=== PATIENT | female | born 1965 | race Caucasian/White ===

== ENCOUNTER 2023-02-09 13:08 | Outpatient (AMB) | payer OTHER, SELFPAY ==
--- NOTE | 2023-02-09 13:12 | A.OFFVIS_ITS ---
Intake Vital Signs 02/09/23 13:14 Height 5 ft Weight 196 lb BMI 38.3 BP 122/78 Blood Pressure Location Rt brachial Position Sitting Respiration 16 Pulse 86 Pulse Source Pulse Oximeter Temp 97.9 F Temp Source Temporal Artery Scan Pulse Oximetry (%) 97 Oxygen Delivery Method Room Air Intake Visit Reasons: Arthropic Psoriasis Allergies Corticosteroids (Glucocorticoids) Adverse Reaction (Unknown, Verified 02/09/23 13:19) Hallucinations fluoxetine Adverse Reaction (Unknown, Verified 02/09/23 13:19) Rash metformin Adverse Reaction (Verified 02/09/23 13:19) Abdominal Pain Medication List - Last Reconciled 02/09/23 by Ellis Arnold MD apremilast (Otezla) 30 mg PO BID diclofenac sodium 1% 1 - 2 grams topical QID PRN fluoride (sodium) 1.1% PO DAILY hydrochlorothiazide 25 mg PO DAILY lisinopril 5 mg PO DAILY sertraline 12.5 mg PO DAILY HPI HPI Comments History of Present Illness Details This is a 57-year-old female who presents for evaluation of psoriatic arthritis. 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 She states that she had psoriasis since her 20s. She was diagnosed with psoriatic arthritis in 2006. She was on multiple DMARDs. Most recently she was started on Otezla last year and it is working quite well for her joints. Her skin psoriasis has not been a problem in recent years. Today patient is feeling very well overall. She gets some lower back stiffness in the morning that can last up to 30 minutes, she occasionally takes Aleve for her low back pain if she knows that she will have to be active that day. [facility] Medical History Degenerative joint disease of hand Essential hypertension Factor II deficiency GERD (gastroesophageal reflux disease) Lactose intolerance Low back pain Major depressive disorder Microscopic colitis Osteitis Pain in joint, multiple sites Psoriatic arthritis Rheumatic fever Rosacea Surgical History S/P ectopic Family History Mother Pancreatic cancer, Onset Age: 86 Brother Type 2 diabetes mellitus, Onset Age: 60 History of substance abuse Sister Hypertension Hyperlipidemia Arthritis Brother Stroke, Onset Age: 56 Essential hypertension Mixed hyperlipidemia Father Stroke Brother Myocardial infarction Social History Alcohol intake: current Alcohol intake frequency: a few times a month Patient Tobacco Use Status: Former Tobacco user Quit Date: 2000 Cigarettes Per Day: 10 Years Smoked: 6 Female Reproductive History Menstrual Total pregnancies: 1 Ab spontaneous: 1 Review of Systems Musc Reports back pain, Reports arthralgias and Reports stiffness Physical Exam Vital Signs: Last Vital Signs Temp 97.9 F 02/09/23 13:14 Pulse 86 02/09/23 13:14 Resp 16 02/09/23 13:14 BP 122/78 02/09/23 13:14 Pulse Ox 97 02/09/23 13:14 Oxygen Delivery Method Room Air 02/09/23 13:14 BMI result Body Mass Index 38.3 Const General: cooperative and healthy appearing Nutritional Appearance: obese Orientation/consciousness: patient oriented x3 Limitations: no limitations HEENT Head: Yes normocephalic and Yes atraumatic Mouth: moist mucous membranes Resp Effort & Inspection: normal respiratory effort and able to speak in complete sentences Auscultation: clear to auscultation bilaterally Cardio Rate: regular rate Rhythm: regular rhythm Heart sounds: S1 normal heart sound present GI Inspection: No distended Palpation (GI): Soft to palpation and nontender Skin General skin exam: no rashes or lesions noted Neuro General: patient oriented x3 Extrem Other: No active synovitis Equivocal CE test bilaterally Results Reviewed Results Reviewed: Labs 05/2022? CRP 31 (<9) ESR 49 CBC unremarkable Assessment & Plan Assessment & Plan (1) Psoriatic arthritis: Comment: dx 2006 SSZ 2011 effective- until 2019. Medication was no longer available during the pandemic 2019 ineffective Otezla 2021 very effective Code(s): L40.50 - Arthropathic psoriasis, unspecified Plan: This is a 57-year-old female with past medical history of psoriasis and p soriatic arthritis who presents as a new patient. 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 Patient is doing very well overall on Otezla with no reported side effects. No mood changes. Continue Otezla 30 mg Twice daily. Check labs before next visit in 3 months Patient gets intermittent morning stiffness of her back improved with ibuprofen. Advised patient that if her back pain becomes progressively worse will consider SI joint x-rays and/or MRI Orders: Orders Comprehensive Met. Panel 3 Months L40.50 - Arthropathic psoriasis, unspecified C Reactive Protein 3 Months L40.50 - Arthropathic psoriasis, unspecified Complete Blood Count Auto Diff 3 Months L40.50 - Arthropathic psoriasis, unspecified Erythrocyte Sedimentation Rate 3 Months L40.50 - Arthropathic psoriasis, unspecified Hepatitis A,B,C Profile 3 Months Z11.59 - Encounter for screening for other viral diseases T Spot TB 3 Months Z11.7 - Encounter for testing for latent tuberculosis infection Medications: New apremilast (Otezla) 30 mg PO BID 180 tabs 1RF Coding Level of Care Code New Pt Level 3 (71367) Diagnoses Psoriatic arthritis L40.50
[2023-02-09 13:14] VITALS: BP 122/78; PULSE 86; RESP 16; TEMP 36.6; O2SAT 97; BMI 38.3
== END 2023-02-09 13:46 | disposition home or self-care (01) ==
PROVIDERS: Referring Provider Nurse Practitioner Family; Visit Provider Student in an Organized Health Care Education/Training Program
DX: L40.50 Arthropathic psoriasis, unspecified (principal)
CPT/HCPCS: 99203

== ENCOUNTER → 2023-02-09 13:08 | Outpatient (BNVA) | payer OTHER, SELFPAY | PROVIDERS: Referring Provider Nurse Practitioner Family; Visit Provider Student in an Organized Health Care Education/Training Program ==

== ENCOUNTER 2023-05-13 13:36 | Outpatient (AMB) | payer OTHER, SELFPAY ==
--- NOTE | 2023-05-13 13:39 | A.OFFVIS_ITS ---
Intake Vital Signs 05/13/23 13:40 Height 5 ft 0.51 in Weight 196 lb 10.437 oz BMI 37.8 BP 118/64 Blood Pressure Location Rt brachial Position Sitting Pulse 82 Pulse Source Pulse Oximeter Temp 97.2 F Temp Source Skin Pulse Oximetry (%) 94 Intake Visit Reasons: PsA Intake Note: Pt presents today for her 2nd visit to discuss lab results. She continues with Otezla bid and occasional use of ibuprofen. 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: No Accompanied by: Self / Same As Patient Allergies Corticosteroids (Glucocorticoids) Adverse Reaction (Unknown, Verified 05/13/23 13:43) Hallucinations fluoxetine Adverse Reaction (Unknown, Verified 05/13/23 13:43) Rash metformin Adverse Reaction (Verified 05/13/23 13:43) Abdominal Pain Medication List - Last Reconciled 05/13/23 by Ellis Arnold MD apremilast (Otezla) 30 mg PO BID diclofenac sodium 1% 1 - 2 grams topical QID PRN fluoride (sodium) 1.1% PO DAILY hydrochlorothiazide 12.5 mg PO DAILY lisinopril 5 mg PO DAILY sertraline 12.5 mg PO DAILY HPI HPI Comments History of Present Illness Details 58-year-old female with psoriasis and ps oriatic arthritis returns for follow-up. On Otezla 30 mg Twice daily. States that she is doing well overall. Recently she has been having some right lower back and right buttock pain. Worse with walking. She has morning stiffness of her back lasting around 10 minutes. She also gets right shoulder pain that she believes is due to her lying on her right side while sleeping. Has any swollen joints. Psoriasis is well controlled except for a few patches on her elbows. She is compliant with Otezla. States that she received a notification from her insurance company stating that Otezla would not be covered. Initial history: This is a 57-year-old female who presents for evaluation of psoriatic arthritis. 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 She states that she had psoriasis since her 20s. She was diagnosed with psoriatic arthritis in 2006. She was on multiple DMARDs. Most recently she was started on Otezla last year and it is working quite well for her joints. Her skin psoriasis has not been a problem in recent years. Today patient is feeling very well overall. She gets some lower back stiffness in the morning that can last up to 30 minutes, she occasionally takes Aleve for her low back pain if she knows that she will have to be active that day. [facility] Medical History (Updated 05/13/23 @ 14:41 by Ellis Arnold MD) Rheumatic fever Factor II deficiency Osteitis Microscopic colitis Rosacea Major depressive disorder Essential hypertension Low back pain GERD (gastroesophageal reflux disease) Degenerative joint disease of hand Lactose intolerance Pain in joint, multiple sites Psoriatic arthritis Surgical History S/P ectopic Family History Mother Pancreatic cancer, Onset Age: 86 Brother Type 2 diabetes mellitus, Onset Age: 60 History of substance abuse Sister Hypertension Hyperlipidemia Arthritis Brother Stroke, Onset Age: 56 Essential hypertension Mixed hyperlipidemia Father Stroke Brother Myocardial infarction Social History Alcohol intake: current Alcohol intake frequency: a few times a month Patient Tobacco Use Status: Former Tobacco user Quit Date: 2000 Cigarettes Per Day: 10 Years Smoked: 6 Review of Systems Musc Reports back pain, Denies joint swelling and Reports stiffness Skin/Breast Reports rash Physical Exam Vital Signs: Last Vital Signs Temp 97.2 F 05/13/23 13:40 Pulse 82 05/13/23 13:40 BP 118/64 05/13/23 13:40 Pulse Ox 94 05/13/23 13:40 BMI result Body Mass Index 37.8 Const General: cooperative and healthy appearing Nutritional Appearance: obese Orientation/consciousness: patient oriented x3 Limitations: no limitations HEENT Head: Yes normocephalic and Yes atraumatic Mouth: moist mucous membranes Resp Effort & Inspection: normal respiratory effort and able to speak in complete sentences Cardio Rate: regular rate Rhythm: regular rhythm Heart sounds: S1 normal heart sound present GI Inspection: No distended Palpation (GI): Soft to palpation and nontender Skin Other: Small psoriasis patches on extensor surface of both elbows Neuro General: patient oriented x3 Extrem Other: No active synovitis Angelita test 10-14.5 cm Negative straight leg raise test Equivocal CE test bilaterally Results Reviewed Results Reviewed: Labs 05/2022? CRP 31 (<9) ESR 49 CBC unremarkable Labs 04/2023? ESR 43? CRP 19.7 (<9.0) CBC unremarkable CMP unremarkable T spot negative Hepatitis a IgM negative hepatitis-B surface antigen negative Hepatitis-B core antibody IgM negative? Hepatitis-C antibody negative? Assessment & Plan Assessment & Plan (1) Psoriatic arthritis: Comment: dx 2006 SSZ 2011 effective- until 2019. Medication was no longer available during the pandemic Humira 2019 ineffective Otezla 2021 very effective Code(s): L40.50 - Arthropathic psoriasis, unspecified Plan: This is a 58-year-old female with past medical history of psoriasis and psori atic arthritis who presents for follow-up. On Otezla 30 mg Twice daily. Patient is having right lower back pain and right buttock pain, worse with activity with morning stiffness lasting 10-15 minutes. Symptoms rather consistent with degenerative spinal arthritis rather than inflammatory sacroiliitis. If patient's symptoms continue to progress. Will consider checking SI joint x-rays to evaluate for sacroiliitis Continue Otezla 30 mg Twice daily. Check labs before next visit in 4 months (2) CRP elevated: Code(s): R79.82 - Elevated C-reactive protein (CRP) Plan: Patient has persistently elevated CRP. No symptoms of active inflammatory arthritis. There are no fevers or weight loss. Can be related to metabolic syndrome Plan I spent 26 minutes reviewing patient's chart, evaluating patient, ordering diagnostic workup, counseling patient and documenting in the chart Orders: Orders C Reactive Protein 4 Months L40.50 - Arthropathic psoriasis, unspecified Erythrocyte Sedimentation Rate 4 Months L40.50 - Arthropathic psoriasis, unspecified Complete Blood Count Auto Diff 4 Months L40.50 - Arthropathic psoriasis, unspecified Comprehensive Met. Panel 4 Months L40.50 - Arthropathic psoriasis, unspecified Coding Level of Care Code Est Pt Level 4 (26218) Diagnoses Psoriatic arthritis L40.50 CRP elevated R79.82
[2023-05-13 13:40] VITALS: BP 118/64; PULSE 82; TEMP 36.2; O2SAT 94; BMI 37.8
== END 2023-05-13 14:23 | disposition home or self-care (01) ==
PROVIDERS: Visit Provider Student in an Organized Health Care Education/Training Program
DX: L40.50 Arthropathic psoriasis, unspecified (principal); R79.82 Elevated C-reactive protein (CRP)
CPT/HCPCS: 99214

== ENCOUNTER → 2023-05-13 13:36 | Outpatient (BNVA) | payer OTHER, SELFPAY | PROVIDERS: Visit Provider Student in an Organized Health Care Education/Training Program ==

== ENCOUNTER 2023-09-13 16:12 | Outpatient (AMB) | payer OTHER, SELFPAY ==
--- NOTE | 2023-09-13 16:11 | A.OFFVIS_ITS ---
Intake Vital Signs 09/13/23 16:14 Height 5 ft 0.5 in Weight 198 lb 13.711 oz BMI 38.2 BP 108/64 Blood Pressure Location Rt brachial Position Sitting Pulse 88 Pulse Source Pulse Oximeter Temp 96.9 F Temp Source Skin Intake Visit Reasons: PsA Intake Note: Patient last seen 05/13/23 presents today for follow up and test results. Pt did not complete labs, LVM 09/09.New lab slips printed and she will take them to [facility] in [place]. 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 Required: No Accompanied by: Self / Same As Patient Allergies Corticosteroids (Glucocorticoids) Adverse Reaction (Unknown, Verified 09/13/23 16:16) Hallucinations fluoxetine Adverse Reaction (Unknown, Verified 09/13/23 16:16) Rash metformin Adverse Reaction (Verified 09/13/23 16:16) Abdominal Pain Medication List - Last Reconciled 09/13/23 by Ellis Arnold MD apremilast (Otezla) 30 mg PO BID diclofenac sodium 1% 1 - 2 grams topical QID PRN fluoride (sodium) 1.1% PO DAILY hydrochlorothiazide 12.5 mg PO DAILY lisinopril 5 mg PO DAILY sertraline 12.5 mg PO DAILY HPI HPI Comments History of Present Illness Details 58-year-old female with psoriasis and ps oriatic arthritis returns for follow-up. On Otezla 30 mg Twice daily. Patient stated that for the 1 month of June she was sick with bronchitis and she needed antibiotics and inhalers. Patient gets significant psychiatric side effects with steroids and she did not take any steroids. She states that for the last 2 weeks she has been having right shoulder pain. She does not recall any significant trauma to the shoulder except for throwing a ball to her puppy twice. She recalls that more than 20 years ago she had small tear in her right rotator cuff and received a steroid injection, she had significant psychiatric side effects after the injection and needed to go to the hospital. For the last few months she has been having right lower back pain, worse with activity as well as pain on the outside of her right hip. Her psoriasis is doing well overall. Except for stubborn patches on the extensor surface of her elbows. Those are stable Initial history: This is a 57-year-old female who presents for evaluation of psoriatic arthritis. 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 She states that she had psoriasis since her 20s. She was diagnosed with psoriatic arthritis in 2006. She was on multiple DMARDs. Most recently she was started on Otezla last year and it is working quite well for her joints. Her skin psoriasis has not been a problem in recent years. Today patient is feeling very well overall. She gets some lower back stiffness in the morning that can last up to 30 minutes, she occasionally takes Aleve for her low back pain if she knows that she will have to be active that day. [facility] Medical History (Updated 09/13/23 @ 16:45 by Ellis Arnold MD) Rheumatic fever Factor II deficiency Osteitis Microscopic colitis Rosacea Major depressive disorder Essential hypertension Low back pain GERD (gastroesophageal reflux disease) Degenerative joint disease of hand Lactose intolerance Pain in joint, multiple sites Psoriatic arthritis Surgical History S/P ectopic Family History Mother Pancreatic cancer, Onset Age: 86 Brother Type 2 diabetes mellitus, Onset Age: 60 History of substance abuse Sister Hypertension Hyperlipidemia Arthritis Brother Stroke, Onset Age: 56 Essential hypertension Mixed hyperlipidemia Father Stroke Brother Myocardial infarction Social History Alcohol intake: current Alcohol intake frequency: a few times a month Patient Tobacco Use Status: Former Tobacco user Quit Date: 2000 Cigarettes Per Day: 10 Years Smoked: 6 Review of Systems Musc Reports back pain, Reports limited range of motion and Reports stiffness Physical Exam Vital Signs: Last Vital Signs Temp 96.9 F 09/13/23 16:14 Pulse 88 09/13/23 16:14 BP 108/64 09/13/23 16:14 BMI result Body Mass Index 38.2 Const General: cooperative and healthy appearing Nutritional Appearance: obese Orientation/consciousness: patient oriented x3 Limitations: no limitations HEENT Head: Yes normocephalic and Yes atraumatic Resp Effort & Inspection: normal respiratory effort and able to speak in complete sentences Cardio Rate: regular rate Rhythm: regular rhythm Skin Other: Small psoriasis patches on extensor surface of both elbows Neuro General: patient oriented x3 Extrem Other: No active synovitis Negative empty can test bilaterally Positive infraspinatus test on the right Positive lift-off test on the right Right trochanteric bursa area tenderness with negative Carlos's test Right lower paraspinal muscle tenderness Angelita test 10-14.5 cm Negative CE test bilaterally y Results Reviewed Results Reviewed: Labs 05/2022? CRP 31 (<9) ESR 49 CBC unremarkable Labs 04/2023? ESR 43? CRP 19.7 (<9.0) CBC unremarkable CMP unremarkable T spot negative Hepatitis a IgM negative hepatitis-B surface antigen negative Hepatitis-B core antibody IgM negative? Hepatitis-C antibody negative? Assessment & Plan Assessment & Plan (1) Psoriatic arthritis: Comment: dx 2006 SSZ 2011 effective- until 2019. Medication was no longer available during the pandemic Humira 2019 ineffective Otezla 2021 very effective Code(s): L40.50 - Arthropathic psoriasis, unspecified Plan: This is a 58-year-old female with past medical history of psoriasis and psoriatic arthritis who presents for follow-up. On Otezla 30 mg Twice daily. Doing well overall. Psoriasis and psoriatic arthritis are well controlled. I do not see any swollen joints. She continues to have small psoriasis patches on the extensor surface of both elbows, those have been stubborn. Check labs to evaluate disease activity. Continue Otezla 30 mg Twice daily. Check labs before next visit in 4 months (2) Pain in joint, multiple sites: Code(s): M25.50 - Pain in unspecified joint Plan: Patient is having right shoulder pain she has known history of right rotator cuff tear. He is also having right lower back pain and right trochanteric bursitis pain. This can be precipitated by her right lower back pain. Patient gets significant psychiatric side effects with steroid she refuses any steroid injections Start OTC Aleve 440 mg Twice daily for anti-inflammatory action. Patient will see a chiropractor soon for her low back pain. I provided patient with a printout of home exercises for greater trochanteric pain syndrome. (3) CRP elevated: Code(s): R79.82 - Elevated C-reactive protein (CRP) Plan: Patient has persistently elevated CRP. No symptoms of active inflammatory arthritis. There are no fevers or weight loss. Can be related to metabolic syndrome Plan I spent 26 minutes reviewing patient's chart, evaluating patient, ordering diagnostic workup, counseling patient and documenting in the chart Orders: Orders Complete Blood Count Auto Diff 4 Months L40.50 - Arthropathic psoriasis, unspecified Erythrocyte Sedimentation Rate 4 Months L40.50 - Arthropathic psoriasis, unspecified Comprehensive Met. Panel 4 Months L40.50 - Arthropathic psoriasis, unspecified C Reactive Protein 4 Months L40.50 - Arthropathic psoriasis, unspecified Coding Level of Care Code Est Pt Level 4 (71264) Diagnoses Psoriatic arthritis L40.50 Pain in joint, multiple sites M25.50 CRP elevated R79.82
[2023-09-13 16:14] VITALS: BP 108/64; PULSE 88; TEMP 36.1; BMI 38.2
== END 2023-09-13 16:39 | disposition home or self-care (01) ==
PROVIDERS: PCP Nurse Practitioner Family; Visit Provider Student in an Organized Health Care Education/Training Program
DX: L40.50 Arthropathic psoriasis, unspecified (principal); M25.50 Pain in unspecified joint; R79.82 Elevated C-reactive protein (CRP)
CPT/HCPCS: 99214

== ENCOUNTER → 2023-09-13 16:12 | Outpatient (BNVA) | payer OTHER, SELFPAY | PROVIDERS: PCP Nurse Practitioner Family; Visit Provider Student in an Organized Health Care Education/Training Program ==

== ENCOUNTER 2024-07-24 08:33 | Outpatient (AMB) | payer OTHER, SELFPAY ==
--- NOTE | 2024-07-24 08:34 | MHC.OFFVIS ---
Vital Signs 07/24/24 08:39 Height 5 ft 0.5 in Weight 202 lb 6.15 oz BMI 38.9 BP 115/72 Blood Pressure Location Lt brachial Position Sitting Pulse 79 Pulse Source Pulse Oximeter Pulse Oximetry (%) 98 Oxygen Delivery Method Room Air Intake Visit Reasons: PsA Intake Note: Patient presents for PsA. Allergies Corticosteroids (Glucocorticoids) Adverse Reaction (Unknown, Verified 07/24/24 08:37) Hallucinations fluoxetine Adverse Reaction (Unknown, Verified 07/24/24 08:37) Rash metformin Adverse Reaction (Verified 07/24/24 08:37) Abdominal Pain Medication List - Last Reconciled 07/24/24 by Ellis Arnold MD apremilast (Otezla) 30 mg PO BID diclofenac sodium 1% 1 - 2 grams topical QID PRN fluoride (sodium) 1.1% PO DAILY hydrochlorothiazide 12.5 mg PO DAILY lisinopril 2.5 mg PO DAILY sertraline 12.5 mg PO DAILY HPI Comments Details: 59-year-old female with psoriasis and psoriatic arthritis returns for follow-up. On Otezla 30 mg Twice daily. After last visit I suggested that patient start taking Aleve 440 mg Twice daily to treat her pains. Patient apparently misunderstood me and she has been taking it regularly for the last 6 months. She states that her joint pains are overall improved. She was diagnosed with obstructive sleep apnea and started on a CPAP machine which helps. Since she started using the CPAP machine her blood pressure meds have been cut in half. She denies any significant psoriasis rashes. Initial history: This is a 57-year-old female who presents for evaluation of psoriatic arthritis. 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 She states that she had psoriasis since her 20s. She was diagnosed with psoriatic arthritis in 2006. She was on multiple DMARDs. Most recently she was started on Otezla last year and it is working quite well for her joints. Her skin psoriasis has not been a problem in recent years. Today patient is feeling very well overall. She gets some lower back stiffness in the morning that can last up to 30 minutes, she occasionally takes Aleve for her low back pain if she knows that she will have to be active that day. [facility] Medical History ADRIANNA (obstructive sleep apnea) Rheumatic fever Factor II deficiency Osteitis Microscopic colitis Rosacea Major depressive disorder Essential hypertension Low back pain GERD (gastroesophageal reflux disease) Degenerative joint disease of hand Lactose intolerance Pain in joint, multiple sites Psoriatic arthritis Surgical History S/P ectopic Family History Mother Pancreatic cancer, Onset Age: 86 Brother Type 2 diabetes mellitus, Onset Age: 60 History of substance abuse Sister Hypertension Hyperlipidemia Arthritis Brother Stroke, Onset Age: 56 Essential hypertension Mixed hyperlipidemia Prostate cancer Father Stroke Brother Myocardial infarction Social History Alcohol intake: current Alcohol intake frequency: a few times a month Patient Tobacco Use Status: Former Tobacco user Cigarettes Per Day: 10 Years Smoked: 6 Review of Systems Musc Reports arthralgias, Denies joint swelling and Denies stiffness Physical Exam Vital Signs: Last Vital Signs Pulse 79 07/24/24 08:39 BP 115/72 07/24/24 08:39 Pulse Ox 98 07/24/24 08:39 Oxygen Delivery Method Room Air 07/24/24 08:39 BMI result Body Mass Index 38.9 Const General: cooperative and healthy appearing Nutritional Appearance: obese Orientation/consciousness: patient oriented x3 Limitations: no limitations HEENT Head: Yes normocephalic and Yes atraumatic Mouth: moist mucous membranes Resp Effort & Inspection: normal respiratory effort and able to speak in complete sentences Auscultation: clear to auscultation bilaterally Cardio Rate: regular rate Rhythm: regular rhythm Skin Other: Very subtle dry skin patches on the extensor aspect of both elbows Neuro General: patient oriented x3 Extrem Other: No active synovitis today Assessment & Plan Assessment & Plan (1) Psoriatic arthritis: Comment: dx 2006 SSZ 2011 effective- until 2019. Medication was no longer available during the pandemic Hum2019 ineffective Otezla 2021 very effective Code(s): L40.50 - Arthropathic psoriasis, unspecified Category: Medical Plan: This is a 59-year-old female with psoriasis and psoriatic arthritis who presents for follow-up. On Otezla 30 mg Twice daily. Patient has been taking naproxen 440 mg Twice daily regularly since last visit. Apparently she misunderstood me, I meant to take it only for 2-3 weeks. Discontinue naproxen and take it only as needed Her inflammatory markers are chronically elevated likely due to metabolic syndrome. Continue Otezla 30 mg Twice daily. Labs before next visit in 6 months (2) CRP elevated: Code(s): R79.82 - Elevated C-reactive protein (CRP) Category: Medical Plan: Patient has persistently elevated CRP. No symptoms of active inflammatory arthritis. There are no fevers or weight loss. Can be related to metabolic syndrome Plan I spent 26 minutes reviewing patient's chart, evaluating patient, ordering diagnostic workup, counseling patient and documenting in the chart Orders: Orders Erythrocyte Sedimentation Rate 6 Months L40.50 - Arthropathic psoriasis, unspecified Complete Blood Count Auto Diff 6 Months L40.50 - Arthropathic psoriasis, unspecified Comprehensive Met. Panel 6 Months L40.50 - Arthropathic psoriasis, unspecified C Reactive Protein 6 Months L40.50 - Arthropathic psoriasis, unspecified Coding Level of Care Code Est Pt Level 4 (86707) Diagnoses Psoriatic arthritis L40.50 CRP elevated R79.82
[2024-07-24 08:39] VITALS: BP 115/72; PULSE 79; O2SAT 98; BMI 38.9
--- OUTSIDE RECORDS SUMMARY | 2024-07-24 08:43 | XMS_ITS | Continuity of Care Document ---
Author Organization [facility], , [facility], OFFICE Address [address] [place] [address] Care Team Providers Care Rn Visiting Name Role Phone KEVIN SALINAS [employer] RAFIQ FLOOD Orthopedic Surgeon NISHA JARA Primary Care Provider SIVAN CATALAN [employer] Assessment Encounter Date Assessment Date Assessment LastModified by Organization Details LastModified Time 07/03/2024 07/03/2024 F/u in 6 months as scheduled and via portal [email or web address] Not available 07/03/2024 08:41:21 Plan of Treatment Reminders Order Date Submit Date Provider Last Modified By Organization Details Last Modified Time Details Appointments Mammo Roxanne de la rosa 2024 02:30P M [facility] Mammography Not available Not available Not available LAB Follo w-Up 2024 07:40A M [facility] Lab Not available Not available Not available Casper ess Visit 30 2024 02:00P M NISHA Jara NP Not available Not available Not available Lab HbA1c (hemo globi n A1c), blood 2023 025 [facility], [address] [place] [address], [id number], 07/03/2024 08:38:48 BMP, serum or plasm a 2023 025 [facility], [address] [place] [address], [id number], 07/03/2024 08:38:48 ESR (eryt hrocy te sedim entat ion rate) , blood 2023 [email or web address] [place] [address] Lab, [address] [place] [address], [id number], 07/19/2024 07:18:54 C-keron ctive prote in, quant itati ve, serum or plasm a 2023 024 [email or web address], [address] [place] [address], [id number], 07/12/2024 11:43:37 pap, IG - 30-65 + years old [address] [facility], [address] [place] [address], [id number], 07/06/2024 14:27:42 HPV E6+E7 mRNA, quali tativ e PCR, cervi x [address] [facility], [address] [place] [address], [id number], 07/06/2024 07:59:39 Referral None recor ded. Procedures None recor ded. Surgeries None recor ded. Imaging MAMMO , scree tad, tomos ynthe sis, bilat eral - 2nd Look Consu lt/Di ag Mammo /US Breas t/Rd ded Asp/B reast Bx/Cl ip Place ment, as clini kasey indic ated. 2023 024 [facility] (Imaging), [address], [place], [address], 07/03/2024 13:06:20 Medication Orders lisin opril 2.5 mg table t 2023 024 [facility][id number], [address] [place], [id number], 07/03/2024 08:23:42 Patient TargetsNo targets recorded. Patient InstructionsNo instructions recorded. Reason for Referral None Reported. Problems Name Problem SNOMED Code Status Onset Date Resolution Date Notes Provider Name and Address Organization Details Recorded Time Microcal cificati ons of the breast 45610766 Completed 05/26/2016 Payton Best D.O. [address] [place] [address], [address] , [facility] 6 08:40:41 Brachial neuritis 86522990 Completed 200512/05/2018 Payton Best D.O. [address] [place] [address], [address] , [facility] 10:09:59 Increase d blood pressure 88172288 Completed 01/21/2016 Payton Best D.O. [address] [place] [address], [address] , [facility] 6 10:19:13 Obesity 944137153 Completed 04/14/2022 Removal Reason: morbid obesity added to the problem list Elizabeth Lin LPN [facility] 2 12:40:41 [facility] hyperten aaliyah 87235704 Active Not Available [facility] 3 05:45:32 Shoulder pain 51142815 Completed 01/21/2016 Payton Best D.O. [address] [place] [address], , [facility] 6 10:18:52 Neoplasm of skin 952070085 Completed 01/21/2016 Payton Best D.O. [address] [place] [address], , [facility] 6 10:18:02 Major depressi ve disorder 285594870 Completed 12/29/2023 NISHA Jara NP [address] [place] [address], , [facility] 4 11:12:47 Allergic rhinitis 32475033 Active Not Available [facility] 3 05:45:32 Rhinitis medicame ntosa 95240690 Completed 05/17/2014 MISTY Giron [address] [place] [address], , [facility] 5 15:22:18 Upper respirat ory infectio n 51677950 Completed 05/17/2014 MISTY Giron [address] [place] [address], , [facility] 5 15:22:18 Photoder matitis 51920480 Completed 01/21/2016 sun/ROSENDOZ Payton Best D.O. [address] [place] [address], [address] , [facility] 6 10:18:14 Depressi ve disorder 49465425 Completed 05/17/2014 MISTY Giron [address] [place] [address], , [facility] 5 15:22:18 Impaired fasting glycemia 476920435 Active Not Available [facility] 3 05:45:32 Gastroes ophageal reflux disease 103046230 Active Not Available [facility] 3 05:45:32 Multiple joint pain 46283552 Completed 12/29/2023 NISHA Jara NP [address] [place] [address], [address] , [facility] 4 11:12:26 Degenera tive joint disease of hand 77271511 Completed 12/29/2023 NISHA Jara NP [address] [place] [address], [address] , [facility] 4 11:09:49 Menopaus al flushing 897698224 Completed 01/21/2016 Payton Best D.O. [address] [place] [address], , [facility] 6 10:16:38 Pneumoni a 156190539 Completed 01/21/2016 Payton Best D.O. [address] [place] [address], , [facility] 6 10:16:52 Anemia 928662590 Completed 09/18/2019 Payton Best D.O. [address] [place] [address], , [facility] 0 10:17:19 Lymphade nopathy 95880227 Completed 01/21/2016 Payton Best D.O. [address] [place] [address], [address] , [facility] 6 10:18:27 Microsco pic colitis 648585546 Active diagnose d 10 years ago with GI also lactose intolera nce. Not Available [facility] 3 05:45:32 Bacteria l pneumoni a 57083802 Completed 01/21/2016 Payton Best D.O. [address] [place] [address], [address] , [facility] 6 10:20:08 Electroc ardiogra m abnormal 298130302 Completed 01/21/2016 Payton Best D.O. [address] [place] [address], [address] , [facility] 6 10:17:43 Cough 69173709 Completed 01/21/2016 persista nt after pneumoni a Payton Best D.O. [address] [place] [address], [address] , [facility] 6 10:20:05 Postmeno [facility] state 70686897 Completed 201504/02/2024 NISHA Jara NP [address] [place] [address], [address] , [facility] 4 12:10:22 Factor II deficien cy 65101905 Active 2015 ASA PRN NISHA Jara NP [address] [place] [address], [address] , [facility] 4 11:10:03 Major depressi on, melancho lic type 237136244 Completed 201605/31/2017 Payton Best D.O. [address] [place] [address], [address] , [facility] 7 09:37:12 Rosacea 424560796 Active 2018 R eye Not Available [facility] 3 05:45:32 Psoriati c arthriti s 759551557 Active 2021 Not Available [facility] 3 05:45:32 Osteitis 066761412 Completed 202104/02/2024 osteitis pubis L>R per MRI 02/24/22 NISHA Jara NP [address] [place] [address], [address] , [facility] 4 12:10:36 Morbid obesity 361193481 Completed 202112/02/2023 BMI > or = 35 with diagnosi s of hyperten aaliyah NISHA Jara NP [address] [place] [address], [address] , [facility] 4 18:45:46 Prediabe britton 690188548 Completed 202104/29/2023 NISHA Jara NP [address] [place] [address], [address] , [facility] 3 12:40:51 Blephari tis 36127999 Active 2022 NISHA Jara NP [address] [place] [address], [address] , [facility] 3 11:58:30 Intermit tent palpitat ions 085409195 Active 2022 NISHA Jara NP [address] [place] [address], [address] , [facility] 3 12:17:33 Large tonsils 662283222 Active 2022 NISHA Jara NP [address] [place], [address] , [facility] 3 12:21:17 Obstruct damir sleep apnea syndrome 51959355 Active 2023 HST 11/2023 - followin g with sleep med NISHA Jara NP [address] [place], [address] , [facility] 4 18:46:08 Moderate recurren t major depressi on 33513400 Active 2023 NISHA Jara NP [address] [place] [address], [address] , [facility] 4 11:12:42 Contusio n 119779400 Completed 200210/03/2011 MISTY Giron [address] [place] [address], [address] , [facility] 5 15:22:19 Palpitat ions 61632073 Completed 200310/03/2011 MISTY Giron [address] [place] [address], [address] , [facility] 5 15:22:19 Constipa tion 47149646 Completed 200410/03/2011 MISTY Giron [address] [place] [address], [address] , [facility] 5 15:22:18 Diarrhea 82660930 Completed 10/03/2011 MISTY Giron [address] [place] [address], [address] , [facility] 5 15:22:19 Disorder of shoulder 268899153 Completed 200610/03/2011 MISTY Giron [address] [place] [address], [address] , [facility] 5 15:22:19 Multiple joint pain 39110674 Completed 10/03/2011 NISHA Jara NP [address] [place] [address], [address] , [facility] 4 11:12:26 Multiple joint pain 18283665 Completed 09/20/2012 NISHA Jara NP [address] [place] [address], [address] , [facility] 4 11:12:26 Neck pain 75265060 Completed 200005/14/2013 MISTY Giron [address] [place] [address], [address] , [facility] 5 15:22:19 Closed fracture of ankle 50425586 Completed 06/06/2013 MISTY Giron [address] [place] [address], [address] , [facility] 5 15:22:19 Bacteria l pneumoni a 54788627 Completed 200710/03/2011 Payton Best D.O. [address] [place] [address], [address] , [facility] 6 10:20:08 Psoriasi s with arthropa thy Completed 05/14/2013 MISTY Giron [address] [place] [address], [address] , [facility] 5 15:22:19 Diarrhea of presumed infectio us origin 03169640 Completed 10/03/2011 MISTY Giron [address] [place] [address], [address] , [facility] 5 15:22:18 Closed fracture of forearm 24721030 Completed 200210/03/2011 MISTY Giron [address] [place] [address], [address] , [facility] 5 15:22:19 Major depressi on, melancho lic type 896800699 Completed 05/17/2014 Payton Best D.O. [address] [place] [address], [address] , [facility] 7 09:37:12 Female genitali a finding 819771943 Completed 10/03/2011 MISTY Giron [address] [place] [address], [address] , [facility] 5 15:22:19 Pain in elbow 75834954 Completed 200210/03/2011 MISTY Giron [address] [place] [address], [address] , [facility] 5 15:22:19 Neoplasm of uncertai n behavior of skin 89656794 Completed 09/20/2012 MISTY Giron [address] [place] [address], [address] , [facility] 5 15:22:18 Pneumoni a 173581899 Completed 200705/14/2013 Payton Best D.O. [address] [place] [address], [address] , [facility] 6 10:16:52 Irregula r periods 29327403 Completed 200410/03/2011 MISTY Girno [address] [place] [address], [address] , [facility] 5 15:22:18 Bipolar I disorder , single manic episode 9934968 Completed 200705/17/2014 reaction to steroid injectio n MISTY Giron [address] [place] [address], [address] , [facility] 5 15:22:18 Psoriasi s 2830027 Active 2006 with psoriati c arthriti s Not Available [facility] 3 05:45:33 Spasm 89816766 Completed 200610/03/2011 MISTY Giron [address] [place] [address], [address] , [facility] 5 15:22:19 Crohn's disease 52314554 Completed 05/14/2013 MISTY Giron [address] [place] [address], [address] , [facility] 5 15:22:18 Elevated blood-pr essure reading without diagnosi s of hyperten aaliyah 759980228 Completed 09/20/2012 MISTY Giron [address] [place] [address], [address] , [facility] 5 15:22:19 Backache 849248114 Completed 200010/03/2011 MISTY Giron [address] [place] [address], [address] , [facility] 5 15:22:19 Pain in wrist 76133746 Completed 09/20/2012 MISTY Giron [address] [place] [address], [address] , [facility] 5 15:22:19 Pain in wrist 27053198 Completed 200210/03/2011 MISTY Giron [address] [place] [address], [address] , [facility] 5 15:22:19 Malaise and fatigue 779525539 Completed 200710/03/2011 MISTY Giron [address] [place] [address], [address] , [facility] 5 15:22:19 Contusio n of toe 22826609 Completed 200510/03/2011 MISTY Giron [address] [place] [address], [address] , [facility] 5 15:22:19 Disorder of tendon of shoulder region 29150110 Completed 200210/03/2011 MISTY Giron [address] [place] [address], [address] , [facility] 5 15:22:19 Right lower quadrant pain 114657781 Completed 200010/03/2011 MISTY Giron [address] [place] [address], [address] , [facility] 5 15:22:19 Right upper quadrant pain 270018908 Completed 200010/03/2011 MISTY Giron [address] [place] [address], [address] , [facility] 5 15:22:19 Mood disorder 01288666 Completed 200709/20/2012 MISTY Giron [address] [place] [address], [address] , [facility] 5 15:22:18 Shoulder pain 23629118 Completed 200510/03/2011 Payton Best D.O. [address] [place] [address], [address] , [facility] 6 10:18:52 Premenst rual tension syndrome 52356261 Completed 200705/14/2013 MISTY Giron [address] [place] [address], [address] , [facility] 5 15:22:18 Alcohol dependen 83642966 Completed 12/05/2018 Payton Best D.O. [address] [place] [address], [address] , [facility] 10:15:32 Allergic asthma without status asthmati cus 54885140 Completed 05/17/2014 MISTY Giron [address] [place] [address], [address] , [facility] 5 15:22:18 Sprain of ankle 35587116 Completed 200710/03/2011 MISTY Giron [address] [place] [address], [address] , [facility] 5 15:22:19 Menstrua tion finding Completed 200710/03/2011 MISTY Giron [address] [place] [address], [address] , [facility] 5 15:22:19 Joint pain in ankle and foot Completed 200710/03/2011 MISTY Giron [address] [place] [address], [address] , [facility] 5 15:22:19 Breathin g painful 91241966 Completed 200710/03/2011 MISTY Giron [address] [place] [address], [address] , [facility] 5 15:22:19 Adjustme nt disorder with depresse d mood 95533693 Completed 05/14/2013 MISTY Giron [address] [place] [address], [address] , [facility] 5 15:22:18 Breast lump 26983343 Completed 200309/20/2012 MISTY Giron [address] [place] [address], [address] , [facility] 5 15:22:18 Mammogra phy abnormal 160974089 Completed 05/14/2013 MISTY Giron [address] [place] [address], [address] , [facility] 5 15:22:19 Common cold 67119680 Completed 200610/03/2011 MISTY Giron [address] [place] [address], [address] , [facility] 5 15:22:18 Abdomina l pain 31821680 Completed 200810/03/2011 MISTY Giron [address] [place] [address], [address] , [facility] 5 15:22:19 On examinat ion - a rash Completed 200710/03/2011 MISTY Giron [address] [place] [address], [address] , [facility] 5 15:22:19 Abnormal cervical Papanico laou smear 120585987 Completed 200301/21/2016 Payton Best D.O. [address] [place] [address], [address] , [facility] 6 10:20:00 Female genital organ symptoms 954941872 Completed 200010/03/2011 MISTY Giron [address] [place] [address], [address] , [facility] 5 15:22:18 Menopaus al symptom 42949256 Completed 200409/20/2012 MISTY Giron [address] [place] [address], [address] , [facility] 5 15:22:18 Premenop ausal menorrha lesa Completed 200705/14/2013 MISTY Giron [address] [place] [address], [address] , [facility] 5 15:22:18 Acquired disorder of keratini zation 455129880 Completed 10/03/2011 MISTY Giron [address] [place] [address], [address] , [facility] 5 15:22:18 Low back pain 048877917 Active 2001 Not Available [facility] 3 05:45:32 Pain in limb 94607799 Completed 200510/03/2011 MISTY Giron [address] [place] [address], [address] , [facility] 5 15:22:19 Menopaus al and postmeno pausal disorder s 836638708 Completed 05/14/2013 MISTY Giron [address] [place] [address], [address] , [facility] 5 15:22:18 Arthropa thy 615066415 Completed 200610/03/2011 MISTY Giron [address] [place] [address], [address] , [facility] 5 15:22:19 Difficul ty speaking Completed 200305/14/2013 MISTY Giron [address] [place] [address], [address] , [facility] 5 15:22:19 Vaginiti s and vulvovag initis Completed 10/03/2011 MISTY Giron [address] [place] [address], [address] , [facility] 5 15:22:18 Noninfec tious gastroen teritis 45462075 Completed 200805/14/2013 MISTY Giron [address] [place] [address], [address] , [facility] 15:22:18 Notes:microscopic colitis Problem Notes None recorded. Procedures Surgical History Date Name Laterality Status Provider Name and Address Organization Details Recorded Time 10/28/19 22 Obesity counseling completed JONH Sainz [address] [place] [address], [address], [facility] 10/27/2021 10:21:56 05/06/20 15 Tassoni - Colonoscopy completed Elton Leger MD [address] [place] [address], [address], [facility] 05/06/2015 11:00:10 07/18/18 86 Treat ectopic completed MISTY Giron [address] [place] [address], [address], [facility] 05/14/2013 12:17:32 Imaging Results None recorded. Procedure Notes None recorded. Medical Equipment None Reported. Allergies Allergen ID Allergen Name Allergen Category Reaction Reaction Severity Criticality Documentation Date Start Date Code Code System Note Provider Name and Address Organization Details Recorded Time 84171 fluoxetin e medicatio n rash Not available Not available 02/27/2009 4493 RxNorm Not Available [facility] 1 06:05:20 544428 Product containin g glucocort icoid (product) medicatio n hallucina tions Not available Not available 02/06/2019 81690 6006 SNOMED Jewels Simons [place] [facility] 2 10:48:15 603472 metformin medicatio n abdominal pain Not available Not available 09/18/2019 6809 RxNorm NISHA Jara NP [address] [place] [address], [address], [facility] 3 11:46:36 Medications Name Sig Start Date Stop Date Status Note LastModified by Organization Details LastModified Time doxycycli ne hyclate 100 mg capsule TAKE 1 CAPSULE BY MOUTH TWICE A DAY FOR 10 DAYS. active Not Available Not Available No t Available azithromy heather 250 mg tablet TAKE 2 TABLETS BY MOUTH TODAY, THEN TAKE 1 TABLET DAILY FOR 4 DAYS 08/19 completed Not Available Not Available Not Available sertralin e 100 mg tablet TAKE 1 TABLET BY MOUTH DAILY active Not Available Not Available No t Available sulfasala zine 500 mg tablet,de layed release TAKE 2 TABLETS BY MOUTH TWICE A DAY 04/29 completed Not Available Not Available Not Available clobetaso l 0.05 % topical cream active has steroids in it Not Available Not Available Not Available LOLA Ankle Brace 07/03 completed AIRCAST LEFT Not Available Not Available Not Available Veronica Low Dose Aspirin 81 mg tablet,de layed release Take 1 tablet every day by oral route. active pt does forget to take daily but tries to remember Not Available Not Available Not Available Zyrtec 10 mg tablet Take 1 tablet every day by oral route. active Not Available Not Available No t Available hydrocort isone acetate 25 mg rectal supposito ry INSERT 1 SUPPOSIT ORY TWICE A DAY BY RECTAL ROUTE FOR 6 DAYS. active Not Available Not Available No t Available Sulfazine EC 500 mg tablet,de layed release TAKE 2 TABLETS BY MOUTH TWICE A DAY active Not Available Not Available No t Available cefadroxi l 500 mg capsule 05/17 completed Not Available Not Available Not Available ofloxacin 0.3 % ear drops 05/17 completed Not Available Not Available Not Available calcipotr iene 0.005 % topical cream APPLY A THIN LAYER TO AFFECTED AREA TWICE A DAY (RUB IN GENTLYAN D COMP.. active Not Available Not Available No t Available ranitidin e 150 mg tablet TAKE 1 TABLET BY MOUTH 1-2 TIMES A DAY 05/02 completed Pt stopped when recalled Not Available Not Available Not Available polymyxin B sulfate 10,000 unit-trim ethoprim 1 mg/mL eye drops 02/06 completed Not Available Not Available Not Available hydrochlo rothiazid e 12.5 mg capsule active Not Available Not Available Not Available sertralin e 25 mg tablet TAKE 1/2 TABLET DAILY BY MOUTH active Not Available Not Available No t Available omeprazol e 20 mg capsule,d elayed release TAKE ONE CAPSULE BY MOUTH EVERY DAY 05/31 completed Not Available Not Available Not Available aspirin 81 mg chewable tablet Chew 1 tablet every day by oral route. 09/17 completed Not Available Not Available Not Available lisinopri l 5 mg tablet TAKE 1/2 TABLET BY MOUTH EVERY DAY DIRECTED 07/03 completed Not Available Not Available Not Available hydrochlo rothiazid e 25 mg tablet TAKE 1 TABLET BY MOUTH EVERY DAY 07/03 completed taking 12.5 mg (1/2 tablet) Not Available Not Available Not Available diclofena c sodium 50 mg tablet,de layed release TAKE 1 TABLET BY MOUTH TWICE A DAY 01/15 completed Not Available Not Available Not Available albuterol sulfate HFA 90 mcg/actua tion aerosol inhaler INHALE 2 PUFFS INTO THE LUNGS EVERY 6 HOURS NEEDED FOR WHEEZE active prn; has not needed to use in a long time 07/03/24 Not Available Not Available Not Available piroxicam 20 mg capsule TAKE 1 CAPSULE EVERY DAY 12/05 completed Not Available Not Available Not Available fluticaso ne propionat e 50 mcg/actua tion nasal spray,ezequiel pension INHALE 1 SPRAY(S) EVERY DAY BY INTRANAS AL ROUTE. 05/31 completed Not Available Not Available Not Available metformin ER 500 mg tablet,ex tended release 24 hr TAKE 1 TABLET BY MOUTH EVERY DAY 02/04 completed Not Available Not Available Not Available sertralin e 50 mg tablet Take 1 tablet every day by oral route. active Not Available Not Available No t Available lisinopri l 2.5 mg tablet Take 1 tablet every day by oral route. active Not Available Not Available No t Available metronida zole 0.75 % topical gel APPLY A THIN LAYER TOPICALL Y TO THE AFFECTED AREA(S) 2 TIMES PER DAY IN THE MORNING AND EVENING active Not Available Not Available No t Available loratadin e 10 mg tablet TAKE 1 TABLET BY MOUTH EVERY DAY 05/04 completed PRN Not Available Not Available Not Available amoxicill in 875 mg-potass ium clavulana te 125 mg tablet TAKE 1 TABLET BY MOUTH TWICE A DAY FOR 7 DAYS 04/02 completed Not Available Not Available Not Available nitrofura ntoin monohydra te/macroc rystals 100 mg capsule 09/17 completed Not Available Not Available Not Available Flovent HFA 110 mcg/actua tion aerosol inhaler 2 sprays twice daily 01/15 completed Not Available Not Available Not Available Aleve active 440 mg BID per rheumato logist Not Available Not Available Not Available Centrum 1 tab qd 03/15 completed Not Available Not Available Not Available sodium fluoride 1.1 % dental paste BRUSH ONCE DAILY ONTO TEETH AFTER FLOSSING AND LET SIT FOR 5 MIN. (DO NOT SWALLOW) , THEN RINSE. 04/02 completed Not Available Not Available Not Available metformin ER 500 mg 24 hr tablet,ex tended release (gastric retention ) TAKE 1 TABLET BY MOUTH EVERY DAY 02/04 completed Not Available Not Available Not Available hydrochlo rothiazid e 12.5 mg tablet TAKE 1 TABLET BY MOUTH EVERY DAY active Not Available Not Available No t Available peg 3350-elec trolytes 236 gram-22.7 4 gram-6.74 gram-5.86 gram solution active Not Available Not Available Not Available diclofena c 1 % topical gel APPLY 1 - 2 GRAMS TO THE AFFECTED AREA(S) BY TOPICAL ROUTE 4 TIMES PER DAY NEEDED active prn Not Available Not Available No t Available Triple Newton 3-6-9 08/19 completed Not Available Not Available Not Available Manuela DM Cough and Chest 10 mg-200 mg/5 mL oral liquid TAKE 5ML BY MOUTH EVERY 6 HOURS FOR 10 DAYS IF NEEDED FOR COUGH active Not Available Not Available No t Available Lotemax 0.5 % eye gel drops 12/05 completed Not Available Not Available Not Available Otezla 30 mg tablet TAKE 1 TABLET BY MOUTH TWICE A DAY active Not Available Not Available No t Available Flonase Allergy Relief active Not Available Not Available Not Available Otezla Starter 10 mg (4)-20 mg (4)-30 mg(47) tablets in a dose pack Use as directed on the packet:D ay 1: 10 mg in morningD ay 2: 10 mg in morning and 10 mg in eveningD ay 3: 10 mg in morning and 20 mg in eveningD ay 4: 20 mg in morning and 20 mg in eveningD ay 5: 20 mg in morning and 30 mg in eveningD ay 6 and thereaft er: 30 mg twice daily 02/04 completed Not Available Not Available Not Available Humira(CF ) Pen 40 mg/0.4 mL subcutane ous kit INJECT 0.4 ML UNDER THE SKIN EVERY 14 DAYS OR EVERY 2 WEEKS 10/27 completed Not Available Not Available Not Available Flowflex COVID-19 Antigen Home Test kit 11/02 completed Not Available Not Available Not Available Paxlovid 300 mg (150 mg x 2)-100 mg tablets in a dose pack TAKE 3 TABLETS BY MOUTH TWICE A DAY FOR 5 DAYS 05/06 completed Not Available Not Available Not Available Vitals Date Recorded Body height Body mass index (BMI) Body weight Heart rate Oxygen saturation Oxygen saturation in Arterial blood by Pulse oximetry Systolic blood pressure Diastolic blood pressure Provider Name and Address Organization Details Last Updated DateTime 4 154.31 cm 37.7 kg/m2 29935.2 9 g 74 /min 96 % 96 % 112 mm[Hg] 74 mm[Hg] Karen Clifton MA [facility] 4 08:13:47 Social History Question Answer Notes LastModified by Organizat ion Details LastModified Time Tobacco Smoking Status Former Smoker quit 03/28/2001, smoked for 6 yrs, smoked 10 cigs or less daily Karen Clifton MA [facility] 04/02/2024 11:38:34 What Is Your Level Of Alcohol Consumption? Occasional 1 Drinks A Night On The Weekends Information not available 05/04/2022 Do You Wear A Helmet When Biking? Yes Information not available 05/22/2015 What Is Your Level Of Caffeine Consumption? Heavy Half Decaf And Reg At Home - 4 Cups Per Day Information not available 05/04/2022 How Much Tobacco Do You Chew? None willam Information not available 11/12/2013 What Type Of Diet Are You Following? REGULAR Latose Intolerant Not A Lot Of Carbs Or Sweets Mostly Veggies, Meat, And Fish Information not available 05/04/2022 Which Illicit Or Recreational Drugs Have You Used? None Information not available 05/22/2015 Do You Or Have You Ever Used E-cigarettes Or Vape? Never Used Electronic Cigarettes Information not available 06/21/2019 Education 4 Year College Information not available 05/22/2015 What Is Your Occupation? [employer] Information not available 05/04/2022 Have There Been Any Changes To Your Family Or Social Situation? No Information not available 04/29/2021 When Did You Quit Smoking? 16+yearssince lastcigarette Information not available 05/04/2022 How Many Days In The Past Year Have You Had A Heavy Drinking Consumption (4+ Female, 5+ Male)? 0 Information not available 05/22/2015 Are There Any Guns Present In Your Home? No [email or web address] Information not available 06/03/2011 Do You Use Insect Repellent Routinely? Yes Information not available 04/29/2021 Live Alone Or With Others? Alone eerickson Information not available 10/03/2011 Does The Patient Have Difficulty Speaking Gibraltarian? No [email or web address] Information not available 06/03/2011 Does The Patient Have Difficulty Reading Gibraltarian? No [email or web address] Information not available 06/03/2011 Patient Has Health Care Proxy Signed And In Chart Yes Information not available 05/22/2015 Marital Status Single [email or web address] Informatio n not available 10/03/2011 Mosquito Repellent Used Routinely No Information not available 06/21/2019 What Was The Date Of Your Most Recent Tobacco Screening? 07/03/2024 [email or web address] Information not available 07/03/2024 How Many Children Do You Have? 0 Information not available 05/22/2015 What Is Your Relationship Status? Single Information not available 04/29/2021 Do You Use Your Seat Belt Or Car Seat Routinely? Yes Information not available 04/29/2021 Seat Belts Used Routinely Yes [email or web address] Information not available 06/03/2011 Smoke Alarm In Home Yes [email or web address] Information not available 06/03/2011 Do You Have Smoke And Carbon Monoxide Detectors In Your Home? Yes Information not available 04/29/2021 At What Age Did You Start Smoking Tobacco? 21 [email or web address] Information not available 11/12/2013 Are You Passively Exposed To Smoke? No Information not available 04/29/2021 Do You Or Have You Ever Used Smokeless Tobacco? Never Used Smokeless Tobacco Information not available 06/21/2019 How Much Tobacco Do You Smoke? No Information not available 06/21/2019 What Types Of Sporting Activities Do You Participate In? None Information not available 05/22/2015 General Stress Level Medium Information not available 06/21/2019 Do You Use Any Illicit Or Recreational Drugs? No Information not available 05/04/2022 Do You Use Sunscreen Routinely? Yes [email or web address] Information not available 06/03/2011 How Many Years Have You Smoked Tobacco? 6 Information not available 06/21/2019 Do You Or Have You Ever Used Any Other Forms Of Tobacco Or Nicotine? No [email or web address] Information not available 04/02/2024 Sex: Female Functional Status Question Answer Note LastModified by Organizat ion Details LastModified Time What is your exercise level? Occasional Information not available 05/04/2022 Mental Status None recorded. Family History Relationship Description Onset Age of this Age Resolved Age Notes LastModified by Organization Details LastModified Time Mother Malignant neoplastic disease 86 88 pancre atic slevking Not available 05/06/2023 11:47:13 Brother Diabetes mellitus 60 hx hard drugs slevking Not available 05/06/2023 11:48:23 Brother Cerebrovascu lar accident 56 Germán: Factor II mutati on P slevking Not available 04/02/2024 12:05:01 Brother Carotid artery stenosis Sam, smoker slevking Not available 05/06/2023 11:51:15 Brother Essential hypertension eerickson Not available 11/2014 09:51:25 Brother Unrelated physic clara eerickson Not available 05/22/2015 09:51:25 Brother Myocardial infarction 48 Riley : artist LCA, ? factor II slevking Not available 05/06/2023 11:50:28 Brother Hypertensive disorder slevking Not available 2022 11:48:44 Brother Hyperlipidem ia slevking Not available 2022 11:48:53 Brother Hyperlipidem ia slevking Not available 2022 11:48:58 Brother Diabetes mellitus slevking Not available 2022 11:51:35 Brother Obstructive sleep apnea syndrome and DM slevking Not available 2023 12:04:31 Brother Malignant tumor of prostate Germán slevking Not available 2023 12:05:10 Father Cerebrovascu lar accident 52 52 Factor II mutati on P slevking Not available 05/06/2023 11:49:20 Brother Essential hypertension eerickson Not available 11/2014 09:51:25 Brother Hyperlipidem ia eerickson Not available 2014 09:51:25 Brother Essential hypertension eerickson Not available 11/2014 09:51:25 Sister Hyperlipidem ia eerickson Not available 2014 09:51:25 Sister Retinal detachment eerickson Not available 05/22 09:51:25 Sister Rheumatoid arthritis slevking Not available 2022 11:48:07 Sister Essential hypertension slevking Not available 11:50:48 Notes:3 girls, 4 boys sibs N o breast or colon ca Medical History Condition Response INFECTIOUS DISEASE GASTROINTESTINAL Y psoriasis Y RHEUMATOLOGIC Y Gynecological History Statement/Question Response Frequency of Cycle (Q days) 28 Date of LMP 03/01/2015 Menses Monthly N Hysterectomy N Current Control Method Menopause Age at Menarche 9 Obstetrics History GPAL:G 1 P 0 0 1 0 Type Value Ectopics 1 Total 1 Immunizations Vaccine Type Date Status Note Provider Nam e and Address Organization Details Recorded Time Td(adult) unspecified formulation 3 completed Not Available [facility] 10/06/2022 05:45:33 Influenza, split virus, trivalent, preservative 1 completed Not Available [facility] 08/04/2019 02:18:13 influenza, unspecified formulation 7 completed Not Available [facility] 10/06/2022 05:45:33 influenza, unspecified formulation 8 completed Not Available [facility] 10/06/2022 05:45:33 Influenza, split virus, trivalent, preservative 2 completed Not Available [facility] 08/04/2019 02:18:35 Influenza, split virus, trivalent, preservative 9 completed Not Available [facility] 08/04/2019 02:17:26 Influenza, split virus, trivalent, PF 3 completed Not Available [facility] 08/04/2019 02:28:18 Influenza, split virus, quadrivalent, PF 4 completed Not Available [facility] 08/04/2019 02:19:21 Influenza, split virus, quadrivalent, PF 5 completed Not Available [facility] 08/04/2019 02:29:50 pneumococcal polysaccharide PPV23 5 completed Not Available [facility] 08/04/2019 02:32:26 Influenza, split virus, quadrivalent, PF 6 completed Not Available [facility] 08/04/2019 02:25:33 Influenza, split virus, quadrivalent, PF 7 completed Not Available [facility] 08/04/2019 02:33:01 Influenza, split virus, quadrivalent, PF 8 completed Not Available [facility] 08/04/2019 02:29:52 Influenza, split virus, quadrivalent, PF 9 completed Not Available [facility] 08/04/2019 02:33:36 Influenza, split virus, quadrivalent, PF 0 completed Anne Rizzo LPN null, [facility] 04/16/2020 09:58:41 Pneumococcal conjugate PCV 13 1 completed Sienna Edmonds LPN null, [facility] 01/28/2021 15:21:42 Influenza, split virus, quadrivalent, PF 1 completed Payton Best D.O. [address] [place] [address], [phone], [facility] 04/29/2021 08:24:54 Tdap 1 completed Payton Best D.O. [address] [place] [address], [phone], [facility] 04/29/2021 08:24:54 MMR 1 completed Escobar Gomez RN null, [facility] 07/06/2021 10:49:54 Influenza, split virus, quadrivalent, PF 2 completed JONH Sainz [address] [place] [address], [phone], [facility] 05/04/2022 13:36:41 Influenza, split virus, trivalent, preservative 0 completed Not Available [facility] 08/04/2019 02:32:23 Tdap 0 completed Not Available [facility] 08/04/2019 02:24:39 COVID-19, mRNA, LNP-S, PF, 100 mcg/0.5mL dose or 50 mcg/0.25mL dose 1 completed Not Available [facility] 10/06/2022 05:45:33 COVID-19, mRNA, LNP-S, PF, 100 mcg/0.5mL dose or 50 mcg/0.25mL dose 1 completed Not Available [facility] 10/06/2022 05:45:33 Influenza, split virus, trivalent, PF 4 completed NISHA Jara, SALESMAN/OWNER [address] [place] [address], [phone], [facility] 04/02/2024 11:55:39 Hep B, unspecified formulation 2 completed Not Available [facility] 10/06/2022 05:45:33 Hep B, unspecified formulation 2 completed Not Available [facility] 10/06/2022 05:45:33 Hep B, unspecified formulation 2 completed Not Available [facility] 10/06/2022 05:45:33 DTP 4 completed Not Available [facility] 10/06/2022 05:45:33 DTP 5 completed Not Available [facility] 10/06/2022 05:45:33 DTP 5 completed Not Available [facility] 10/06/2022 05:45:33 DTP 6 completed Not Available [facility] 10/06/2022 05:45:33 DTP 8 completed Not Available [facility] 10/06/2022 05:45:33 vaccinia (smallpox) 6 completed Not Available [facility] 10/06/2022 05:45:33 measles 8 completed Not Available [facility] 10/06/2022 05:45:33 rubella 8 completed Not Available [facility] 10/06/2022 05:45:33 mumps 1 completed Not Available [facility] 10/06/2022 05:45:33 polio, unspecified formulation 3 completed Not Available [facility] 10/06/2022 05:45:33 polio, unspecified formulation 4 completed Not Available [facility] 10/06/2022 05:45:33 polio, unspecified formulation 5 completed Not Available [facility] 10/06/2022 05:45:33 polio, unspecified formulation 6 completed Not Available [facility] 10/06/2022 05:45:33 polio, unspecified formulation 7 completed Not Available [facility] 10/06/2022 05:45:33 polio, unspecified formulation 8 completed Not Available [facility] 10/06/2022 05:45:33 polio, unspecified formulation 3 completed Not Available [facility] 10/06/2022 05:45:33 COVID-19, mRNA, LNP-S, PF, 100 mcg/0.5mL dose or 50 mcg/0.25mL dose 1 completed Not Available [facility] 10/06/2022 05:45:33 COVID-19, mRNA, LNP-S, PF, 100 mcg/0.5mL dose or 50 mcg/0.25mL dose 2 completed Not Available [facility] 10/06/2022 05:45:33 SARS-COV-2 (COVID-19) vaccine, UNSPECIFIED 3 completed SHERLYN Calderón [facility] 04/20/2023 08:32:26 influenza, unspecified formulation 3 completed SHERLYN Calderón [facility] 04/20/2023 08:33:12 zoster recombinant 3 completed IGLESIA Still [facility] 07/03/2024 09:01:14 zoster recombinant 4 completed IGLESIA Still [facility] 07/03/2024 09:01:29 Past Encounters Encounter ID Performer Location Encounter Start Date Encounter Closed Date Diagnosis/Indication Diagnosis SNOMED-CT Code Diagnosis ICD10 Code Diagnosis Note [id number] NISHA Jara, NUVIA , [facility], OFF[address] [facility] [place] [address] 07/03/2024 08:02:01 07/03/2024 09:17:58 Blepharitis 65584504 H01.009 Of right eye as dx by ophtho, improved with drops Essential hypertension 39182895 I10 BP at goal of <130/80. 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 Will take an aspirin before long drives or flight Impaired f asting glycemia 883844510 R73.01 Labs 06/2024: A1C 6.0%, decreased from prior. FBG 98Congratu lated on improvemen t!Did not tolerate metformin in the past due to GI SE.? related to ETOH use, which occurs more with higher stress levels. Feels she is in a better place now Large tonsils 484069027 J35.1 Has seen ENT, was told she is fineDiagno sed with ADRIANNA as below Low back pain 046761219 M54.50 Improving with monthly chiro and massageNot ices by the end of her twice daily walks with her dog, can walk through the pain but feels the sorenessTa lor 2 tabs aleve BID along with Otezla per rheum. Reports pain was well managed with sulfasalaz ine in the pastAlso taking turmeric supplement s nowContinu e working with chiro and massage Moderate r ecurrent major depression 71796190 F33.1 Stable.Mil d recurrent depression with likely SAD. Continues on low-dose sertraline 12.5mg with good effect, still feels like this is helpful.Re inforced we are here to support Obstructiv e sleep apnea syndrome 43600437 G47.33 Per sleep study 11/2023 ordered by sleep med.Now using CPAP, settings recently titrated Psoriatic arthritis 1563 [address] Catalan at [facility] Rheumatolo gyChristiano, continues on Otezla with ? benefit, needs. Reports that even taking once/day is better than being off entirely.E SR and CRP remain elevated, requesetin g to recheck since not done - add on labs requested Humira ineffectiv e so this was stopped. Intolerant of oral steroids - resulted in hallucinat ions.Back pain has persisted despite taking 2 aleve BID since December per rheum - see above, does have some improvemen t with chiro and massage. Does not want opiates. Consider gabapentin Will discuss sulfasalaz ine with rheum as this was effective in the past. Rosacea 992910257 L71.9 Stable with metronidaz ole Screening for malignant neoplasm of cervix 217257514 Z12.4 Screening mammography 24 125710 Z12.31 Health Concerns Section Related Observation LastModified by Organization Detai ls LastModified Time None Recorded Concern Status LastModified by Organization Details LastModified Time None Recorded Payers Encounter Date Sequence Insurance Name Policy Number Policy Garcia Covered Member ID Garcia Member ID Guarantor Name 07/03/2024 1 [facility] [employer] (POS) Chelly Morales [id number] Chelly Morales Notes Date Note Type Note Provider Name and Address Organization Details Recorded Time 07/03/2024 text/html Here for MM CPAP is working well, settings recently titrated Work has been stressful, has 2-3 years left [place] visit her [place] for a few weeks. Since getting her puppy over 1 year ago, has been walking 2-3 times/day, is moving much more NISHA Jara, NUVIA [address] [place] [address], [place], [phone], [facility] 07/03/2024 08:43:26 OBGyn Episode No OBEpisode recorded.
== END 2024-07-24 08:56 | disposition home or self-care (01) ==
PROVIDERS: PCP Nurse Practitioner Family; Visit Provider Student in an Organized Health Care Education/Training Program
DX: L40.50 Arthropathic psoriasis, unspecified (principal); R79.82 Elevated C-reactive protein (CRP)
CPT/HCPCS: 99214

== ENCOUNTER 2025-01-29 14:59 | Outpatient (AMB) | payer OTHER, SELFPAY ==
[2025-01-29 15:06] VITALS: BP 118/80; PULSE 80; O2SAT 95; BMI 39.0
--- NOTE | 2025-01-29 15:06 | A.OFFVIS_ITS ---
Vital Signs 01/29/25 15:06 Height 5 ft 0.5 in Weight 203 lb BMI 39.0 BP 118/80 Blood Pressure Location Lt brachial Position Sitting Pulse 80 Pulse Source Pulse Oximeter Pulse Oximetry (%) 95 Oxygen Delivery Method Room Air Intake Visit Reasons: PsA/ins ref required Intake Note: Patient presents for follow up on PSA today. Patient would like to come off Otezla. Allergies Corticosteroids (Glucocorticoids) Adverse Reaction (Unknown, Verified 01/29/25 15:12) Hallucinations fluoxetine Adverse Reaction (Unknown, Verified 01/29/25 15:12) Rash metformin Adverse Reaction (Verified 01/29/25 15:12) Abdominal Pain Medication List - Last Reconciled 01/29/25 by Chastity Joseph MD cetirizine (Zyrtec) 10 mg PO DAILY PRN CPAP (CPAP Machine/Device) As directed cyclobenzaprine 5 mg PO BEDTIME diclofenac sodium 1% 1 - 2 grams topical QID PRN fluoride (sodium) 1.1% PO DAILY fluticasone propionate 50 mcg/actuation 1 spray intranasal DAILY [forte turmeric PO] lisinopril 2.5 mg PO DAILY sertraline 12.5 mg PO DAILY HPI Comments Details: Patient is a 59-year-old female with allergies, hypertension, depression, psoriasis complicated by psoriatic arthritis here today for follow up Interval History: Patient last seen 07/24/[address] Arnold. At that time she was following up for her psoriatic arthritis and psoriasis. On Otezla 30 mg twice a day. She is doing better after taking Aleve twice a day. Today, - does not feel the otezla is working - Wants to stop otezla and go back on sulfasalazine - Body hurts all over - low back pain. cannot sit for any period of time. Did XRs at [facility] that shows degenerative changes. - bilateral knee pain. danilo at night. walking down the stairs. Stiffness about 5 - 10 mins - Hands. Making a fist is sore in the knuckles Rheumatologic History: PsO/PsA dx 2006 SSZ 2011 effective- until 2019. Medication was no longer available during the pandemic Humira 2019 ineffective Otezla 2021 very effective Current Rheumatology Medication(s): Otezla 30mg bid [facility] Medical History ADRIANNA (obstructive sleep apnea) Rheumatic fever Factor II deficiency Osteitis Microscopic colitis Rosacea Major depressive disorder Essential hypertension Low back pain GERD (gastroesophageal reflux disease) Degenerative joint disease of hand Lactose intolerance Pain in joint, multiple sites Psoriatic arthritis Surgical History S/P ectopic Family History Mother Pancreatic cancer, Onset Age: 86 Brother Type 2 diabetes mellitus, Onset Age: 60 History of substance abuse Sister Hypertension Hyperlipidemia Arthritis Brother Stroke, Onset Age: 56 Essential hypertension Mixed hyperlipidemia Prostate cancer Father Stroke Brother Myocardial infarction Social History Alcohol intake: current Alcohol intake frequency: a few times a month Patient Tobacco Use Status: Former Tobacco user Cigarettes Per Day: 10 Years Smoked: 6 Review of Systems Const Details: Review of Systems Constitutional: Denies fever, chills, weight loss ENT: Denies vision changes, eye pain or eye redness, dental caries, dry mouth GI: Denies nausea, vomiting, diarrhea, abdominal pain, change in BM Pulm: Denies SOB, MOTA, hemoptysis, wheezing Cards: Denies chest pain, palpitations Skin: Denies Raynaud's, rash, nail changes, photosensitivity, [employer] SPECIAL EFFECTS: Denies headaches, weakness, paresthesias, recurrent falls MSK: as per HPI All other systems reviewed and are unremarkable except noted above Physical Exam Vital Signs: Last Vital Signs Pulse 80 01/29/25 15:06 BP 118/80 01/29/25 15:06 Pulse Ox 95 01/29/25 15:06 Oxygen Delivery Method Room Air 01/29/25 15:06 BMI result Body Mass Index 39.0 Vital signs reviewed Physical Examination CONSTITUITIONAL Patient alert and cooperative. Well appearing and in no apparent painful distress HEENT Conjunctiva and sclera clear. No lymphadenopathy. CHEST/RESPIRATORY SYSTEM Normal respiratory effort and able to speak in complete sentences. Clear to auscultation bilaterally. No crackles, rales, rhonchi, wheezes heard. CARDIAC SYSTEM Regular rate and rhythm. S1 and S2 heard no murmurs. Radial pulses intact bilaterally MSK Hands * Right Hand: Able to make a fist. No swelling or tenderness to palpation of these joints. Thumb unable to bend due to previous injury * Left Hand: Able to make a fist. No swelling or tenderness to palpation of these joints. * Herbedens nodes noted bilaterally Wrists * Right Wrist: Full ROM. 70 degrees of wrist flexion, 80 degrees of wrist extension. No swelling or TTP * Left Wrist: Full ROM. 70 degrees of wrist flexion, 80 degrees of wrist extension. No swelling or TTP Elbows * Right Elbow: Full ROM. No swelling or TTP. No TTP of the medial and lateral epicondyles * Left Elbow: Full ROM. No swelling or TTP. No TTP of the medial and lateral epicondyles Shoulders * Right shoulder: Full ROM. No swelling noted. No TTP subacromial bursa or posterior shoulder. * Left shoulder: Full ROM. No swelling noted. No TTP subacromial bursa or posterior shoulder. * TTP bilateral AC joint Knees * Right knee: Full ROM. No swelling noted. No TTP of the knee joint lie or pes anserine bursa * Left knee: Full ROM. No swelling noted. No TTP of the knee joint lie or pes anserine bursa. * Crepitations felt bilaterally Ankles * Right ankle: Good ankle dorsiflexion and plantar flexion. No swelling. No TTP of the ankle joint * Left ankle: Good ankle dorsiflexion and plantar flexion. No swelling. No TTP of the ankle joint Feet * Right foot: Negative squeeze test * Left foot: Negative squeeze test Tender points? * No tenderness to palpation of the bilateral trapezius, supraspinatus, anterior costochondral junctions, bilateral suboccipital muscle insertions SKIN small PsO plaques to elbows bilaterally Results Reviewed Results Reviewed: Labs from 06/2024 reviewed Assessment & Plan Assessment & Plan (1) Psoriatic arthritis: Comment: dx 2006 SSZ 2011 effective- until 2019. Medication was no longer available during the pandemic Humira 2019 ineffective Otezla 2021 very effective Code(s): L40.50 - Arthropathic psoriasis, unspecified Category: Medical Plan: #PsO/PsA Patient is a 59-year-old female with psoriasis complicated by psoriatic arthritis here today for follow up. No evidence of active synovitis on examination today. Patient would like to stop her Otezla and I am okay with that. Discussed warning signs or concerning symptoms that patient should look out for. Plan - Stop Otezla - RTC 6 months (2) Polyarticular osteoarthritis: Code(s): M15.9 - Polyosteoarthritis, unspecified Plan: #Polyarticular OA No evidence of synovitis on examination today. Her complaints are likely related to polyarticular osteoarthritis. Back pain - I discussed potentially going to pain management however patient wo uld like to try doing physical therapy. She states that when she is able to use her pool and do more consistent exercises the pain is better and so she thinks physical therapy might be helpful. Knee pain - recommending topical diclofenac. Also discussed injections including steroid, Toradol and gel injections Hands - also recommended topical diclofenac. Plan I spent 30 minutes reviewing the record and labs, taking a history, examining the patient, discussing the treatment plan, ordering diagnostic work up and documenting in the medical record Medications: New diclofenac sodium 1% (Arthritis Pain (diclofenac)) apply to bilateral knees and hands 4 times a day 4 grams topical QID 100 grams 4RF M15.9 - Polyosteoarthritis, unspecified diclofenac sodium 1% (Arthritis Pain (diclofenac)) apply to bilateral knees and hands 4 times a day 4 grams topical QID 100 grams 4RF M15.9 - Polyosteoarthritis, unspecified Coding Level of Care Code Est Pt Level 4 (99337) Complex EM visit Add On G2211 Diagnoses Psoriatic arthritis L40.50 Polyarticular osteoarthritis M15.9
--- OUTSIDE RECORDS SUMMARY | 2025-01-29 16:18 | XMS_ITS | Data Portability ---
Author Organization [facility], [facility] Address [address] [place] [address] Care Team Providers Care Senior Gl Accountant Name Role Phone KEVIN SALINAS Surgical Scrub Technician RAFIQ FLOOD Orthopedic Surgeon [phone] BALTA DOW Primary Care Provider SIVAN CATALAN Surgical Scrub Technician Assessment Encounter Date Assessment Date Assessment LastModified by Organization Details LastModified Time 11/02/2022 11/02/2022 The care for this patient today involved the following: I have reviewed, collected, and updated relevant history and performed a physical exam. An independent historian was used to obtain history N. My assessment of Social Determinants of health: not at risk. My care of this patient involved: Moderate assessment of problems. Moderate review of data. Moderate complexity of risk from disease or treatments. Below is my assessment and plan for this patient s care today. Not available 11/02/2022 08:54:50 04/02/2024 04/02/2024 F/u in 3 months with PAP Total of 34 min spent in prep, OV and documentation time [email or web address] Not available 04/02/2024 12:21:12 07/03/2024 07/03/2024 F/u in 6 months as scheduled and via portal [email or web address] Not available 07/03/2024 08:41:21 Plan of Treatment Reminders Order Date Submit Date Provider Last Modified By Organization Details Last Modified Time Details Appointments LAB Follow-U p 2024 08:00A [facility] Lab Not available Not available Not available Medical Manageme nt 30 2024 11:30A M BALTA Dow, PATHOLOGIST ASSISTANT Not available Not available Not available LAB Follow-U p 2025 08:00A [facility] Lab Not available Not available Not available Wellness Visit 30 2025 09:00A M BALTA Dow, PATHOLOGIST ASSISTANT Not available Not available Not available Lab fecal occult blood, immunoas say, stool 2024 025 [facility], [address] [place] [address], [id number], 01/03/2025 16:31:09 HbA1c (hemoglo bin A1c), blood 2023 025 [facility], [address] [place] [address], [id number], 01/02/2025 10:28:53 ESR (erythro cyte sediment ation rate), blood 2023 024 [facility], [address] [place] [address], [id number], 12/28/2024 11:37:00 C-reacti ve protein, quantita tive, serum or plasma 2023 024 [email or web address], [address] [place] [address], [address], 07/12/2024 11:43:37 pap, IG - 30-65+ years old 2023 024 [facility], [address] [place] [address], [address], 07/06/2024 14:27:42 HPV E6+E7 mRNA, qualitat damir PCR, cervix 2023 024 [facility], [address] [place] [address], [address], 07/06/2024 07:59:39 HbA1c (hemoglo bin A1c), blood 2023 024 [facility], [address] [place] [address], [address], 06/29/2024 14:40:39 HbA1c (hemoglo bin A1c), blood 2022 023 [facility], [address] [facility], [place], [address], 10/28/2023 11:10:13 Referral sports medicine referral - Please evaluate and treat non radiatin g low back pain, worsenin g, hx multiple injuries and arthriti s 2024 025 [email or web address] [facility], [address] [place], [address], 01/14/2025 13:33:46 sleep medicine referral - 3+ tonsils florina olivas, reports since roma nogueira Unsure if she snores, has been advised sleep study 2022 023 [facility], [address] [place], [address], 10/18/2023 10:59:51 breast surgery referral 2022 023 [email or web address] [address] Jerald Manzano MD, [address] [place] [address], [address], 12/02/2022 10:22:24 Procedures None recorded . Surgeries None recorded . Imaging XR, lumbar spine - long standing chronic back pain 2024 025 [facility] (Imaging), [address], [place], [address], 01/12/2025 19:18:37 MAMMO, screenin g, tomosynt hesis, bilatera l - 2nd Look Consult/ Diag Mammo/US Breast/G uided Asp/Tegan st Bx/Clip Placelavell t, as clinical ly indicate d. 2023 024 [facility] ([facility]), [address], [place], [address], 09/03/2024 11:27:56 electroc ardiogra m [email or web address], [address] [place], [address], 05/06/2023 12:36:38 Medication Orders cycloben zaprine 5 mg tablet 2024 025 [facility] #1094, [address] [place] [address], [address], 01/01/2025 14:59:26 lisinopr il 2.5 mg tablet 2023 024 [facility], [address] [place] [address], [address], 07/03/2024 08:23:42 sertrali ne 25 mg tablet 2023 024 [facility], [address] [place] [address], [address], 04/02/2024 12:15:39 metronid azole 0.75 % topical gel 2023 024 [facility]1094, [address] [place] [address], [address], 04/02/2024 12:15:39 lisinopr il 5 mg tablet 2023 [facility] [address] [place] [address], [address], 07/03/2024 08:18:55 hydrochl orothiaz marina 12.5 mg tablet 2023 025 [facility], [address] [place] [address], [address], 01/01/2025 14:46:39 Otezla 30 mg tablet 2022 023 [facility], [address] [place] [address], [address], 11/02/2022 08:45:35 Patient TargetsNo targets recorded. Patient Instructions Encounter Date Encounter Id Patient Instructions Last Modified By Organization Details Last Modified Time 11/02/2022 [id number] - Per our discussion you have agreed with the above assessment/plan as stated. - Please follow-up with our office as recommended and perform lab work/imaging/refer ral if indicated. - You can follow-up with our office sooner for any acute concern at [phone]. - If unable to reach our practice and you are in need of immediate care do not hesitate to seek immediate medical attention by calling 911 or going to the ER/Urgent care. [email or web address] Not available 11/02/2022 08:33:29 You have chronic hypertension that is controlled. Your blood pressure is at goal <130/80. Continue current medication(s). Follow up for blood pressure check in 6 months with labs. Please limit your intake of salt to 1500 mg daily, dairy products, processed foods, alcohol, and caffeine. Read labels. Increase vegetables and fruits (high fiber). Please try to participate in 30 minutes of activity daily. Please try to maintain a healthy weight. Check your blood pressure at least 1-2 times each month at approximately the same time of day with 10-15 minutes of quiet rest prior to taking blood pressure. Make sure that your feet are flat on the floor and back upright resting on chair. Empty your bladder before taking your blood pressure. Please update us if your home blood pressures are not at goal. Call with any concerns or questions. Not available 11/02/2022 08:33:38 05/06/2023 [id number] well visit, wome n 50 to 65: care instructions [email or web address] Not available 05/06/2023 12:11:47 Reason for Referral Breast Surgery Referral for Backache chronic upper back pain related to breast size, interested in breast reduction surgery Referring Physician: Chrissy Nguyen, Family Medicine, Encounter Date: 11/02/2022 Sleep Medicine Referral for Large tonsils 3+ tonsils bilaterally, reports since childhood. Unsure if she snores, has been advised sleep study Referring Physician: Balta Dow, Family Medicine, Encounter Date: 05/06/2023 Please evaluate and treat no n radiating low back pain, worsening, hx multiple injuries and arthritis Referring Physician: Balta Dow Family Medicine, Encounter Date: 01/01/2025 Results Created Date Observation Date Name Description Value Unit Range Abnormal Flag Note LastModifiedBy Organization Detail LastModifiedTime 10/29/1910/28/2022 ESR sed rate 32.0 0.0-15 .0 high Not Available [address], [address], 10/28/2022 11:58:42 10/29/1910/28/2022 HGB A1C hemoglobin A1C 6.1 % 4.8-6. 0 high Goal: <7% in Patie nts with Diabe britton An A1c betwe en 5.7-6 .4% is ident ified as pre-d iabet es and sugge sts risk for progr essio n to diabe britton Two a1c value s of 6.5% or highe r is consi stent with a diagn osis of diabe britton but may need furth er confi rmati on Not Available [address], [address], 10/28/2022 12:48:49 10/29/1910/28/2022 HGB A1C estimated average glucose 128.4 mg/dL Not Available [address], [address], 10/28/2022 12:48:49 10/29/1910/28/2022 BASIC METAB OLIC PANEL glucose 101 mg/dL 70-100 high Not Available [address], [address], 10/28/2022 14:27:06 10/29/1910/28/2022 BASIC METAB OLIC PANEL BUN 18 mg/dL 7-18 Not Available [address], [address], 10/28/2022 14:27:06 10/29/1910/28/2022 BASIC METAB OLIC PANEL creatinine 0.8 mg/dL 0.8-1. 3 Not Available [address], [address], 10/28/2022 14:27:06 10/29/19 23 10/28/2022 BASIC METAB OLIC PANEL B/C 22.5 ratio Not Available [address], [address], 10/28/2022 14:27:06 10/29/19 23 10/28/2022 BASIC METAB OLIC PANEL GFR >=60ML /MIN mL/mi n normal >=60m L/min - Lilly l or midly reduc ed <60mL /min- Decre ased kidne y funct ion <15mL /min - Kidne y failu re [facility] calcu lates estim ated Glome rular Filtr ation Rate (eGFR ) using the Chron ic Kidne y Disea se Epide miolo gy Colla borat ion (CKD- EPI) Equat ion (Jaylen r et. al 2020) as recom jaylen d by the Natio nal Kidne y Found ation . eGFR is based on age, serum creat inine , and sex. CKD-E PI does not calcu late eGFR by race, does not apply to child rodrigue (age <18 years ), and shoul d not be used in pregn cindy. Not Available [address], [address], 10/28/2022 14:27:06 10/29/19 23 10/28/2022 BASIC METAB OLIC PANEL sodium 143 mmol/ L 136-14 5 Not Available [address], [address], 10/28/2022 14:27:06 10/29/19 23 10/28/2022 BASIC METAB OLIC PANEL potassium 4.5 mmol/ L 3.5-5. 1 Not Available [address], [address], 10/28/2022 14:27:06 10/29/19 23 10/28/2022 BASIC METAB OLIC PANEL chloride 106 mmol/ L 96-107 Not Available [address], [address], 10/28/2022 14:27:06 10/29/19 23 10/28/2022 BASIC METAB OLIC PANEL anion gap 8.9 5.0-15 .0 Not Available [address], [address], 10/28/2022 14:27:06 10/29/19 23 10/28/2022 BASIC METAB OLIC PANEL CO2 28 mmol/ L 21-32 Not Available [address], [address], 10/28/2022 14:27:06 10/29/19 23 10/28/2022 BASIC METAB OLIC PANEL calcium 9.0 mg/dL 8.5-10 .3 Not Available [address], [address], 10/28/2022 14:27:06 10/29/19 23 10/28/2022 C-KERON CTIVE PROTE IN-QU ANTIT ATIVE C-reactive protein -quant 11.9 mg/L 0.0-9. 0 high Not Available [address], [address], 10/28/2022 14:27:07 04/29/2004/29/2023 CBC WBC 9.19 K/ L 3.98-1 0.04 Not Available [address], [address], 04/29/2023 11:18:18 04/29/20 23 04/29/2023 CBC RBC 4.62 M/ L 3.93-5 .22 Not Available [address], [address], 04/29/2023 11:18:18 04/29/20 23 04/29/2023 CBC HGB 13.7 g/dL 11.2-1 5.7 Not Available [address], [address], 04/29/2023 11:18:18 04/29/20 23 04/29/2023 CBC HCT 42.3 % 34.1-4 4.9 Not Available [address], [address], 04/29/2023 11:18:18 04/29/2004/29/2023 CBC MCV 91.6 fL 79.4-9 4.8 Not Available [address], [address], 04/29/2023 11:18:18 04/29/2004/29/2023 CBC MCH 29.7 pg 25.6-3 2.2 Not Available [address], [address], 04/29/2023 11:18:18 04/29/2004/29/2023 CBC MCHC 32.4 g/dL 32.2-3 5.5 Not Available [address], [address], 04/29/2023 11:18:18 04/29/2004/29/2023 CBC plt 354 K/ L 182-36 9 Not Available [address], [address], 04/29/2023 11:18:18 04/29/2004/29/2023 CBC MPV 10.5 fL 9.4-12 .3 Not Available [address], [address], 04/29/2023 11:18:18 04/29/2004/29/2023 CBC neut% 69.7 % 34.0-7 1.1 Not Available [address], [address], 04/29/2023 11:18:18 04/29/2004/29/2023 CBC neut# 6.39 1.56-6 .13 high Not Available [address], [address], 04/29/2023 11:18:18 04/29/20 23 04/29/2023 CBC lymph % 19.9 % 19.3-5 1.7 Not Available [address], [address], 04/29/2023 11:18:18 04/29/20 23 04/29/2023 CBC lymph # 1.83 K/ L 1.18-3 .74 Not Available [address], [address], 04/29/2023 11:18:18 04/29/20 23 04/29/2023 CBC mono% 6.6 % 4.7-12 .5 Not Available [address], [address], 04/29/2023 11:18:18 04/29/20 23 04/29/2023 CBC mono# 0.61 0.24-0 .56 high Not Available [address], [address], 04/29/2023 11:18:18 04/29/20 23 04/29/2023 CBC eo% 2.9 % 0.7-5. 8 Not Available [address], [address], 04/29/2023 11:18:18 04/29/20 23 04/29/2023 CBC eo# 0.27 0.04-0 .36 Not Available [address], [address], 04/29/2023 11:18:18 04/29/20 23 04/29/2023 CBC baso% 0.4 % 0.1-1. 2 Not Available [address], [address], 04/29/2023 11:18:18 04/29/20 23 04/29/2023 CBC baso# 0.04 0.00-0 .08 Not Available [address], [address], 04/29/2023 11:18:18 04/29/20 23 04/29/2023 CBC RDW-CV 13.2 % 11.7-1 4.4 Not Available [address], [address], 04/29/2023 11:18:18 04/29/20 23 04/29/2023 CBC Ig% 0.500 % 0.000- 1.500 Ig % >0.5 Indic ates possi ble Left Shift Not Available [address], [address], 04/29/2023 11:18:18 04/29/2004/29/2023 CBC Ig# 0.050 0.000- 0.093 Not Available [address], [address], 04/29/2023 11:18:18 04/29/2004/29/2023 CBC NRBC% 0.0 % 0.0-0. 2 Not Available [address], [address], 04/29/2023 11:18:18 04/29/2004/29/2023 CBC NRBC# 0.000 0.000- 0.012 Not Available [address], [address], 04/29/2023 11:18:18 04/29/2004/29/2023 COMP. METAB OLIC PANEL glucose 100 mg/dL 70-100 Not Available [address], [address], 04/29/2023 11:22:37 04/29/2004/29/2023 COMP. METAB OLIC PANEL BUN 16 mg/dL 7-18 Not Available [address], [address], 04/29/2023 11:22:37 04/29/20 23 04/29/2023 COMP. METAB OLIC PANEL creatinine 0.8 mg/dL 0.8-1. 3 Not Available [address], [address], 04/29/2023 11:22:37 04/29/2004/29/2023 COMP. METAB OLIC PANEL B/C 20.0 ratio Not Available [address], [address], 04/29/2023 11:22:37 04/29/2004/29/2023 COMP. METAB OLIC PANEL GFR >=60ML /MIN mL/mi n normal >=60m L/min - Lilly l or midly reduc ed <60mL /min- Decre ased kidne y funct ion <15mL /min - Kidne y failu re [facility] y [facility] al [facility] calcu lates estim ated Glome rular Filtr ation Rate (eGFR ) using the Chron ic Kidne y Disea se Epide miolo gy Colla borat ion (CKD- EPI) Equat ion (Jaylen r et. al 2020) as recom jaylen d by the Natio nal Kidne y Found ation . eGFR is based on age, serum creat inine , and sex. CKD-E PI does not calcu late eGFR by race, does not apply to child rodrgiue (age <18 years ), and shoul d not be used in pregn cindy. Not Available [address], [address], 04/29/2023 11:22:37 04/29/20 23 04/29/2023 COMP. METAB OLIC PANEL sodium 139 mmol/ L 136-14 5 Not Available [address], [address], 04/29/2023 11:22:37 04/29/20 23 04/29/2023 COMP. METAB OLIC PANEL potassium 4.1 mmol/ L 3.5-5. 1 Not Available [address], [address], 04/29/2023 11:22:37 04/29/20 23 04/29/2023 COMP. METAB OLIC PANEL chloride 102 mmol/ L 96-107 Not Available [address], [address], 04/29/2023 11:22:37 04/29/20 23 04/29/2023 COMP. METAB OLIC PANEL anion gap 9.2 5.0-15 .0 Not Available [address], [address], 04/29/2023 11:22:37 04/29/20 23 04/29/2023 COMP. METAB OLIC PANEL CO2 28 mmol/ L 21-32 Not Available [address], [address], 04/29/2023 11:22:37 04/29/20 23 04/29/2023 COMP. METAB OLIC PANEL calcium 9.4 mg/dL 8.5-10 .3 Not Available [address], [address], 04/29/2023 11:22:37 04/29/20 23 04/29/2023 COMP. METAB OLIC PANEL total protein 7.3 g/dL 6.4-8. 2 Not Available [address], [address], 04/29/2023 11:22:37 04/29/20 23 04/29/2023 COMP. METAB OLIC PANEL albumin 3.4 g/dL 3.4-5. 0 Not Available [address], [address], 04/29/2023 11:22:37 04/29/20 23 04/29/2023 COMP. METAB OLIC PANEL globulin 3.9 g/dL Not Available [address], [address], 04/29/2023 11:22:37 04/29/20 23 04/29/2023 COMP. METAB OLIC PANEL A/G 0.9 ratio 0.8-2. 0 Not Available [address], [address], 04/29/2023 11:22:37 04/29/2004/29/2023 COMP. METAB OLIC PANEL total bilirubin 0.40 mg/dL 0.00-1 .00 Not Available [address], [address], 04/29/2023 11:22:37 04/29/2004/29/2023 COMP. METAB OLIC PANEL AST 21 U/L 0-37 Not Available [address], [address], 04/29/2023 11:22:37 04/29/2004/29/2023 COMP. METAB OLIC PANEL ALT 30 U/L 6-63 Not Available [address], [address], 04/29/2023 11:22:37 04/29/20 23 04/29/2023 COMP. METAB OLIC PANEL alk. phos. 97 U/L 50-136 Not Available [address], [address], 04/29/2023 11:22:37 04/29/20 23 04/29/2023 C-KERON CTIVE PROTE IN (RCRP ) C-reactive protein (rcrp) 19.7 mg/dL 0.5-9. 0 high Not Available [address], [address], 04/29/2023 11:22:38 04/29/20 23 04/29/2023 LIPID PANEL cholesterol 186 mg/dL <200 mg/dl Pineda able 200-2 39 mg/dl Borde rline High >240 mg/dl High Not Available [address], [address], 04/29/2023 11:27:39 04/29/20 23 04/29/2023 LIPID PANEL triglyceride s 116 mg/dL <150 mg/dL Lilly l 150-1 99 mg/dL Borde rline High 200-4 99 mg/dL High >500 mg/dL Very High Not Available [address], [address], 04/29/2023 11:27:39 04/29/20 23 04/29/2023 LIPID PANEL direct HDL 52 mg/dL <40 mg/dl - Major Risk for CHD >60 mg/dl - Negat damir Risk for CHD Not Available [address], [address], 04/29/2023 11:27:39 04/29/20 23 04/29/2023 LDL - CALCU LATED LDL - calculated 110.8 RISK CATEG ORY LDL GOAL _ CHD or CHD Risk Equiv alent s <100 mg/dl (10-y ear risk >20%) 2+ Risk Facto rs <130 mg/dl (10-y ear risk <= 20%) 0-1 Risk Facto r <160 mg/dl Almo st all peopl e with 0-1 risk facto r have a 10 year risk <10%, thus 10 year risk asses ment in peopl e with 0-1 risk facto r is not neces guera. Not Available [address], [address], 04/29/2023 11:27:40 04/29/2004/29/2023 HGB A1C hemoglobin A1C 6.3 % 4.8-6. 0 high Goal: <7% in Patie nts with Diabe britton An A1c betwe en 5.7-6 .4% is ident ified as pre-d iabet es and sugge sts risk for progr essio n to diabe britton Two a1c value s of 6.5% or highe r is consi stent with a diagn osis of diabe britton but may need furth er confi rmati on Not Available [address], [address], 04/29/2023 11:40:27 04/29/2004/29/2023 HGB A1C estimated average glucose 134.1 mg/dL Not Available [address], [place], [address], 04/29/2023 11:40:27 04/29/2004/30/2023 SED RATE BY MODIF IED WESTE RGREN sed rate by modified westergren 43 mm/h < or = 30 high Not Available [facility] [address], [address], 04/30/2023 03:28:40 04/29/2004/30/2023 HEPAT ITIS PANEL , ACUTE W/REF GIL TO CONFI RMATI ON hepatitis A IgM NON-RE ACTIVE non-re active normal For addit ional infor osmani roger e refer to http: //[employer] catio n.natan stdia gnost ics.c om/fa q/FAQ 202 (This link is being provi ded for infor matio nal/ educa mohini l purpo ses only. ) Not Available [facility] [address], [address], 04/30/2023 03:28:42 04/29/20 23 04/30/2023 HEPAT ITIS PANEL , ACUTE W/REF GIL TO CONFI RMATI ON hepatitis B surface antigen NON-RE ACTIVE non-re active normal For addit ional infor dustin nosmani e refer to http: //edu catio n.natan stdia gnost ics.c om/fa q/FAQ 202 (This link is being provi ded for infor matio nal/ educa mohini l purpo ses only. ) Not Available [facility] [address], [address], 04/30/2023 03:28:42 04/29/20 23 04/30/2023 HEPAT ITIS PANEL , ACUTE W/REF GIL TO CONFI RMATI ON hepatitis B core antibody (IgM) NON-RE ACTIVE non-re active normal For addit ional infor osmani roger e refer to http: //[facility] jemima n.que stdia gnost ics.c om/fa q/FAQ 202 (This link is being provi ded for infor matio nal/ educa mohini l purpo ses only. ) Not Available [facility] [place] [facility] [address], [place], [address], 04/30/2023 03:28:42 04/29/20 23 04/30/2023 HEPAT ITIS PANEL , ACUTE W/REF GIL TO CONFI RMATI ON hepatitis C antibody NON-RE ACTIVE non-re active normal HCV antib mike was non-r eacti ve. There is no labor atory evide nce of HCV infec tion. In most cases , no furth er actio n is requi red. Howev er, if recen t HCV expos ure is suspe cted, a test for HCV RNA (test code 91785 ) is sugge sted. For addit ional infor matevangelista n osmani e refer to http: //[facility] jemima n.que stdia gnost ics.c om/fa q/FAQ 22v1 (This link is being provi ded for infor matio nal/ educa mohini l purpo ses only. ) Not Available [facility] [place] [facility] [address], [place], [address], 04/30/2023 03:28:42 04/29/2005/02/2023 QUANT IFERO N(R)- TB GOLD PLUS, 1 TUBE quantiferon( R)-TB gold plus, 1 tube NEGATI VE negati ve normal Negat damir test resul t. M. tuber culos is compl ex infec tion unlik soni. Not Available [facility] [place] [facility] [address], [place], [address], 05/02/2023 09:02:55 04/29/2005/02/2023 QUANT IFERO N(R)- TB GOLD PLUS, 1 TUBE nil 0.02 IU/mL normal Not Available [facility] [place] [facility] [address], [address], 05/02/2023 09:02:55 04/29/20 23 05/02/2023 QUANT IFERO N(R)- TB GOLD PLUS, 1 TUBE mitogen-nil >10.00 IU/mL normal Not Available [facility] [place] [facility] [address], [address], 05/02/2023 09:02:55 04/29/2005/02/2023 QUANT IFERO N(R)- TB GOLD PLUS, 1 TUBE TB1-nil 0.00 IU/mL normal Not Available [facility] [place] [facility] [address], [address], 05/02/2023 09:02:55 04/29/2005/02/2023 QUANT IFERO N(R)- TB GOLD PLUS, 1 TUBE TB2-nil 0.00 IU/mL normal The Nil tube value refle cts the backg round inter feron gamma immun e respo nse of the patie nt's blood sampl e. This value has been subtr acted from the patie nt's displ ayed TB and Mitog en resul ts. Lower than expec ngoc resul ts with the Mitog en tube preve nt false -nega tive Quant ifero n readi ngs by detec ting a patie nt with a poten tial immun e suppr essiv e condi tion and/o r subop timal pre-a nalyt ical speci men handl ing. The TB1 Antig en tube is coate d with the M. tuber culos is-sp ecifi c antig ens desig kin to elici t respo nses from TB antig en prime d CD4+ helpe r T-lym phocy britton. The TB2 Antig en tube is coate d with the M. tuber culos is-sp ecifi c antig ens desig kin to elici t respo nses from TB antig en prime d CD4+ helpe r and CD8+ cytot oxic T-lym phocy britton. For addit ional infor osmani roger refer to https ://ed ucati on.qu constantino valerioServer Density/f aq/FA Q204 (This link is being provi ded for infor dustin dia/ stephanie hoffman purpo ses only. ) Not Available [facility] [facility] [place] [facility] [address] [place] [address], [place], [address], 05/02/2023 09:02:55 10/28/1910/28/2023 CBC WBC 8.63 K/ L 3.98-1 0.04 Not Available [address], [address], 10/28/2023 10:38:17 10/28/19 24 10/28/2023 CBC RBC 4.41 M/ L 3.93-5 .22 Not Available [address], [address], 10/28/2023 10:38:17 10/28/19 24 10/28/2023 CBC HGB 13.0 g/dL 11.2-1 5.7 Not Available [address], [address], 10/28/2023 10:38:17 10/28/19 24 10/28/2023 CBC HCT 39.9 % 34.1-4 4.9 Not Available [address], [address], 10/28/2023 10:38:17 10/28/19 24 10/28/2023 CBC MCV 90.5 fL 79.4-9 4.8 Not Available [address], [address], 10/28/2023 10:38:17 10/28/19 24 10/28/2023 CBC MCH 29.5 pg 25.6-3 2.2 Not Available [address], [address], 10/28/2023 10:38:17 10/28/19 24 10/28/2023 CBC MCHC 32.6 g/dL 32.2-3 5.5 Not Available [address], [address], 10/28/2023 10:38:17 10/28/19 24 10/28/2023 CBC plt 314 K/ L 182-36 9 Not Available [address], [address], 10/28/2023 10:38:17 10/28/19 24 10/28/2023 CBC MPV 10.4 fL 9.4-12 .3 Not Available [address], [address], 10/28/2023 10:38:17 10/28/19 24 10/28/2023 CBC neut% 66.0 % 34.0-7 1.1 Not Available [address], [address], 10/28/2023 10:38:17 10/28/19 24 10/28/2023 CBC neut# 5.70 1.56-6 .13 Not Available [address], [address], 10/28/2023 10:38:17 10/28/19 24 10/28/2023 CBC lymph % 21.6 % 19.3-5 1.7 Not Available [address], [address], 10/28/2023 10:38:17 10/28/19 24 10/28/2023 CBC lymph # 1.86 K/ L 1.18-3 .74 Not Available [address], [address], 10/28/2023 10:38:17 10/28/19 24 10/28/2023 CBC mono% 5.9 % 4.7-12 .5 Not Available [address], [address], 10/28/2023 10:38:17 10/28/19 24 10/28/2023 CBC mono# 0.51 0.24-0 .56 Not Available [address], [address], 10/28/2023 10:38:17 10/28/19 24 10/28/2023 CBC eo% 5.1 % 0.7-5. 8 Not Available [address], [address], 10/28/2023 10:38:17 10/28/19 24 10/28/2023 CBC eo# 0.44 0.04-0 .36 high Not Available [address], [address], 10/28/2023 10:38:17 10/28/19 24 10/28/2023 CBC baso% 0.6 % 0.1-1. 2 Not Available [address], [address], 10/28/2023 10:38:17 10/28/19 24 10/28/2023 CBC baso# 0.05 0.00-0 .08 Not Available [address], [address], 10/28/2023 10:38:17 10/28/19 24 10/28/2023 CBC RDW-CV 13.4 % 11.7-1 4.4 Not Available [address], [address], 10/28/2023 10:38:17 10/28/19 24 10/28/2023 CBC Ig% 0.800 % 0.000- 1.500 Ig % >0.5 Indic ates possi ble Left Shift Not Available [address], [address], 10/28/2023 10:38:17 10/28/19 24 10/28/2023 CBC Ig# 0.070 0.000- 0.093 Not Available [address], [address], 10/28/2023 10:38:17 10/28/19 24 10/28/2023 CBC NRBC% 0.0 % 0.0-0. 2 Not Available [address], [address], 10/28/2023 10:38:17 10/28/19 24 10/28/2023 CBC NRBC# 0.000 0.000- 0.012 Not Available [address], [address], 10/28/2023 10:38:17 10/28/19 24 10/28/2023 HGB A1C hemoglobin A1C 6.1 % 4.8-6. 0 high Goal: <7% in Patie nts with Diabe britton An A1c betwe en 5.7-6 .4% is ident ified as pre-d iabet es and sugge sts risk for progr essio n to diabe britton Two a1c value s of 6.5% or highe r is consi stent with a diagn osis of diabe britton but may need furth er confi rmati on Not Available [address], [address], 10/28/2023 11:10:13 10/28/19 24 10/28/2023 HGB A1C estimated average glucose 128.4 mg/dL Not Available [address], [address], 10/28/2023 11:10:13 10/28/19 24 10/28/2023 ESR sed rate 28.0 0.0-15 .0 high Not Available [address], [address], 10/28/2023 12:13:42 10/28/19 24 10/28/2023 C-KERON CTIVE PROTE IN (RCRP ) C-reactive protein (rcrp) 14.2 mg/dL 0.5-9. 0 high Not Available [address], [address], 10/28/2023 13:52:10 10/28/19 24 10/28/2023 COMP. METAB OLIC PANEL glucose 101 mg/dL 70-100 high Not Available [address], [address], 10/28/2023 14:07:44 10/28/19 24 10/28/2023 COMP. METAB OLIC PANEL BUN 16 mg/dL 7-18 Not Available [address], [address], 10/28/2023 14:07:44 10/28/19 24 10/28/2023 COMP. METAB OLIC PANEL creatinine 0.6 mg/dL 0.8-1. 3 low Not Available [address], [address], 10/28/2023 14:07:44 10/28/19 24 10/28/2023 COMP. METAB OLIC PANEL B/C 26.7 ratio Not Available [address], [address], 10/28/2023 14:07:44 10/28/19 24 10/28/2023 COMP. METAB OLIC PANEL GFR >=60ML /MIN mL/mi n normal >=60m L/min - Lilly l or midly reduc ed <60mL /min- Decre ased kidne y funct ion <15mL /min - Kidne y failu re [facility] calcu lates estim ated Glome rular Filtr ation Rate (eGFR ) using the Chron ic Kidne y Disea se Epide miolo gy Colla borat ion (CKD- EPI) Equat ion (Jaylen r et. al 2020) as recom jaylen d by the Natio nal Kidne y Found ation . eGFR is based on age, serum creat inine , and sex. CKD-E PI does not calcu late eGFR by race, does not apply to child rodrigue (age <18 years ), and shoul d not be used in pregn cindy. Not Available [address], [address], 10/28/2023 14:07:44 10/28/19 24 10/28/2023 COMP. METAB OLIC PANEL sodium 144 mmol/ L 136-14 5 Not Available [address], [address], 10/28/2023 14:07:44 10/28/19 24 10/28/2023 COMP. METAB OLIC PANEL potassium 4.6 mmol/ L 3.5-5. 1 Not Available [address], [address], 10/28/2023 14:07:44 10/28/19 24 10/28/2023 COMP. METAB OLIC PANEL chloride 105 mmol/ L 96-107 Not Available [address], [address], 10/28/2023 14:07:44 10/28/19 24 10/28/2023 COMP. METAB OLIC PANEL anion gap 11.7 5.0-15 .0 Not Available [address], [address], 10/28/2023 14:07:44 10/28/19 24 10/28/2023 COMP. METAB OLIC PANEL CO2 27 mmol/ L 21-32 Not Available [address], [address], 10/28/2023 14:07:44 10/28/19 24 10/28/2023 COMP. METAB OLIC PANEL calcium 9.0 mg/dL 8.5-10 .3 Not Available [address], [address], 10/28/2023 14:07:44 10/28/19 24 10/28/2023 COMP. METAB OLIC PANEL total protein 6.9 g/dL 6.4-8. 2 Not Available [address], [address], 10/28/2023 14:07:44 10/28/19 24 10/28/2023 COMP. METAB OLIC PANEL albumin 3.4 g/dL 3.4-5. 0 Not Available [address], [address], 10/28/2023 14:07:44 10/28/19 24 10/28/2023 COMP. METAB OLIC PANEL globulin 3.5 g/dL Not Available [address], [address], 10/28/2023 14:07:44 10/28/19 24 10/28/2023 COMP. METAB OLIC PANEL A/G 1.0 ratio 0.8-2. 0 Not Available [address], [address], 10/28/2023 14:07:44 10/28/19 24 10/28/2023 COMP. METAB OLIC PANEL total bilirubin 0.30 mg/dL 0.00-1 .00 Not Available [address], [address], 10/28/2023 14:07:44 10/28/19 24 10/28/2023 COMP. METAB OLIC PANEL AST 21 U/L 0-37 Not Available [address], [address], 10/28/2023 14:07:44 10/28/19 24 10/28/2023 COMP. METAB OLIC PANEL ALT 28 U/L 6-63 Not Available [address], [address], 10/28/2023 14:07:44 10/28/19 24 10/28/2023 COMP. METAB OLIC PANEL alk. phos. 99 U/L 50-136 Not Available [address], [address], 10/28/2023 14:07:44 01/05/20 24 01/05/2024 CBC WBC 9.69 K/ L 3.98-1 0.04 Not Available [address], [address], 01/05/2024 12:19:52 01/05/20 24 01/05/2024 CBC RBC 4.49 M/ L 3.93-5 .22 Not Available [address], [address], 01/05/2024 12:19:52 01/05/20 24 01/05/2024 CBC HGB 13.4 g/dL 11.2-1 5.7 Not Available [address], [address], 01/05/2024 12:19:52 01/05/20 24 01/05/2024 CBC HCT 40.4 % 34.1-4 4.9 Not Available [address], [address], 01/05/2024 12:19:52 01/05/20 24 01/05/2024 CBC MCV 90.0 fL 79.4-9 4.8 Not Available [address], [address], 01/05/2024 12:19:52 01/05/20 24 01/05/2024 CBC MCH 29.8 pg 25.6-3 2.2 Not Available [address], [address], 01/05/2024 12:19:52 01/05/20 24 01/05/2024 CBC MCHC 33.2 g/dL 32.2-3 5.5 Not Available [address], [address], 01/05/2024 12:19:52 01/05/20 24 01/05/2024 CBC plt 333 K/ L 182-36 9 Not Available [address], [address], 01/05/2024 12:19:52 01/05/20 24 01/05/2024 CBC MPV 10.8 fL 9.4-12 .3 Not Available [address], [address], 01/05/2024 12:19:52 01/05/20 24 01/05/2024 CBC neut% 74.1 % 34.0-7 1.1 high Not Available [address], [address], 01/05/2024 12:19:52 01/05/20 24 01/05/2024 CBC neut# 7.18 1.56-6 .13 high Not Available [address], [address], 01/05/2024 12:19:52 01/05/20 24 01/05/2024 CBC lymph % 16.0 % 19.3-5 1.7 low Not Available [address], [address], 01/05/2024 12:19:52 01/05/20 24 01/05/2024 CBC lymph # 1.55 K/ L 1.18-3 .74 Not Available [address], [address], 01/05/2024 12:19:52 01/05/20 24 01/05/2024 CBC mono% 5.5 % 4.7-12 .5 Not Available [address], [address], 01/05/2024 12:19:52 01/05/20 24 01/05/2024 CBC mono# 0.53 0.24-0 .56 Not Available [address], [address], 01/05/2024 12:19:52 01/05/20 24 01/05/2024 CBC eo% 3.2 % 0.7-5. 8 Not Available [address], [address], 01/05/2024 12:19:52 01/05/20 24 01/05/2024 CBC eo# 0.31 0.04-0 .36 Not Available [address], [address], 01/05/2024 12:19:52 01/05/20 24 01/05/2024 CBC baso% 0.5 % 0.1-1. 2 Not Available [address], [address], 01/05/2024 12:19:52 01/05/20 24 01/05/2024 CBC baso# 0.05 0.00-0 .08 Not Available [address], [address], 01/05/2024 12:19:52 01/05/20 24 01/05/2024 CBC RDW-CV 13.0 % 11.7-1 4.4 Not Available [address], [address], 01/05/2024 12:19:52 01/05/20 24 01/05/2024 CBC Ig% 0.700 % 0.000- 1.500 Ig % >0.5 Indic ates possi ble Left Shift Not Available [address], [address], 01/05/2024 12:19:52 01/05/20 24 01/05/2024 CBC Ig# 0.070 0.000- 0.093 Not Available [address], [address], 01/05/2024 12:19:52 01/05/20 24 01/05/2024 CBC NRBC% 0.0 % 0.0-0. 2 Not Available [address], [address], 01/05/2024 12:19:52 01/05/20 24 01/05/2024 CBC NRBC# 0.000 0.000- 0.012 Not Available [address], [address], 01/05/2024 12:19:52 01/05/20 24 01/05/2024 ESR sed rate 39.0 0.0-15 .0 high Not Available [address], [address], 01/05/2024 15:04:37 01/05/20 24 01/06/2024 LIPID PANEL cholesterol 188 mg/dL <200 mg/dl Pineda able 200-2 39 mg/dl Borde rline High >240 mg/dl High Not Available [address], [address], 01/06/2024 10:56:12 01/05/20 24 01/06/2024 LIPID PANEL triglyceride s 139 mg/dL <150 mg/dL Lilly l 150-1 99 mg/dL Borde rline High 200-4 99 mg/dL High >500 mg/dL Very High Not Available [address], [address], 01/06/2024 10:56:12 01/05/20 24 01/06/2024 LIPID PANEL direct HDL 52 mg/dL <40 mg/dl - Major Risk for CHD >60 mg/dl - Negat damir Risk for CHD Not Available [address], [address], 01/06/2024 10:56:12 01/05/20 24 01/06/2024 DIREC T LDL direct LDL 109 mg/dL RISK CATEG ORY LDL GOAL _ CHD or CHD Risk Equiv alent s <100 mg/dl (10-y ear risk >20%) 2+ Risk Facto rs <130 mg/dl (10-y ear risk <= 20%) 0-1 Risk Facto r <160 mg/dl [facility] all peopl e with 0-1 risk facto r have a 10 year risk <10%, thus 10 year risk asses ment in peopl e with 0-1 risk facto r is not carolyn guera. Not Available [address], [address], 01/06/2024 10:56:13 01/05/20 24 01/06/2024 COMP. METAB OLIC PANEL glucose 109 mg/dL 70-100 high Not Available [address], [address], 01/06/2024 10:59:20 01/05/20 24 01/06/2024 COMP. METAB OLIC PANEL BUN 20 mg/dL 7-18 high Not Available [address], [address], 01/06/2024 10:59:20 01/05/20 24 01/06/2024 COMP. METAB OLIC PANEL creatinine 0.8 mg/dL 0.8-1. 3 Not Available [address], [address], 01/06/2024 10:59:20 01/05/20 24 01/06/2024 COMP. METAB OLIC PANEL B/C 25.0 ratio Not Available [address], [address], 01/06/2024 10:59:20 01/05/20 24 01/06/2024 COMP. METAB OLIC PANEL GFR >=60ML /MIN mL/mi n normal >=60m L/min - Lilly l or midly reduc ed <60mL /min- Decre ased kidne y funct ion <15mL /min - Kidne y failu re [facility] calcu lates estim ated Glome rular Filtr ation Rate (eGFR ) using the Chron ic Kidne y Disea se Epide miolo gy Colla borat ion (CKD- EPI) Equat ion (Jaylen r et. al 2020) as recom jaylen d by the [facility] . eGFR is based on age, serum creat inine , and sex. CKD-E PI does not calcu late eGFR by race, does not apply to child rodrigue (age <18 years ), and shoul d not be used in pregn cindy. Not Available [address], [address], 01/06/2024 10:59:20 01/05/20 24 01/06/2024 COMP. METAB OLIC PANEL sodium 142 mmol/ L 136-14 5 Not Available [address], [address], 01/06/2024 10:59:20 01/05/20 24 01/06/2024 COMP. METAB OLIC PANEL potassium 4.2 mmol/ L 3.5-5. 1 Not Available [address], [address], 01/06/2024 10:59:20 01/05/20 24 01/06/2024 COMP. METAB OLIC PANEL chloride 104 mmol/ L 96-107 Not Available [address], [address], 01/06/2024 10:59:20 01/05/20 24 01/06/2024 COMP. METAB OLIC PANEL anion gap 9.1 5.0-15 .0 Not Available [address], [address], 01/06/2024 10:59:20 01/05/20 24 01/06/2024 COMP. METAB OLIC PANEL CO2 29 mmol/ L 21-32 Not Available [address], [address], 01/06/2024 10:59:20 01/05/20 24 01/06/2024 COMP. METAB OLIC PANEL calcium 9.4 mg/dL 8.5-10 .3 Not Available [address], [address], 01/06/2024 10:59:20 01/05/20 24 01/06/2024 COMP. METAB OLIC PANEL total protein 7.2 g/dL 6.4-8. 2 Not Available [address], [address], 01/06/2024 10:59:20 01/05/20 24 01/06/2024 COMP. METAB OLIC PANEL albumin 3.8 g/dL 3.4-5. 0 Not Available [address], [address], 01/06/2024 10:59:20 01/05/20 24 01/06/2024 COMP. METAB OLIC PANEL globulin 3.4 g/dL Not Available [address], [address], 01/06/2024 10:59:20 01/05/20 24 01/06/2024 COMP. METAB OLIC PANEL A/G 1.1 ratio 0.8-2. 0 Not Available [address], [address], 01/06/2024 10:59:20 01/05/20 24 01/06/2024 COMP. METAB OLIC PANEL total bilirubin 0.40 mg/dL 0.00-1 .00 Not Available [address], [address], 01/06/2024 10:59:20 01/05/20 24 01/06/2024 COMP. METAB OLIC PANEL AST 19 U/L 0-37 Not Available [address], [address], 01/06/2024 10:59:20 01/05/20 24 01/06/2024 COMP. METAB OLIC PANEL ALT 27 U/L 6-63 Not Available [address], [address], 01/06/2024 10:59:20 01/05/20 24 01/06/2024 COMP. METAB OLIC PANEL alk. phos. 100 U/L 50-136 Not Available [address], [address], 01/06/2024 10:59:20 01/05/20 24 01/06/2024 C-KERON CTIVE PROTE IN (RCRP ) C-reactive protein (rcrp) 14.1 mg/dL 0.5-9. 0 high Not Available [address], [address], 01/06/2024 10:59:21 06/29/20 24 06/29/2024 CBC WBC 7.75 K/ L 3.98-1 0.04 Not Available [address], [address], 06/29/2024 12:35:02 06/29/20 24 06/29/2024 CBC RBC 4.27 M/ L 3.93-5 .22 Not Available [address], [address], 06/29/2024 12:35:02 06/29/20 24 06/29/2024 CBC HGB 12.9 g/dL 11.2-1 5.7 Not Available [address], [address], 06/29/2024 12:35:02 06/29/20 24 06/29/2024 CBC HCT 38.8 % 34.1-4 4.9 Not Available [address], [address], 06/29/2024 12:35:02 06/29/20 24 06/29/2024 CBC MCV 90.9 fL 79.4-9 4.8 Not Available [address], [address], 06/29/2024 12:35:02 06/29/20 24 06/29/2024 CBC MCH 30.2 pg 25.6-3 2.2 Not Available [address], [address], 06/29/2024 12:35:02 06/29/20 24 06/29/2024 CBC MCHC 33.2 g/dL 32.2-3 5.5 Not Available [address], [address], 06/29/2024 12:35:02 06/29/20 24 06/29/2024 CBC plt 339 K/ L 182-36 9 Not Available [address], [address], 06/29/2024 12:35:02 06/29/20 24 06/29/2024 CBC MPV 10.5 fL 9.4-12 .3 Not Available [address], [address], 06/29/2024 12:35:02 06/29/20 24 06/29/2024 CBC neut% 68.2 % 34.0-7 1.1 Not Available [address], [address], 06/29/2024 12:35:02 06/29/20 24 06/29/2024 CBC neut# 5.29 1.56-6 .13 Not Available [address], [address], 06/29/2024 12:35:02 06/29/20 24 06/29/2024 CBC lymph % 19.9 % 19.3-5 1.7 Not Available [address], [address], 06/29/2024 12:35:02 06/29/20 24 06/29/2024 CBC lymph # 1.54 K/ L 1.18-3 .74 Not Available [address], [address], 06/29/2024 12:35:02 06/29/20 24 06/29/2024 CBC mono% 6.2 % 4.7-12 .5 Not Available [address], [address], 06/29/2024 12:35:02 06/29/20 24 06/29/2024 CBC mono# 0.48 0.24-0 .56 Not Available [address], [address], 06/29/2024 12:35:02 06/29/20 24 06/29/2024 CBC eo% 4.3 % 0.7-5. 8 Not Available [address], [address], 06/29/2024 12:35:02 06/29/20 24 06/29/2024 CBC eo# 0.33 0.04-0 .36 Not Available [address], [address], 06/29/2024 12:35:02 06/29/20 24 06/29/2024 CBC baso% 0.6 % 0.1-1. 2 Not Available [address], [address], 06/29/2024 12:35:02 06/29/20 24 06/29/2024 CBC baso# 0.05 0.00-0 .08 Not Available [address], [address], 06/29/2024 12:35:02 06/29/20 24 06/29/2024 CBC RDW-CV 13.2 % 11.7-1 4.4 Not Available [address], [address], 06/29/2024 12:35:02 06/29/20 24 06/29/2024 CBC Ig% 0.800 % 0.000- 1.500 Ig % >0.5 Indic ates possi ble Left Shift Not Available [address], [address], 06/29/2024 12:35:02 06/29/20 24 06/29/2024 CBC Ig# 0.060 0.000- 0.093 Not Available [address], [address], 06/29/2024 12:35:02 06/29/20 24 06/29/2024 CBC NRBC% 0.0 % 0.0-0. 2 Not Available [address], [address], 06/29/2024 12:35:02 06/29/20 24 06/29/2024 CBC NRBC# 0.000 0.000- 0.012 Not Available [address], [address], 06/29/2024 12:35:02 06/29/20 24 06/29/2024 HGB A1C hemoglobin A1C 6.0 % 4.8-6. 0 Goal: <7% in Patie nts with Diabe britton An A1c betwe en 5.7-6 .4% is ident ified as pre-d iabet es and sugge sts risk for progr essio n to diabe britton Two a1c value s of 6.5% or highe r is consi stent with a diagn osis of diabe britton but may need furth er confi rmati on Not Available [address], [address], 06/29/2024 14:40:39 06/29/20 24 06/29/2024 HGB A1C estimated average glucose 125.5 mg/dL Not Available [address], [address], 06/29/2024 14:40:39 06/29/20 24 07/02/2024 COMP. METAB OLIC PANEL glucose 98 mg/dL 70-100 Not Available [address], [address], 07/02/2024 14:13:14 06/29/20 24 07/02/2024 COMP. METAB OLIC PANEL BUN 18 mg/dL 7-18 Not Available [address], [address], 07/02/2024 14:13:14 06/29/20 24 07/02/2024 COMP. METAB OLIC PANEL creatinine 0.7 mg/dL 0.8-1. 3 low Not Available [address], [address], 07/02/2024 14:13:14 06/29/20 24 07/02/2024 COMP. METAB OLIC PANEL B/C 25.7 ratio Not Available [address], [address], 07/02/2024 14:13:14 06/29/20 24 07/02/2024 COMP. METAB OLIC PANEL GFR >=60ML /MIN mL/mi n normal >=60m L/min - Lilly l or midly reduc ed <60mL /min- Decre ased kidne y funct ion <15mL /min - Kidne y failu re [facility] calcu lates estim ated Glome rular Filtr ation Rate (eGFR ) using the Chron ic Kidne y Disea se Epide miolo gy Colla borat ion (CKD- EPI) Equat ion (Jaylen r et. al 2020) as recom jaylen d by the Natio nal Kidne y Found ation . eGFR is based on age, serum creat inine , and sex. CKD-E PI does not calcu late eGFR by race, does not apply to child rodrigue (age <18 years ), and shoul d not be used in pregn cindy. Not Available [address], [address], 07/02/2024 14:13:14 06/29/20 24 07/02/2024 COMP. METAB OLIC PANEL sodium 142 mmol/ L 136-14 5 Not Available [address], [address], 07/02/2024 14:13:14 06/29/20 24 07/02/2024 COMP. METAB OLIC PANEL potassium 4.4 mmol/ L 3.5-5. 1 Not Available [address], [address], 07/02/2024 14:13:14 06/29/20 24 07/02/2024 COMP. METAB OLIC PANEL chloride 105 mmol/ L 96-107 Not Available [address], [address], 07/02/2024 14:13:14 06/29/20 24 07/02/2024 COMP. METAB OLIC PANEL anion gap 9.8 5.0-15 .0 Not Available [address], [address], 07/02/2024 14:13:14 06/29/20 24 07/02/2024 COMP. METAB OLIC PANEL CO2 27 mmol/ L 21-32 Not Available [address], [address], 07/02/2024 14:13:14 06/29/20 24 07/02/2024 COMP. METAB OLIC PANEL calcium 9.5 mg/dL 8.5-10 .3 Not Available [address], [address], 07/02/2024 14:13:14 06/29/20 24 07/02/2024 COMP. METAB OLIC PANEL total protein 7.6 g/dL 6.4-8. 2 Not Available [address], [address], 07/02/2024 14:13:14 06/29/20 24 07/02/2024 COMP. METAB OLIC PANEL albumin 3.9 g/dL 3.4-5. 0 Not Available [address], [address], 07/02/2024 14:13:14 06/29/20 07/02/2024 COMP. METAB OLIC PANEL globulin 3.7 g/dL Not Available [address], [address], 07/02/2024 14:13:14 06/29/20 24 07/02/2024 COMP. METAB OLIC PANEL A/G 1.1 ratio 0.8-2. 0 Not Available [address], [address], 07/02/2024 14:13:14 06/29/20 24 07/02/2024 COMP. METAB OLIC PANEL total bilirubin 0.40 mg/dL 0.00-1 .00 Not Available [address], [address], 07/02/2024 14:13:14 06/29/20 24 07/02/2024 COMP. METAB OLIC PANEL AST 19 U/L 0-37 Not Available [address], [address], 07/02/2024 14:13:14 06/29/20 24 07/02/2024 COMP. METAB OLIC PANEL ALT 26 U/L 6-63 Not Available [address], [address], 07/02/2024 14:13:14 06/29/20 24 07/02/2024 COMP. METAB OLIC PANEL alk. phos. 102 U/L 50-136 Not Available [address], [address], 07/02/2024 14:13:14 06/29/20 24 07/02/2024 LIPID PANEL cholesterol 205 mg/dL <200 mg/dl Pineda able 200-2 39 mg/dl Borde rline High >240 mg/dl High Not Available [address], [address], 07/02/2024 14:13:15 06/29/20 24 07/02/2024 LIPID PANEL triglyceride s 109 mg/dL <150 mg/dL Lilly l 150-1 99 mg/dL Borde rline High 200-4 99 mg/dL High >500 mg/dL Very High Not Available [address], [address], 07/02/2024 14:13:15 06/29/20 24 07/02/2024 LIPID PANEL direct HDL 56 mg/dL <40 mg/dl - Major Risk for CHD >60 mg/dl - Negat damir Risk for CHD Not Available [address], [address], 07/02/2024 14:13:15 06/29/20 24 07/02/2024 LDL - CALCU LATED LDL - calculated 127 RISK CATEG ORY LDL GOAL _ CHD or CHD Risk Equiv alent s <100 mg/dl (10-y ear risk >20%) 2+ Risk Facto rs <130 mg/dl (10-y ear risk <= 20%) 0-1 Risk Facto r <160 mg/dl [facility] all peopl e with 0-1 risk facto r have a 10 year risk <10%, thus 10 year risk asses ment in peopl e with 0-1 risk facto r is not neces guera. Not Available [address], [address], 07/02/2024 14:13:16 06/29/20 24 07/03/2024 C-KERON CTIVE PROTE IN (RCRP ) C-reactive protein (rcrp) 15.6 mg/dL 0.5-9. 0 high Not Available [address], [address], 07/03/2024 11:43:52 07/03/20 24 07/06/2024 HPV MRNA E6/E7 HPV MRNA E6/E7 NEGATI VE negati ve normal Metho dolog y: Trans cript ion-M ediat ed Ampli ficat ion This assay detec ts E6/E7 viral messe nger RNA (mRNA ) from 14 high- risk HPV types (16,1 8,31, 33,35 ,39,4 5,51, 52,56 ,58,5 9,66, 68). Not Available [address], [place], [address], 07/06/2024 07:59:38 07/03/20 24 07/06/2024 THINP REP TIS PAP clinical information: normal None given Not Available [facility] [address], [address], 07/06/2024 14:27:42 07/03/20 24 07/06/2024 THINP REP TIS PAP LMP: normal NONE GIVEN Not Available [facility] [address], [address], 07/06/2024 14:27:42 07/03/20 24 07/06/2024 THINP REP TIS PAP prev. Pap: normal NONE GIVEN Not Available [facility] [address], [address], 07/06/2024 14:27:42 07/03/20 24 07/06/2024 THINP REP TIS PAP prev. BX: normal NONE GIVEN Not Available [facility] [address], [address], 07/06/2024 14:27:42 07/03/20 24 07/06/2024 THINP REP TIS PAP source: normal None given Not Available [facility] [address], [id number], 07/06/2024 14:27:42 07/03/20 24 07/06/2024 THINP REP TIS PAP statement of adequacy: normal Satis facto ry for evalu ation . Endoc ervic al/tr ansfo rmati on zone compo nent absen t. Not Available [facility] [address], [address], 07/06/2024 14:27:42 07/03/20 24 07/06/2024 THINP REP TIS PAP interpretati on/result: normal Cytol ogy Resul ts: Negat damir for intra epith elial lesio n or malig konstantin . Not Available [facility] [address], [address], 07/06/2024 14:27:42 07/03/20 24 07/06/2024 THINP REP TIS PAP comment: normal This Pap test has been evalu ated with compu ter lashae ngoc techn ology . Not Available [facility] [address] [place] [address], [id number], 07/06/2024 14:27:42 07/03/20 24 07/06/2024 THINP REP TIS PAP cytotechnolo gist: normal JEH, CT( CP) CT scree tad locat ion: [facility], [facility], [place] , [address] [place] [address], [place] [address] Slide prepa ratio n perfo rmed at: [facility], [address] [place] [address] CLIA No. [id number] Not Available [facility] [address], [address], 07/06/2024 14:27:42 07/03/20 24 07/06/2024 THINP REP TIS PAP Unknown Analyte EXPLA NATOR Y NOTE: The Pap is a scree tad test for cervi joe cance r. It is not a diagn ostic test and is subje ct to false negat damir and false posit damir resul ts. It is most relia ble when a satis facto ry sampl e, regul juliet obtai kin, is submi tted with relev ant clini jeo findi ngs and histo ry, and when the Pap resul t is evalu ated along with histo adan and curre nt clini joe infor dustin n. Not Available [facility] 200 [facility] [address], [place], [address], 07/06/2024 14:27:42 12/29/19 25 12/28/2024 CBC WBC 9.30 K/ L 3.98-1 0.04 Not Available [address], [address], 12/28/2024 10:42:17 12/29/19 25 12/28/2024 CBC RBC 4.57 M/ L 3.93-5 .22 Not Available [address], [address], 12/28/2024 10:42:17 12/29/19 25 12/28/2024 CBC HGB 13.5 g/dL 11.2-1 5.7 Not Available [address], [address], 12/28/2024 10:42:17 12/29/19 25 12/28/2024 CBC HCT 41.3 % 34.1-4 4.9 Not Available [address], [address], 12/28/2024 10:42:17 12/29/19 25 12/28/2024 CBC MCV 90.4 fL 79.4-9 4.8 Not Available [address], [address], 12/28/2024 10:42:17 12/29/19 25 12/28/2024 CBC MCH 29.5 pg 25.6-3 2.2 Not Available [address], [address], 12/28/2024 10:42:17 12/29/19 25 12/28/2024 CBC MCHC 32.7 g/dL 32.2-3 5.5 Not Available [address], [address], 12/28/2024 10:42:17 12/29/1912/28/2024 CBC plt 345 K/ L 182-36 9 Not Available [address], [address], 12/28/2024 10:42:17 12/29/1912/28/2024 CBC MPV 10.3 fL 9.4-12 .3 Not Available [address], [address], 12/28/2024 10:42:17 12/29/1912/28/2024 CBC neut% 64.0 % 34.0-7 1.1 Not Available [address], [address], 12/28/2024 10:42:17 12/29/1912/28/2024 CBC neut# 5.96 1.56-6 .13 Not Available [address], [address], 12/28/2024 10:42:17 12/29/1912/28/2024 CBC lymph % 22.7 % 19.3-5 1.7 Not Available [address], [address], 12/28/2024 10:42:17 12/29/1912/28/2024 CBC lymph # 2.11 K/ L 1.18-3 .74 Not Available [address], [address], 12/28/2024 10:42:17 12/29/1912/28/2024 CBC mono% 7.5 % 4.7-12 .5 Not Available [address], [address], 12/28/2024 10:42:17 12/29/1912/28/2024 CBC mono# 0.70 0.24-0 .56 high Not Available [address], [address], 12/28/2024 10:42:17 12/29/1912/28/2024 CBC eo% 4.2 % 0.7-5. 8 Not Available [address], [address], 12/28/2024 10:42:17 12/29/1912/28/2024 CBC eo# 0.39 0.04-0 .36 high Not Available [address], [address], 12/28/2024 10:42:17 12/29/1912/28/2024 CBC baso% 0.8 % 0.1-1. 2 Not Available [address], [address], 12/28/2024 10:42:17 12/29/1912/28/2024 CBC baso# 0.07 0.00-0 .08 Not Available [address], [address], 12/28/2024 10:42:17 12/29/1912/28/2024 CBC RDW-CV 13.6 % 11.7-1 4.4 Not Available [address], [address], 12/28/2024 10:42:17 12/29/1912/28/2024 CBC Ig% 0.800 % 0.000- 1.500 Ig % >0.5 Indic ates possi ble Left Shift Not Available [address], [address], 12/28/2024 10:42:17 12/29/1912/28/2024 CBC Ig# 0.070 0.000- 0.093 Not Available [address], [address], 12/28/2024 10:42:17 12/29/19 25 12/28/2024 CBC NRBC% 0.0 % 0.0-0. 2 Not Available [address], [address], 12/28/2024 10:42:17 12/29/19 25 12/28/2024 CBC NRBC# 0.000 0.000- 0.012 Not Available [address], [address], 12/28/2024 10:42:17 12/29/19 25 12/28/2024 ESR sed rate 34.0 0.0-15 .0 high Not Available [address], [address], 12/28/2024 11:37:00 12/29/19 25 12/28/2024 COMP. METAB OLIC PANEL glucose 108 mg/dL 70-100 high Not Available [address], [address], 12/28/2024 12:13:27 12/29/19 25 12/28/2024 COMP. METAB OLIC PANEL BUN 20 mg/dL 7-18 high Not Available [address], [address], 12/28/2024 12:13:27 12/29/19 25 12/28/2024 COMP. METAB OLIC PANEL creatinine 0.8 mg/dL 0.8-1. 3 Not Available [address], [address], 12/28/2024 12:13:27 12/29/19 25 12/28/2024 COMP. METAB OLIC PANEL B/C 25.0 ratio Not Available [address], [address], 12/28/2024 12:13:27 12/29/19 25 12/28/2024 COMP. METAB OLIC PANEL GFR >=60ML /MIN mL/mi n normal >=60m L/min - Lilly l or midly reduc ed <60mL /min- Decre ased kidne y funct ion <15mL /min - Kidne y failu re [facility] calcu lates estim ated Glome rular Filtr ation Rate (eGFR ) using the Chron ic Kidne y Disea se Epide miolo gy Colla borat ion (CKD- EPI) Equat ion (Jaylen r et. al 2020) as recom jaylen d by the Natio nal Kidne y Found ation . eGFR is based on age, serum creat inine , and sex. CKD-E PI does not calcu late eGFR by race, does not apply to child rodrigue (age <18 years ), and shoul d not be used in pregn cindy. Not Available [address], [address], 12/28/2024 12:13:27 12/29/1912/28/2024 COMP. METAB OLIC PANEL sodium 143 mmol/ L 136-14 5 Not Available [address], [address], 12/28/2024 12:13:27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 Available Not Available Not Available Otezla 30 mg tablet TAKE 1 TABLET BY MOUTH TWICE A DAY active Not Available Not Available No t Available Flonase Allergy Relief active OTC prn Not Available Not Available Not Available Otezla [...] height Body mass index (BMI) Body weight Oxygen saturation Oxygen saturation in Arterial blood by Pulse oximetry Heart rate Systolic And Diastolic Provider Name and Address Organization Details Last Updated DateTime 3 154.31 cm 37.9 kg/m2 59146.8 8 g 99 % 99 % 92 /min 104/66 mm[Hg] Nusrat Simons MA [facility] 3 08:24:06 Date Recorded Body height Body mass index (BMI) Body weight Heart rate Oxygen saturation Oxygen saturation in Arterial blood by Pulse oximetry Systolic And Diastolic Provider Name and Address Organization Details Last Updated DateTime 5 154.31 cm 38.7 kg/m2 66628.6 5 g 83 /min 96 % 96 % 104/64 mm[Hg] Karen Clifton MA [facility] 5 14:05:58 Date Recorded Systolic And Diastolic Provider Name and Address Organization Details Last Updated DateTime 04/02/2024 110/68 mm[Hg] Christina Hall P [address] [place] [address], [phone], [facility] 04/02/2024 12:06:55 Date Recorded Body height Body mass index (BMI) Body weight Heart rate Oxygen saturation Oxygen saturation in Arterial blood by Pulse oximetry Systolic And Diastolic Provider Name and Address Organization Details Last Updated DateTime 4 154.31 cm 36.6 kg/m2 27375.7 4 g 75 /min 98 % 98 % 108/70 mm[Hg] Karen Clifton MA [facility] 4 11:42:10 Date Recorded Systolic And Diastolic Provider Name and Address Organization Details Last Updated DateTime 05/06/2023 110/72 mm[Hg] BALTA Dow, N P [address] [place], [address], [facility] 05/06/2023 12:05:14 Date Recorded Body height Heart rate Oxygen saturation Oxygen saturation in Arterial blood by Pulse oximetry Body mass index (BMI) Body weight Systolic And Diastolic Provider Name and Address Organization Details Last Updated DateTime 3 154.31 cm 80 /min 98 % 98 % 37.3 kg/m2 67694.1 g 102/66 mm[Hg] Sangeetha Vasquez LPN [facility] 3 11:41:03 Date Recorded Body height Body mass index (BMI) Body weight Heart rate Oxygen saturation Oxygen saturation in Arterial blood by Pulse oximetry Systolic And Diastolic Provider Name and Address Organization Details Last Updated DateTime 4 154.31 cm 37.7 kg/m2 88174.2 9 g 74 /min 96 % 96 % 112/74 mm[Hg] Karen Clifton MA [facility] 4 08:13:47 Social History Question Answer Notes LastModified by Organizat ion Details LastModified Time Tobacco Smoking Status Former Smoker quit 03/28/2001, smoked for 6 yrs, smoked 10 cigs or less daily Karen Clifton MA [facility] 04/02/2024 11:38:34 How Much Tobacco Do You Chew? None willam Information not available 11/12/2013 Which Illicit Or Recreational Drugs Have You Used? None Information not available 05/22/2015 Education 4 Year College Information not available 05/22/2015 When Did You Quit Smoking? 16+yearssin celastcigar ette Information not available 05/04/2022 How Many Days In The Past Year Have You Had A Heavy Drinking Consumption (4+ Female, 5+ Male)? 0 Information not available 05/22/2015 Live Alone Or With Others? Alone Information not available 10/03/2011 Patient Has Health Care Proxy Signed And In Chart Yes Information not available 05/22/2015 Marital Status Single Informatio n not available 10/03/2011 Mosquito Repellent Used Routinely No Information not available 06/21/2019 What Was The Date Of Your Most Recent Tobacco Screening? 01/01/2025 Information not available 01/01/2025 How Many Children Do You Have? 0 Information not available 05/22/2015 What Is Your Relationship Status? Single [email or web address] Information not available 04/29/2021 Seat Belts Used Routinely Yes Information not available 06/03/2011 Smoke Alarm In Home Yes Information not available 06/03/2011 At What Age Did You Start Smoking Tobacco? 21 [email or web address] Information not available 11/12/2013 How Much Tobacco Do You Smoke? No Information not available 06/21/2019 General Stress Level Medium Information not available 06/21/2019 How Many Years Have You Smoked Tobacco? 6 Information not available 06/21/2019 Sex: Female Functional Status Question Answer Note LastModified by Organizat ion Details LastModified Time Do you use any illicit or recreational drugs? No Information not available 05/04/2022 Do you or have you ever used any other forms of tobacco or nicotine? No [email or web address] Information not available 04/02/2024 Do you or have you ever used smokeless tobacco? Never used smokeless tobacco Information not available 06/21/2019 Are you currently employed? Yes [email or web address] Information not available 01/01/2025 What is your occupation? [employer] [email or web address] Information not available 01/01/2025 Do you or have you ever used e-cigarettes or vape? Never used electronic cigarettes Information not available 06/21/2019 Mental Status None recorded. Family History Relationship Description Onset Age of this Age Resolved Age Notes LastModified by Organization Details LastModified Time Mother Malignant neoplastic disease 86 88 pancre atic slevking Not available 05/06/2023 11:47:13 Brother Diabetes mellitus 60 Clarisa : hx hard drugs slevking Not available 01/01/2025 14:27:28 Brother Cerebrovascu lar accident 56 Germán: Factor II mutati on P slevking Not available 04/02/2024 12:05:01 Brother Carotid artery stenosis Sam, smoker slevking Not available 05/06/2023 11:51:15 Brother Essential hypertension eerickson Not available 11/2014 09:51:25 Brother Unrelated Germán: physic clara slevking Not available 01/01/2025 14:27:45 Brother Myocardial infarction 48 Riley : artist LCA, ? factor II slevking Not available 05/06/2023 11:50:28 Brother Hyperlipidem ia slevking Not available 2022 11:48:53 Brother Hyperlipidem ia slevking Not available 2022 11:48:58 Brother Diabetes mellitus Sam - ? hard drug hx slevking Not available 01/01/2025 14:27:38 Brother Obstructive sleep apnea syndrome Clarisa and Sam, and DM slevking Not available 01/01/2025 14:29:03 Brother Malignant neoplasm of prostate Germán slevking Not available 2023 12:05:10 Brother Metastatic malignant neoplasm 70 Germán - prosta te to bone slevking Not available 01/01/2025 14:28:39 Father Cerebrovascu lar accident 52 52 Factor II mutati on P slevking Not available 05/06/2023 11:49:20 Father Myocardial infarction 52 slevking Not available 01/01 14:27:05 Brother Essential hypertension eerickson Not available 11/2014 09:51:25 Brother Hyperlipidem ia eerickson Not available 2014 09:51:25 Brother Essential hypertension eerickson Not available 11/2014 09:51:25 Sister Hyperlipidem ia eerickson Not available 2014 09:51:25 Sister Retinal detachment Marylo u - PATHOLOGIST ASSISTANT slevking Not available 01/01/2025 14:29:24 Sister Rheumatoid arthritis slevking Not available 2022 11:48:07 Sister Essential hypertension slevking Not available 11:50:48 Notes:3 girls, 4 boys sibs N o breast or colon ca Medical History Condition Response INFECTIOUS DISEASE GASTROINTESTINAL Y psoriasis Y RHEUMATOLOGIC Y Gynecological History Statement/Question Response Date of LMP 03/01/2015 Frequency of Cycle (Q days) 28 Menses Monthly N Hysterectomy N Current Control Method Menopause Age at Menarche 9 Obstetrics History GPAL:G 1 P 0 0 1 0 Type Value Ectopics 1 Total 1 Immunizations Vaccine Type Date Status Note Provider Nam e and Address Organization Details Recorded Time Td(adult) unspecified formulation 3 completed Not Available [facility] 10/06/2022 05:45:33 Influenza, split virus, trivalent, preservative 1 completed Not Available [facility] 08/04/2019 02:18:13 influenza, unspecified formulation 7 completed Not Available [facility] 10/06/2022 05:45:33 influenza, unspecified formulation 8 completed Not Available [facility] 10/06/2022 05:45:33 Influenza, split virus, trivalent, preservative 2 completed Not Available [facility] 08/04/2019 02:18:35 Influenza, split virus, trivalent, preservative 9 completed Not Available [facility] 08/04/2019 02:17:26 Influenza, split virus, trivalent, PF 3 completed Not Available [facility] 08/04/2019 02:28:18 Influenza, split virus, quadrivalent, PF 4 completed Not Available [facility] 08/04/2019 02:19:21 Influenza, split virus, quadrivalent, PF 5 completed Not Available [facility] 08/04/2019 02:29:50 pneumococcal polysaccharide PPV23 5 completed Not Available [facility] 08/04/2019 02:32:26 Influenza, split virus, quadrivalent, PF 6 completed Not Available [facility] 08/04/2019 02:25:33 Influenza, split virus, quadrivalent, PF 7 completed Not Available [facility] 08/04/2019 02:33:01 Influenza, split virus, quadrivalent, PF 8 completed Not Available [facility] 08/04/2019 02:29:52 Influenza, split virus, quadrivalent, PF 9 completed Not Available [facility] 08/04/2019 02:33:36 Influenza, split virus, quadrivalent, PF 0 completed Anne Rizzo LPN [facility] 04/16/2020 09:58:41 Pneumococcal conjugate PCV 13 1 completed Sienna Edmonds LPN null, [facility] 01/28/2021 15:21:42 Influenza, split virus, quadrivalent, PF 1 completed Payton Best D.O. [address] [place] [address], [address], [facility] 04/29/2021 08:24:54 Tdap 1 completed Payton Best D.O. [address] [place] [address], [address], [facility] 04/29/2021 08:24:54 MMR 1 completed Escobar Gomez RN null, [facility] 07/06/2021 10:49:54 Influenza, split virus, quadrivalent, PF 2 completed BRENNON Sainz-C [address] [place] [address], [address], [facility] 05/04/2022 13:36:41 Influenza, split virus, trivalent, preservative 0 completed Not Available [facility] 08/04/2019 02:32:23 Tdap 0 completed Not Available [facility] 08/04/2019 02:24:39 COVID-19, mRNA, LNP-S, PF, 100 mcg/0.5mL dose or 50 mcg/0.25mL dose 1 completed Not Available [facility] 10/06/2022 05:45:33 COVID-19, mRNA, LNP-S, PF, 100 mcg/0.5mL dose or 50 mcg/0.25mL dose 1 completed Not Available [facility] 10/06/2022 05:45:33 Influenza, split virus, trivalent, PF 4 completed BALTA Dow NP [address] [place] [address], [phone], [facility] 04/02/2024 11:55:39 Hep B, unspecified formulation 2 completed Not Available [facility] 10/06/2022 05:45:33 Hep B, unspecified formulation 2 completed Not Available [facility] 10/06/2022 05:45:33 Hep B, unspecified formulation 2 completed Not Available [facility] 10/06/2022 05:45:33 DTP 4 completed Not Available [facility] 10/06/2022 05:45:33 DTP 5 completed Not Available [facility] 10/06/2022 05:45:33 DTP 5 completed Not Available [facility] 10/06/2022 05:45:33 DTP 6 completed Not Available [facility] 10/06/2022 05:45:33 DTP 8 completed Not Available [facility] 10/06/2022 05:45:33 Vaccinia (smallpox, mpox), live 6 completed Not Available [facility] 10/06/2022 05:45:33 measles 8 completed Not Available [facility] 10/06/2022 05:45:33 rubella 8 completed Not Available [facility] 10/06/2022 05:45:33 mumps 1 completed Not Available [facility] 10/06/2022 05:45:33 polio, unspecified formulation 3 completed Not Available [facility] 10/06/2022 05:45:33 polio, unspecified formulation 4 completed Not Available [facility] 10/06/2022 05:45:33 polio, unspecified formulation 5 completed Not Available [facility] 10/06/2022 05:45:33 polio, unspecified formulation 6 completed Not Available [facility] 10/06/2022 05:45:33 polio, unspecified formulation 7 completed Not Available [facility] 10/06/2022 05:45:33 polio, unspecified formulation 8 completed Not Available [facility] 10/06/2022 05:45:33 polio, unspecified formulation 3 completed Not Available [facility] 10/06/2022 05:45:33 COVID-19, mRNA, LNP-S, PF, 100 mcg/0.5mL dose or 50 mcg/0.25mL dose 1 completed Not Available [facility] 10/06/2022 05:45:33 COVID-19, mRNA, LNP-S, PF, 100 mcg/0.5mL dose or 50 mcg/0.25mL dose 2 completed Not Available [facility] 10/06/2022 05:45:33 SARS-COV-2 (COVID-19) vaccine, UNSPECIFIED 3 completed SHERLYN Calderón [facility] 04/20/2023 08:32:26 influenza, unspecified formulation 3 completed SHERLYN Calderón [facility] 04/20/2023 08:33:12 zoster recombinant 3 completed [facility] 07/03/2024 09:01:14 zoster recombinant 4 completed [facility] 07/03/2024 09:01:29 Past Encounters Encounter ID Performer Location Encounter Start Date Encounter Closed Date Diagnosis/Indication Diagnosis SNOMED-CT Code Diagnosis ICD10 Code Diagnosis Note [id number] [facility] [address] [place] [address] 01/13/2001 15:30:00 08/07/2008 02:02:29 [id number] Jazz Mesa M.D . , [facility], [address] [place] [address] 01/13/2001 14:45:00 08/07/2008 02:02:29 [id number] Alec Cope III, MD , [facility], [address] [place] [address] 06/10/2001 14:15:00 08/07/2008 02:02:29 [id number] MISTY Giron , [facility], [address] [place] [address] 06/16/2001 10:30:00 08/07/2008 02:02:29 [id number] [facility] , [address] [address] 06/16/2001 15:00:00 08/07/2008 02:02:29 [id number] [facility] , [facility] [address] [place] [address] 06/20/2001 15:00:00 08/07/2008 02:02:29 [id number] Sam Andrade MD , [facility], [facility] [address] [place] [address] 08/19/2001 14:45:00 08/07/2008 02:02:29 [id number] Cira corrales, PT Physical Therapy, [address] [address] 08/31/2001 13:30:00 08/07/2008 02:02:29 [id number] Cira corrales, PT Physical Therapy, [address] [address] 09/05/2001 14:30:00 08/07/2008 02:02:29 [id number] Cira corrales, PT Physical Therapy, [address] [address] 09/08/2001 09:00:00 08/07/2008 02:02:29 [id number] Cira corrales, PT Physical Therapy, [address] [address] 09/12/2001 14:00:00 08/07/2008 02:02:29 [id number] Cira corrales, PT Physical Therapy, [address] [address] 09/15/2001 08:30:00 08/07/2008 02:02:29 [id number] Cira corrales, PT Physical Therapy, [address] [address] 09/19/2001 11:00:00 08/07/2008 02:02:29 [id number] Cira corrales, PT Physical Therapy, [address] [address] 09/26/2001 12:30:00 08/07/2008 02:02:29 [id number] Cira corrales, PT Physical Therapy, [address] [address] 09/29/2001 08:30:00 08/07/2008 02:02:29 [id number] Cira corrales, PT Physical Therapy, [address] [address] 10/02/2001 07:00:00 08/07/2008 02:02:29 [id number] Cira corrales, PT Physical Therapy, [address] [address] 10/05/2001 10:00:00 08/07/2008 02:02:29 [id number] Jazz Mesa M.D . , [facility], [address] [place] [address] 10/10/2001 11:15:00 08/07/2008 02:02:29 [id number] Cira corrales, PT Physical Therapy, [address] [address] 10/10/2001 09:00:00 08/07/2008 02:02:29 [id number] [facility] , [address] [address] 10/10/2001 12:15:00 08/07/2008 02:02:29 [id number] Cira corrales, PT Physical Therapy, [address] [address] 10/13/2001 11:00:00 08/07/2008 02:02:29 [id number] MISTY Giron , [facility], [address] [place] [address] 10/17/2001 13:15:00 08/07/2008 02:02:29 [id number] Cira corrales, PT Physical Therapy, [address] [address] 10/20/2001 11:00:00 08/07/2008 02:02:29 [id number] Cira corrales, PT Physical Therapy, [address] [address] 10/26/2001 11:00:00 08/07/2008 02:02:29 [id number] Cira corrales, PT Physical Therapy, [address] [address] 11/14/2001 10:00:00 08/07/2008 02:02:29 [id number] Cira corrales, PT Physical Therapy, [address] [address] 11/21/2001 10:00:00 08/07/2008 02:02:29 [id number] Allan Brady. , [facility], [address] [place] [address] 10/30/2002 14:35:27 08/07/2008 02:02:29 [id number] Binh Frank i, PT Physical Therapy, [address] [address] 11/08/2002 15:29:21 08/07/2008 02:02:29 [id number] Binh Frank i, PT Physical Therapy, [address] [address] 11/19/2002 14:06:03 08/07/2008 02:02:29 [id number] MISTY Giron , [facility], [address] [place] [address] 02/14/2003 08:52:22 08/07/2008 02:02:29 [id number] [facility] [employer] [facility] , [address] [address] 6 02/14/2003 09:53:27 08/07/2008 02:02:29 [id number] Jazz Mesa M.D . , [facility], [address] [place] [address] 6 02/21/2003 10:47:09 08/07/2008 02:02:29 [id number] [facility] [address] [address] 02/21/2003 11:47:20 08/07/2008 02:02:29 [id number] MISTY Giron, [facility], [address] [place] [address] 6 03/15/2003 09:23:52 08/07/2008 02:02:29 [id number] [facility] - [address] [address] 6 04/05/2003 08:00:40 04/05/2003 08:00:43 [id number] Wing Colvin MD Radiology , [facility] [address] [place] [address] 04/16/2003 07:58:10 04/16/2003 13:40:55 [id number] [facility] INFORMATION OFFICER Radiology , [address] [address] 6 04/23/2003 07:41:35 04/24/2003 09:34:29 [id number] MISTY Giron, [facility], [address] [place] [address] 6 07/29/2003 11:52:39 07/29/2003 16:41:15 [id number] MISTY Giron, [facility], [address] [place] [address] 6 03/24/2004 09:27:42 03/25/2004 13:16:16 [id number] [facility] OFFICER Radiology , [address] [address] 6 03/26/2004 15:55:42 03/27/2004 09:06:15 [id number] [facility] - [address] [address] 6 04/06/2004 08:38:54 04/06/2004 08:38:59 [id number] [facility] Radiology , [address] [address] 6 03/31/2005 11:40:41 08/07/2008 02:02:[id number] [facility] , [address] [address] 6 03/31/2005 00:00:00 08/07/2008 02:02:29 [id number] MISTY Giron, [facility], [address] [place] [address] 6 04/06/2005 10:37:38 08/07/2008 02:02:29 [id number] [facility] Radiology , [address] [address] 6 04/12/2005 12:41:53 08/07/2008 02:02:29 [id number] [facility] Radiology , [address] [address] 6 04/12/2005 00:00:00 08/07/2008 02:02:29 [id number] Reagan Escalante, [facility], [address] [place] [address] 6 09/13/2005 14:29:49 09/13/2005 15:14:42 [id number] Cira corrales, PT Physical Therapy, [address] [address] 6 09/17/2005 11:56:32 08/07/2008 02:02:29 [id number] Ciranika corrales, PT Physical Therapy, [address] [address] 6 09/27/2005 08:10:17 08/07/2008 02:02:29 [id number] [facility] Radiology , [address] [address] 6 04/07/2006 14:07:39 08/07/2008 02:02:29 [id number] [facility] Radiology , [address] [address] 6 04/07/2006 00:00:00 08/07/2008 02:02:29 [id number] MISTY Giron, [facility], [address] [place] [address] 6 04/12/2006 10:40:17 08/07/2008 02:02:29 [id number] [facility] RAD[facility] Radiology , [address] [address] 6 05/03/2006 13:50:55 08/07/2008 02:02:29 [id number] [facility] [employer] [facility] , [address] [address] 05/03/2006 00:00:00 08/07/2008 02:02:29 [id number] MISTY Giron, [facility], [address] [place] [address] 6 05/03/2006 13:30:12 08/07/2008 02:02:29 [id number] MISTY Giron, [facility], [address] [place] [address] 6 05/26/2006 12:02:26 05/27/2006 11:30:49 [id number] MISTY Giron, [facility], [address] [place] [address] 6 10/11/2006 13:23:25 10/12/2006 16:48:06 [id number] [facility] Radiology , [address] [address] 6 10/11/2006 14:10:20 10/12/2006 09:11:03 [id number] [facility] Techn[facility] st Radiology , [address] [address] 6 10/11/2006 00:00:00 08/07/2008 02:02:29 [id number] Cira corrales, PT Physical Therapy, [address] [address] 10/18/2006 07:32:38 10/18/2006 15:45:00 [id number] Cira corrales, PT Physical Therapy, [address] [address] 10/25/2006 07:39:09 10/25/2006 15:04:24 [id number] Cira corrales, PT Physical Therapy, [address] [address] 6 11/08/2006 07:31:26 11/08/2006 16:17:05 [id number] MD SUNITHA Swann, [facility], [address] [place] [address] 01/28/2007 13:50:30 01/31/2007 16:48:50 [id number] [facility] Radiology , [address] [address] 6 04/25/2007 10:53:31 04/26/2007 09:27:[id number] [facility] , [address] [address] 6 04/25/2007 00:00:00 08/07/2008 02:02:29 [id number] MISTY Giron, [facility], [address] [place] [address] 6 06/12/2007 10:28:15 08/07/2008 02:02:29 [id number] [facility] - [address] [address] 6 06/13/2007 07:57:30 06/13/2007 07:57:38 [id number] MISTY Giron, [facility], [address] [place] [address] 6 08/31/2007 11:48:31 09/04/2007 09:37:05 [id number] [facility] [facility] [employer] OFFICER Radiology , [address] [address] 6 09/07/2007 15:53:42 09/08/2007 09:16:17 [id number] [facility] OFF[facility] Radiology , [facility] [address] [place] [address] 09/07/2007 00:00:00 08/07/2008 02:02:29 [id number] [facility] - [address] [address] 6 09/07/2007 08:28:53 09/07/2007 08:28:58 [id number] MISTY Giron, [facility], [address] [place] [address] 6 09/15/2007 12:06:13 08/07/2008 02:02:29 [id number] MISTY Giron, [facility], [address] [place] [address] 6 10/16/2007 14:53:45 08/07/2008 02:02:29 [id number] MISTY Giron, [facility], [address] [place] [address] 6 11/16/2007 09:01:11 11/20/2007 09:09:06 [id number] [facility] Radiology , [address] [address] 11/16/2007 09:44:09 11/17/2007 09:12:43 [id number] [facility] [employer] Radiology , [address] [address] 6 11/16/2007 00:00:00 08/07/2008 02:02:29 [id number] MISTY Giron, [facility], [address] [place] [address] 6 11/28/2007 15:10:08 08/07/2008 02:02:29 [id number] [facility] Radiology , [address] [address] 6 06/20/2008 09:51:30 06/21/2008 09:19:57 [id number] [facility] Radiology , [address] [address] 6 06/20/2008 00:00:00 08/07/2008 02:02:29 [id number] [facility] st Radiology , [facility] [address] [place] [address] 6 07/02/2008 12:44:48 07/03/2008 09:20:14 [id number] [facility] [employer] Radiology , [facility] [address] [place] [address] 6 07/02/2008 00:00:00 08/07/2008 02:02:29 [id number] MISTY Giron, [facility], [address] [place] [address] 6 07/02/2008 11:53:20 08/07/2008 02:02:29 [id number] MISTY Giron, [facility], [address] [place] [address] 6 07/02/2008 00:00:00 08/07/2008 02:02:29 [id number] MISTY Giron, [facility], [address] [place] [address] 6 02/27/2009 13:21:27 03/03/2009 14:22:46 [id number] [facility] [facility] [employer] OFFICER Radiology , [address] [address] 6 02/28/2009 10:10:09 03/05/2009 11:16:17 [id number] MISTY Giron, [facility], [address] [place] [address] 6 03/13/2009 14:14:46 03/18/2009 13:34:23 [id number] [facility] - [address] [address] 03/01/2009 10:10:37 03/01/2009 10:11:52 [id number] [facility] - [address] [address] 6 02/27/2009 14:27:14 02/27/2009 14:27:26 [id number] [facility] - [address] [address] 6 02/28/2009 09:15:09 02/28/2009 09:15:31 [id number] [facility] OFFICER Radiology , [address] [address] 02/28/2009 00:00:00 05/15/2009 02:00:52 [id number] [facility] - [facility] Bernardo [facility] [place] [address] 1 03/03/2009 16:02:27 03/03/2009 16:02:37 [id number] [facility] - [facility] [place] [address] 1 03/08/2009 10:06:25 03/08/2009 10:06:54 [id number] [facility] - [facility] Bernardo [facility] [place] [address] 1 03/12/2009 08:17:15 03/12/2009 08:17:24 [id number] [facility], CLARISA RAMOS MD [facility], [address] [address] 03/26/2009 09:51:45 03/27/2009 07:11:23 [id number] MISTY Giron, [facility], [address] [place] [address] 07/03/2009 09:58:27 07/07/2009 09:00:[id number] [facility] , [address] [place] [address] 04/30/2010 11:24:49 05/01/2010 11:16:18 [id number] MISTY Giron, [facility], [address] [place] [address] 05/15/2010 14:33:46 05/18/2010 12:50:09 [id number] [facility] Radiology , [address] [place] [address] 1 05/28/2010 10:08:44 06/01/2010 11:34:05 [id number] [facility] Radiology , [address] [place] [address] 1 05/28/2010 10:09:24 06/01/2010 11:34:13 [id number] Imer Rubio NP , [facility], OFFICE [address] [place] [address] [place] [address] 1 01/25/2011 12:59:18 01/25/2011 13:46:38 [id number] Kevin Salinas MD Rheumatol ogy, [address] [place] [address] 1 04/06/2011 08:51:29 04/12/2011 09:53:36 [id number] [facility] FP, [facility], OFFICE [address] [place] [address] [place] [address] 1 04/20/2011 06:31:33 04/20/2011 08:58:[id number] [facility] Radiology , [address] [place] [address] 1 06/02/2011 09:42:24 06/03/2011 11:30:08 [id number] Christian Crystal MD , [facility], [address]ICE [address] [place] [address] 1 09/11/2011 10:42:49 09/11/2011 11:10:32 [id number] Kalpana Mead MD , [facility], [address] [place] [address] 10/01/2011 13:41:52 10/05/2011 14:56:28 [id number] Kevin Salinas MD Rheumatol og, [address] [address] 1 12/06/2011 14:27:22 12/27/2011 08:10:08 [id number] Kevin Salinas MD Rheumatol og, [address] [address] 1 01/25/2012 09:44:23 01/25/2012 10:09:08 [id number] MISTY Giron, [facility], [address] [place] [address] 6 05/02/2012 11:57:02 05/02/2012 13:07:46 [id number] MISTY Giron , [facility], [address] [place] [address] 05/30/2012 14:50:44 06/01/2012 12:00:42 [id number] Messi Falcon MD Radiology , [address] [address] 1 06/16/2012 14:30:58 06/21/2012 08:37:50 [id number] Messi Falcon MD Radiology , [address] [address] 06/22/2012 09:14:03 06/26/2012 15:54:14 [id number] MD SUNITHA Burnett, [facility], [address] [place] [address] 6 05/14/2013 11:18:03 05/14/2013 12:37:05 Adult health examination [id number] see Risk Assessment and Lifestyle Change Counseling section above Generally healthy 48 yo with generally healthy lifestyle, though has risk factors of FH prothrombi n mutation 18731G and excess etoh consumptio n. Counseling [id number] Closed fra cture of ankle 53782527 November 2011 now fully healed, with a little aching from time to time. Abnormal c ervical Papanicolaou smear 772303120 pap every 2 years d/t hx abn glandular cells. Screening for malignant neoplasm of cervix 709365939 Influenza vaccine needed [id number] 106 Family his tory of malignant neoplasm of pancreas [id number] Family his tory of genetic disorder carrier [id number] Family hx Prothrombi n Gene Mutation 17888E. in brother and father both with CVA at early age. Heterozygo us carriers have 30 percent higher plasma prothrombi n levels than normals Pt's lipid panel in excellent control in 2011. Will continue annual lipid screeing d/t this risk factor, now that pt is menopausal and risk for her may change. Family his tory of stroke 169233547 brother and father age 52. Increased blood pressure 52897414 noted today only. Advised twice weekly bps and f/u in 1 mo to review these. Low sodium diet, exercise, wt mgmt., less etoh. Alcohol dependence 98483605 While limited per pt hx, pt does drink a moderate amt vodka daily. Advised to measure her consumptio n. Review at next ov. Obesity 631053412 encour aged wt mgmt with exercise, less etoh ,and improved diet. F/U in 6 mo. [id number] MISTY Giron, [facility], [address] [place] [address] 08/13/2013 08:24:42 08/13/2013 09:30:37 Elevated blood-pressure reading without diagnosis of hypertension 842746596 Essential hypertension 48762654 Not at goal per office and home readings. Pt highly motivated to control with exercise, diet and wt loss. To start HCTZ and f/u in 1 mo for bmp and review of home readings. Pain of sh oulder region 85101852 Neoplasm of skin 759323783 [id number] Estrella Shanks Physical [facility], [address] [address] 08/23/2013 10:36:55 08/24/2013 12:31:33 Disorder of tendon of shoulder region 31647926 Thoracic o utlet syndrome 851908697 [id number] Estrella Rimma [facility], [address] [address] 1 08/29/2013 08:55:53 08/31/2013 13:05:10 Disorder of tendon of shoulder region 80578705 Thoracic o utlet syndrome 975227883 [id number] Colrain Rimma [address] [address] 1 08/31/2013 12:59:54 09/01/2013 11:59:09 Disorder of tendon of shoulder region 82887873 Thoracic o utlet syndrome 505196091 [id number] Estrella Rimma [facility], [address] [address] 09/05/2013 10:31:20 09/06/2013 08:33:57 Disorder of tendon of shoulder region 86017844 Thoracic o utlet syndrome 865123174 [id number] MISTY Giron , [facility], [address] [place] [address] 09/06/2013 15:11:42 09/06/2013 15:48:06 Essential hypertension 04891729 Not at goal per office and home readings. Increase HCTZ to 25mg/d. Major depr essive disorder 791658753 [id number] Estrella Sahnks [address] [address] 09/11/2013 09:29:01 09/13/2013 08:13:32 Disorder of tendon of shoulder region 76808785 Thoracic o utlet syndrome 340943219 [id number] Estrella Shanks [address] [address] 09/26/2013 10:56:04 09/27/2013 09:52:58 Disorder of tendon of shoulder region 18133510 Thoracic o utlet syndrome 083607049 [id number] Estrella Rimma Physical [facility], [address] [place] [address] 1 10/02/2013 11:01:23 10/04/2013 11:57:01 Disorder of tendon of shoulder region 01949254 Thoracic o utlet syndrome 568229131 [id number] Estrella Rimma [facility], [address] [place] [address] 1 10/10/2013 08:58:56 10/11/2013 10:24:09 Disorder of tendon of shoulder region 64945104 Thoracic o utlet syndrome 220946181 Adult heal th examination [id number] MD SUNITHA Burnett, [facility], [address] [place] [address] 11/12/2013 14:47:12 11/12/2013 15:48:03 Allergic rhinitis 80543065 Rhinitis medicamentosa 17583367 d/c decongesta nt Upper resp iratory infection 19920193 Major depr essive disorder 303049189 feels better function since dose of zoloft decreased. Interested in reducing further. Essential hypertension 09662448 Not at goal per office and home readings. Continue HCTZ to 25mg/d. Add Lisinopril 2.5 mg [id number] MISTY Giron, [facility], [address] [place] [address] 02/11/2014 09:08:44 02/11/2014 09:50:21 Essential hypertension 73164172 Now at goal per office and home readings. Continue HCTZ to 25mg/d. and Lisinopril 2.5 mg Depressive disorder 92452275 has cut back to 1/2 tab Zoloft qod. Allergic rhinitis 01008342 takes loratadine daily. [id number] MISTY Giron, [facility], [address] [place] [address] 05/17/2014 09:06:00 05/17/2014 10:16:05 Adult health examination 499785937 Healthy, and feeling better than she has for years. see Risk Assessment and Lifestyle Change Counseling section above Counseling [id number] Essential hypertension 57807788 Now at goal per office and home readings. Continue HCTZ to 25mg/d and Lisinopril 2.5 mg Allergic rhinitis 51781159 takes loratadine daily. Obesity 813275274 encour aged wt mgmt with exercise, less etoh ,and improved diet. F/U in 6 mo. Major depr essive disorder 594544510 feels 12.5mg tab daily is perfect for her, feels better than she has for years. Microcalci fications of the breast 67390369 due to f/u L breast calcificat ions per radiologis t's request after 06/29 diagnostic study. Psoriasis 2078112 better control now, after a summer of lots of sun exposure than she can recall ever. Abnormal c ervical Papanicolaou smear 400472733 pap every 2 years d/t hx abn glandular cells. Alcohol dependence 08251541 Has limited her etoh to vodka 1-2 drinks daily after work, never more. Uses vodka to count of 4, with ice seltzer and cranberry jce in a big glass. Impaired f asting glycemia 196503504 Influenza vaccine needed 7801947105 106 Gastroesop hageal reflux disease 249682094 [id number] Kevin Salinas MD Rheumatol [facility], [facility] [address] [place] [address] 07/26/2014 08:47:37 08/05/2014 09:41:35 Pain of multiple joints 75532907 Mild psoriatic arthritis. There are inflammato ry symptoms especially hands and feet, some in the back, but there are no findings of actual synovitis today and no suggestion of chronic deformity from PsArth. 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 We need to update labs on the sulfasalaz ine, continue. She does have a complaint of left wrist pain which I think is more likely a ligamental strain. She should wear a wrist brace when playing softball, seek orthopedic opinion if it persists. Psoriasis has improved with sun exposure. She uses Dovonex. Osteoarthr itis of joint of hand 53921050 rhina osteoarthr itis, not symptomati c. Long-term drug therapy 146001634 on long-term sulfasalaz ine. She is overdue for follow-up labs. [id number] MISTY Giron , [facility], [address] [place] [address] 11/12/2014 07:55:50 11/12/2014 09:01:48 Benign essential hypertension 6305226 Blood pressure NOT at goal at this visit and consistent ly elevated at home. Continue HCTZ 25mg/d and incr Lisinopril to 5mg/d Bereavement 23781594 noemi y difficult to have lost this sibling at such a young age. Increase dose of sertraline to 25mg/d. Discussed approaches to coping. F/u in 1 mo. will continue to increase antidepres vernon Zoloft as needed. Impaired f asting glycemia 316565572 discussed wt loss , attn. to cho's. Menopausal flushing 537127326 persistant , may improve with increased dose of sertraline . LMP 07/22/14 Alcohol dependence 21267380 Back to drinking more since brother's . Prob contributi ng to her severe depression . [id number] Scarlett Hare, RDN, LDN, [facility] Nutrition -[facility] [address] [place] [address] 01/07/2015 08:02:26 01/22/2015 11:50:28 Impaired fasting glycemia 618436591 Obesity 595330111 Essential hypertension 80346803 [id number] Breanna Frias NP FP, [facility], OFFICE [address] [place] [address] 02/03/2015 10:16:36 02/03/2015 10:51:23 Fever 155468627 Cough 28634763 [id number] MISTY Giron, [facility], [address] [place] [address] 02/24/2015 13:46:05 02/24/2015 14:45:06 Pneumonia 606210380 persistant cough and SOB in steroid sensitive pt. Inadequate resolution of symptoms now almost 3 wks since onset/admi ssion. Continue albuterol 2 puffs 3-4 x/day. Add Flovent 110: discussed risks and benefits in detail with pt. To let us know if side effects develop. Anemia 569538190 noted i n hospital without known cause. Repeat these tests to verify and look for cause. Lymphadenopathy 10293365 AC node on L [id number] MISTY Giron, [facility], [address] [place] [address] 03/21/2015 08:48:27 03/21/2015 10:07:14 Screening for malignant neoplasm of colon 217209530 Microscopic colitis 583837799 strictly lactose intolerant Bacterial pneumonia 62288624 with persistant cough, but feeling better and stronger regularly. Due for f/u CXR to assess resolution . Electrocar diogram abnormal 873702719 sister concerned about this. Youngest bro of massive L cor art [place]. Allergic rhinitis 55751211 takes dwayne daily and flonase [id number] Elton Leger MD [facility], [facility] [address] [place] [address] 05/06/2015 09:55:59 05/06/2015 13:31:18 [id number] Brittany Daly MD , [facility], [address] [place] [address] 05/22/2015 09:08:21 05/22/2015 10:20:51 Adult health examination 345893942 Z00.00 Generally improved health. see Risk Assessment and Lifestyle Change Counseling section above Counseling 800027516 Z71 .9 Benign ess ential hypertension 8337677 I10 Blood pressure at goal Continue lisinopril . Screening for disorder 045025328 Z72.89 Gastroesop hageal reflux disease 269495342 K21.9 stable Cough 77307884 R05 persists since pneumonia, but steadily improving. But with significan t SOB with simply walking now 3 1/2 mo after dx of pneumonia in non smoker w/o hx of asthma orother resp illness. Obtain PTS and continue allergy and asthma tx . F/U in 1 mo. Bereavement 20061213 F33 .9 Z63.4 Zoloft started for bereavemen t now very helpful with MDD a longstandi ng problem. Continue this dose of zoloft for the year. Reviewe Active or passive immunization 325642013 Z23 Administra tion of pneumococcal vaccine 77582811 Z23 [id number] Kevin Salinas MD Rheumatol martin, [facility] [address] [facility] [place] [address] 07/31/2015 08:50:18 07/31/2015 11:00:12 Pain of multiple joints 48508217 M25.50 Mild inflammato ry arthritis, probably psoriatic arthritis. There are inflammato ry symptoms especially hands and feet, but there are no findings of actual synovitis today and no suggestion of chronic deformity from PsArth. 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 Recently, sl more prominent symptoms. We can try adding low dose NSAID. Try diclofenac 50 bid. Continue omperazole . Labs in Apr all OK on SSZ. Long-term drug therapy 016641364 Z79.899 on long-term sulfasalaz ine. Recent labs [place]. [id number] Jose R Kothari, OD [facility], [address] [address] 01/16/2016 14:04:50 01/16/2016 15:06:46 Seasonal allergic conjunctivitis 472431359 H10.13 Red eye 021106835 H11.43 3 Pain of eye structure 30 4806572 H57.12 [id number] Payton Best D.O. , [facility], OFFICE [address] [place] [address] 01/21/2016 09:56:37 01/21/2016 10:35:35 Gastroesophageal reflux disease 688165689 K21.9 Doing well off PPI will monitor Lymphadenopathy 15180530 R59.0 ? Enlarged parotid on the R will send for US, will contct with results [id number] Kevin Salinas MD Rheumatol martin, [address] [address] 01/28/2016 08:57:24 01/28/2016 09:23:49 Pain of multiple joints 97951022 M25.50 Probably psoriatic arthritis. She has been on SSZ, currently at just 1g daily, for about 4 years. Tolerating very well. I suspect it might be helping her microscop ic colitis as well. Should continue. No change in treatment needed. Return 1 year, or sooner if needed. [id number] Payton Best D.O. SUNITHA, [facility], OFFICE [address] [place] [address] 05/26/2016 07:54:15 05/26/2016 08:55:55 Adult health examination 023921997 Z00.00 See Risk Assessment and Lifestyle Change Counseling section above Counseling 866749014 Z71 .9 Benign ess ential hypertension 2405731 I10 Blood pressure at goal, no change to meds. Screening mammography 24 306244 Z12.31 Screening for malignant neoplasm of cervix 143288504 Z12.4 Active or passive immunization 930073143 Z23 [id number] Payton Best D.O. SUNITHA, [facility], OFFICE [address] [facility] [place] [address] 1 12/14/2016 08:43:19 12/14/2016 09:26:31 Benign essential hypertension [id number] I10 Blood pressure at goal. Allergic rhinitis 456393 04 J30.9 RX refilled Major depr essive disorder [id number] F32.9 Mood is stable on current medication . Obesity 701309275 E66.9 BMI is 38Interest ed in weight loss SMA. Impaired f asting glycemia 255723595 R73.01 Has FBS of 102Discuss ed risk of progressio n to diabetes, strategies for prevention . [id number] Kevin Salinas MD Rheumatol martin, [facility] [address] [place] [address] 01/27/2017 08:36:10 01/27/2017 09:11:38 Pain of multiple joints [id number] M25.50 Probably psoriatic arthritis. She has been on SSZ, currently at just 1g daily, for about 4 years. Tolerating very well. Really, no sign of active synovitis etc today.On occasion could take more SSZ for increased joint pain. I suspect it might be helping her microscop ic colitis as well. Had labs, but not CBC. Should get CBC next lab draw. Return 1 year, or sooner if needed. Microscopic colitis 2357 03756 K52.839 No sxs. On SSZ for arthritis. I suspect it might be helping her microscop ic colitis as well. Gastroesop hageal reflux disease 588185665 K21.9 Taking occasional omeprazole . Could try switching to ranitidine . [id number] Payton Best D.O. SUNITHA, [facility], OFFICE [address] [place] [address] 05/31/2017 08:48:49 05/31/2017 09:50:36 Adult health examination 451363100 Z00.00 see Risk Assessment and Lifestyle Change Counseling section above Counseling 534758068 Z71 .9 Benign ess ential hypertension 8123624 I10 Blood pressure at goalReturn to office for fasting labs. Active or passive immunization 890804427 Z23 Major depr ession, melancholic type 666943896 F32.9 Stable on very low-dose sertraline . Skin lesion 98614503 L98 .9 We will refer to dermatolog y. [id number] Payton Best D.O. , [facility], OFFICE [address] [place] [address] 06/23/2017 14:05:59 06/23/2017 15:03:39 Epidermoid cyst of skin 264762464 L72.0 Tender nodule over PIP joint in the location of prior small thornbush puncture wound.Like ly inflammato ry cyst, less likely infectious process. Advised cold compresses , elevation for comfort.Lo w threshold for initiating Abx for any worsening or failure to improve over the weekend. [id number] Payton Best D.O. , [facility], OFFICE [address] [facility] [place] [address] 11/28/2017 08:52:17 11/28/2017 09:14:23 Essential hypertension 19424494 I10 Blood pressure is at goal of less than 140/90. Obesity 818702363 E66.9 BMI is 38.8FBS is down to 98, has hx of IGT, continue to monitor Allergic rhinitis 833852 04 J30.9 Seasonal component uses nasal steroid Major depr essive disorder 691544731 F32.9 Mood is stable on current medication . [id number] Kevin Salinas MD Rheumatol martin, [facility] [address] [place] [address] 02/06/2018 14:20:47 02/06/2018 14:47:50 Pain of multiple joints 14718599 M25.50 Probably psoriatic arthritis. She has been on SSZ, currently at just 1g daily, for about 4 years. Tolerating very well. Really, no sign of active synovitis etc today.On occasion could take more SSZ for increased joint pain. I suspect it might be helping her microscop ic colitis as well. Reviewed labs from Nov, 2017. All OK. Return 1 year, or sooner if needed. [id number] Payton Best D.O. , [facility], OFFICE [address] [place] [address] 05/17/2018 09:49:55 05/17/2018 10:26:49 Active or passive immunization 842341357 Z23 Ankle pain 210867080 M25 .572 L ankle strain approximat soni 4 weeks ago, still with significan t discomfort . We will send for x-ray. If x-rays negative for fracture, refer to PT.Annette to call patient with results on mobile and leave detailed message. [id number] Payton Best D.O. , [facility], OFFICE [address] [facility] [place] [address] 06/15/2018 07:48:13 06/15/2018 08:39:02 Adult health examination 439100002 Z00.00 see Risk Assessment and Lifestyle Change Counseling section above Counseling 098084046 Z71 .9 Depression screening 171 816115 Z13.89 depression screening tool administer ed, entered into emr, scored and discussed, time greater than 7.5 minutesPHQ - 9 is 0/27 Benign ess ential hypertension 2640350 I10 Blood pressure at goal <150/90 Screening mammography 24 187426 Z12.31 Alcohol dependence 61707 003 F10.20 Discussed reducing alcohol intake by 50%. We also discussed that this may help with her goals of weight loss. Major depr essive disorder 371819378 F32.9 Mood is stable on current medication . Obesity 939412512 E66.9 BMI is 38.6Has a personal goal of 10-20 pounds of weight loss over the next year. [id number] Nish Cobb, [facility], OFFICE [address] [facility] [place] [address] 12/05/2018 09:53:01 12/05/2018 10:21:33 Major depressive disorder 635234119 F32.9 Mood is stable on current medication . Impaired g lucose tolerance 6389250 R73.03 Fasting blood sugar is 104. Stable. Has good awareness of dietary recommenda tions. We did discuss that alcohol intake is likely contributi ng to her elevated blood sugars. Essential hypertension 22969512 I10 Blood pressure is at goal of less than 140/90. Alcohol in take above recommended sensible limits 227183574 F10.10 Has good awareness of her intake. See above. [id number] Iraida Monson NP Rheumatol martin, [address] [place] [address] 02/06/2019 08:45:27 02/06/2019 09:21:22 Pain of multiple joints 24119730 M25.50 Probably psoriatic arthritis. She has been on SSZ, currently at just 1g daily (and more recently 1 g bid) for about 5 years. Tolerating very well. Really, no sign of active synovitis etc today.I suspect it might be helping her microscop ic colitis as well. Return 1 year, or sooner if needed. Trochanter ic bursitis of left hip 1471276987 61687 M70.62 Findings suggest L trochanter ic bursitis. Ordinarily I would suggest steroid injection. However on 2 prior occasion had prominent psychiatri c issues precipitat ed by steroid injection (steroid psychosis) . Refer to PT. Bilateral knee pain 1187 813228 1493509 M25.561 M25.562 Knee sxs localize as P-F pain, though + Noemi's on L .Suspect early DJD.Check x ray, instructed in quadriceps strengthen ing. Encouraged weight loss. Pain in right foot 26746 49077 79251 M79.671 Sl swelling and tenderness at base R 5th MT.Check x ray.Can't do steroid injection (rxn). Consider podiatry consult. [id number] Karime Krueger MD , [facility], OFFICE [address] [facility] [place] [address] 05/16/2019 07:17:56 05/16/2019 09:37:23 Active or passive immunization 141139097 Z23 [id number] Nara Larios D.O. , [facility], OFFICE [address] [facility] [place] [address] 06/21/2019 10:55:34 06/21/2019 12:02:12 Adult health examination 185911122 Z00.00 HM: Pap todaylabs utdcolo 04/2015Mam mo 06/2018 Counseling 465954157 Z71 .9 Depression screening 171 184203 Z13.89 2 out of 27depressi on screening tool administer ed, entered into emr, scored and discussed, time greater than 7.5 minutes Essential hypertension 99174627 I10 BP at goal < 140/90c/w medsBMP utd Morbid obesity 236622011 E66.01 BMI 39 with htn, IFG, strong family hx of CAD/DMdisc ussed importance /impact of weight losswill increase exercise- will refer to prescribe the Y Allergic rhinitis 854190 04 J30.9 stabletake s loratadine Gastroesop hageal reflux disease 781115449 K21.9 stableon ranitidine 150 mg bid Impaired f asting glycemia 592715590 R73.01 FBS 117- increasing past few yearsstron g family hx of CAD, DMdiscusse d lifestyle management - feels she can increase her exercise. Discussed Prescribe the Y- will refer- prefers swimmingwi ll start low dose Metformin ER 500 mg once dayrepeat labs 3 months and OV with Dr. Best Screening for malignant neoplasm of cervix 931624433 Z12.4 [id number] Payton Best D.O. , [facility], OFFICE [address] [facility] [place] [address] 09/18/2019 09:56:47 09/18/2019 10:31:39 Essential hypertension 38989167 I10 Blood pressure is at goal of less than 130/80. Impaired f asting glycemia 782473208 R73.01 A1C is 5.8%Goal would be <5.7%Stand ing order entered for every six-month A1c.Congra tulated on dietary and lifestyle changes. Major depr essive disorder 133436143 F32.9 Mood is stable on current medication . Psoriasis 6978104 L40.9 On SSZ for arthritis with Dr. Salinas [id number] MD SUNITHA Jones, [facility], OFFICE [address] [facility] [place] [address] 04/16/2020 06:55:08 04/16/2020 10:11:09 Active or passive immunization 402419438 Z23 [id number] Kevin Salinas MD Rheumatol martin, [facility] [address] [facility] [place] [address] 05/02/2020 10:24:34 05/05/2020 07:08:28 Pain of multiple joints 59129996 M25.50 Probably mild inflammato ry polyarthri tis, possibly psoriatic arthritis. She has been on SSZ, currently at 1g bid. Tolerating very well. She feels as if this medication is very helpful.I suspect it might be helping her microscop ic colitis as well. She also had rhina OA fingers, and this probably accounts for current finger sxs.Discus sed options.Tr y topical diclofenac . Return 6 mo (Dr Escalante), or sooner if needed. Osteoarthr itis of joint of hand 50545771 M19.049 rhina osteoarthr itis, more symptomati c lately [id number] Payton Best D.O. , [facility], OFFICE [address] [facility] [place] [address] 08/19/2020 09:35:48 08/19/2020 12:44:10 Essential hypertension 58249034 I10 Blood pressure is a bit elevated today. She will check periodical ly at home make sure it is at goal less than 130/80 Impaired f asting glycemia 559554329 R73.01 A1C is 5.8%Goal would be <5.7%Stand ing order entered for every six-month A1c. Major depr essive disorder 931556517 F32.9 Mood is stable on current medication . Screening mammography 24 106891 Z12.31 [id number] Yoel Escalante MD Rheumatol og, [address] [place] [address] 10/22/2020 08:30:43 10/22/2020 18:55:37 Pain of multiple joints 28056300 M25.50 Patient was treated for possible psoriatic arthritis. Has a history of psoriasis and microscopi c colitis. Continue SSZ for now. Check labs and imaging. Naproxen for 10 days after labs drawn and reassess. Patient cannot tolerate steroids. Osteoarthr itis of joint of hand 16082303 M19.049 rhina osteoarthr itis. Hold diclofenac gel while on naproxen, [id number] Yoel Escalante MD Rheumatol martin, [facility] [address] [facility] [place] [address] 11/26/2020 09:57:35 11/26/2020 18:57:17 Pain of multiple joints 01990946 M25.50 Likely psoriatic arthritis. Has a history of psoriasis and microscopi c colitis. Uncontroll ed with moderate disease activity and high inflammato ry markers. Continue SSZ and take it 2 tablets twice a day as patient was only taking it 2 tablets daily. 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 Check labs before next visit. Reassess in 2 months. Osteoarthr itis of joint of hand 83155032 M19.049 rhina osteoarthr itis. Patient did not want occupation al therapy for now. Paraffin therapy at home. Psoriasis 5554536 L40.9 Under control for now. [id number] Yoel Escalante MD Rheumatol [facility], [address] [place] [address] 01/28/2021 13:16:35 02/09/2021 06:31:48 Pain of multiple joints 86132043 M25.50 Likely psoriatic arthritis. Has a history of psoriasis and microscopi c colitis. Uncontroll ed with moderate disease activity and high inflammato ry markers.Wi ll add Humira.Ilya g term complicati ons of PSA discussed with patient, including CVD. Check labs before next visit.Arra nge for PCV-13.Pat ient got the COVID vaccine.Re assess in 4 months. Side effects of Humira discussed with the patient, including but not limited to: injection site reactions, increased incidence of usual infections , serious infections (like TB), malignanci es, allergic reaction, demyelinat ing disease, heart failure, lupus-like syndrome, cytopenias . Patient counselled to stop the medication if fever or any other sign of infection and call his PCP or our office right away. Patient instructed not to have any live vaccines. Patient verbalized understand ing. Osteoarthr itis of joint of hand 01598897 M19.049 rhina osteoarthr itis. Patient did not want occupation al therapy for now. Paraffin therapy at home. Psoriasis 5969269 L40.9 Under control for now. [id number] Yoel Escalante MD Rheumatol ogmack, [address] [place] [address] 02/25/2021 16:05:32 03/20/2021 06:35:22 Pain of multiple joints 10922243 M25.50 Likely psoriatic arthritis. Has a history of psoriasis and microscopi c colitis. Uncontroll ed with moderate disease activity and high inflammato ry markers.Wi ll add Humira.Ilya g term complicati ons of PSA discussed with patient, including CVD. Check labs before next visit.Arra nge for PCV-13.Pat ient got the COVID vaccine.Re assess in 4 months. Side effects of Humira discussed with the patient, including but not limited to: injection site reactions, increased incidence of usual infections , serious infections (like TB), malignanci es, allergic reaction, demyelinat ing disease, heart failure, lupus-like syndrome, cytopenias . Patient counselled to stop the medication if fever or any other sign of infection and call his PCP or our office right away. Patient instructed not to have any live vaccines. Patient verbalized understand ing. [id number] Payton Best D.O. , [facility], OFFICE [address] [place] [address] 04/29/2021 08:02:11 04/29/2021 08:41:26 Adult health examination 621556689 Z00.00 Counseling 695118093 Z71 .9 Next colonoscop y due 2024Pap due 2023UTD with mammogram Depression screening 171 109682 Z13.31 depression screening tool administer ed, entered into emr, scored and discussed, time greater than 7.5 minutes Screening for alcohol abuse 161348160 Z13.39 Has cut down on intake Essential hypertension 06578892 I10 BP is at goal Active or passive immunization 643535089 Z23 Pain of mu ltiple joints 57457136 M25.50 Unfortunat soni unable to get sulfasalaz ine at this timeFollow ed by rheumatolo amanda on Humira. [id number] Yoel Escalante MD Rheumatol [facility], [facility] [address] [place] [address] 07/30/2021 14:37:02 07/30/2021 16:10:45 Pain of multiple joints 07803488 M25.50 Likely psoriatic arthritis. Has a history of psoriasis and microscopi c colitis.Im provement in hands symptoms with Humira. Check labs.If elevated inflamamto ry markers will reassess treatment. Continue Humira and SSZ for now. 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 Check labs before next visit.Erendira ent got the flu shot, PCV-13 and the COVID booster.RT C in 4 months or sooner of needed Long-term drug therapy 267499675 Z79.899 On SSZ and Humira.Mon itor labs.If fever or any signs of infection, patient to hold Humira and SSZ. [id number] Sabra Williamson MD , [facility], OFFICE [address] [facility] [place] [address] 07/06/2021 10:39:11 07/06/2021 12:25:02 Active or passive immunization 183823165 Z23 [id number] Yoel Escalante MD Rheumatol martin, [facility] [address] [facility] [place] [address] 09/22/2021 11:22:00 09/25/2021 11:28:27 Pain of multiple joints 03483680 M25.50 Likely psoriatic arthritis. Has a history of psoriasis, lactose intoleranc e, and microscopi c colitis.To day patient states that she cabello snot think that Humira is helping. Continue SSZ. D/C Humira.Sta rt Otezla. Wean down advil as patient restarted it. [facility] complicati ons of PSA previously discussed with patient, including CVD. Patient got the flu shot, PCV-13 and the COVID series. 4th dose/boost er discussed with patient. Check labs before next visit.RTC in 4 months or sooner of needed Side effects of Otezla discussed with the patient, including but not limited to: diarrhea, nausea, and vomiting, weight loss, depression . Patient counselled to report to their PCP or our office the emergence or worsening of depression , suicidal thoughts or other mood changes. Patient verbalized understand ingFlorin t states that she does not really have depression but it was grief after the loss of her brother and if any change in her symptoms, she will call office immediatel y. Long-term drug therapy 604285348 Z79.899 On SSZ.Otezla started today.Mónica tor labs.If fever or any signs of infection, patient to hold SSZ.If any signs of depression , patient to contact office. Intoleranc e to lactose 035605304 E73.9 Her symptoms improved after she stopped lactose in her diet. [id number] MD SUNITHA Noyola, [facility], OFFICE [address] [facility] [place] [address] 10/27/2021 08:32:40 10/27/2021 09:07:56 Essential hypertension 72104972 I10 Stable, BP at goal <130/80. Continues on lisinopril and HCTZ, BMP UTD.Contin ue self-care, efforts to increase activity and lose weight, recommend low-salt diet. Consider home BP monitoring .DM visit q6 mos, f/u sooner PRN. Major depr essive disorder 610911845 F32.0 Mild depressive symptoms vs grief response after the loss of her brother. Currently in remission, PHQ-9 . Continues on low-dose sertraline with good effect.Dis cussed that the best outcomes, with lowest chance of remission occurs with a combinatio n of medication , counseling and good self-care: healthy eating, adequate sleep, avoiding negative psychoacti ve substances [like alcohol, caffeine] and regular exercise. Prediabetes 413467126 R7 3.03 A1c 6.1, up from 5.7. FBG also trending upward 95>>104>>1 07>>110. Discussed implicatio ns of increasing insulin resistance and likely progressio n to T2DM.Offer ed RD referral, declined for now.Would like to try metformin again, caused GI side effects previously - abdominal cramping and diarrhea. Risks/bene fits/side effects reviewed. Will resume low dose, recommend taking at bedtime to minimize SE experience .Could consider Ozempic/We govy as an alternativ e which may also help with weight loss, she will consider.C ontinue weight loss efforts, avoid simple carbs and concentrat ed sweets.Dec lined close f/u, will update me via the portal in 2-3 months and f/u PRN. DM visit in 6 mos. Pelvic hematoma 32129279 8 N94.89 Recent injury resulting in pelvic hematoma. Up until very recently walking with a cane. Continue rest as needed and other supportive measures. F/u PRN worsening sx or failure to improve. Psoriatic arthritis 1563 55008 L40.50 Elevated inflammato ry markers noted. Recently completed Otezla starter pack, pharmacy issue in getting ongoing script filled, message sent to jonny patel office to see if we can rectify this.Sia nue SSZ.Humira ineffectiv e so this was stopped.Fo llowed by jonny gy (Dr Escalante) Morbid obesity 472971350 E66.01 Z68.39 BMI 39.7. We discussed ways to help with weight: resume regular exercise, think about where she can improve in diet. Consider Weight Watchers or our Shared Medical Appointmen ts here for weight loss (10wk program).E xercise recently limited by pelvic hematoma but this is improving. Plan for trial of metformin, could consider Wegovy which may help with weight loss but pt prefers to avoid injections at this time. [id number] Sabra Williamson MD , [facility], OFFICE [address] [facility] [place] [address] 02/04/2022 10:27:41 02/04/2022 11:45:40 Pain in pelvis 40487793 R10.2 Seen in the [facility] 10/11/21 dx pelvic hematoma along left pubic bone. No improvemen t with rest and other supportive measures. Continues to limp, significan tly limiting activity. Given prolonged duration w/o improvemen t we should r/o occult fracture vs mass vs other. Will send for MRI of pelvis, pt agrees. Will follow imaging results. F/u as scheduled in 2.5 mos, sooner PRN. Essential hypertension 08769448 I10 Stable, BP at goal <130/80. Continues on lisinopril and HCTZ.Sia nue self-care, efforts to increase activity and lose weight, recommend low-salt diet. Consider home BP monitoring . DM visit q6 mos, f/u sooner PRN. Obesity 346599435 E66.01 Z68.37 Morbid obesity given BMI >35 w/ comorbidit ies (HTN). BMI 37.9, weight fairly stable. Physical activity currently limited by pelvic pain, pogo-stick related injury/fal l earlier this year.We discussed ways to help with weight: resume regular exercise, think about where she can improve in diet. Consider Weight Watchers, Prescribe the Y, or our Shared Medical Appointmen ts here for weight loss (10wk program). [id number] Sabra Williamson MD , [facility], OFFICE [address] [facility] [place] [address] 03/15/2022 09:53:09 03/15/2022 11:20:51 Acute upper respiratory infection 95407819 J06.9 c/o cough and sore throat. Centor score 1/5, POC strep neg, no indication s for throat culture. Likely viral URI. Educated patient that URI is a viral illness of the upper airways. It is not bacterial and does not benefit from antibiotic s. Average duration of URI is 7-10 days. Recommende d symptomati c treatments including NSAIDS, semi-uprig ht sleep position, antihistam meron at HS, limited course of nasal sympathomi metics and/or cough syrups, and nasal saline rinses with soft squeeze bottle or Neti pot. Return for fevers > 101 for 3 days, worsening sinus pain, or failure to resolve in 2-4 weeks. Cough 96144085 R05.9 Abrupt onset sore throat, cough, congestion and fatigue likely viral syndrome. D/dx: COVID-19, other viral syndrome, GAS/strep throat, asthma/keron ctive airway, sinusitis/ post-nasal drip.We discussed options, COVID PCR testing done today. She is not so unwell as to need to go to the ER immediatel y. Reviewed indication s for urgent eval/ED visit.Cont inue supportive care, rest, plenty of oral fluids, cough/deep breathing. Follow-up as needed for worsening symptoms, if fever worsens or persists, or failure to improve. [id number] Yoel Escalante MD Rheumatol martin, [facility] [address] [place] [address] 05/19/2022 15:02:59 05/24/2022 13:57:58 Psoriatic arthritis 171265361 L40.50 Pain of mu ltiple joints 76636193 M25.50 Likely psoriatic arthritis. Has a history of psoriasis, lactose intoleranc e, and microscopi c colitis.Fa carlos Villalobos.Doi ng well on Otezla with more than 95% improvemen t.Continue otezla. Patient was given samples till her medication is covered. Patient got the flu shot, PCV-13 and the COVID booster.Pa tient to get Shingrix. Check labs. I informed the patient that I will be leaving the practice and she has to contact her pcp to get a referral for rheumatolo gy. She verbalizes understand ing and has already received my letter. Intoleranc e to lactose 271007901 E73.9 Her symptoms improved after she stopped lactose in her diet. [id number] Sabra Williamson MD , [facility], OFFICE [address] [facility] [place] [address] 05/04/2022 08:56:24 05/04/2022 10:07:34 Adult health examination 885142913 Z00.00 - See risk assessment and lifestyle counseling . Preventati ve:Eye exam - Has glasses, no contacts. Recent eye exam a few weeks ago w/ Dr Sanchez. Right eye eyelid is rolling back when she is sleeping, recommende d she tape the eye closed at night.Josephine al exam - Routine dental cleanings/ exams q6 mos, no concerns.V accines - Td UTD. Flu shot given today. Vaccinated for COVID +boosted.C ervical cancer screening - Last pap 06/21/19 NILM & HPV neg, 5 yr repeat due 2023.Breas t cancer screening Last mammogram 01/28/21 WNL BiRads1, overdue for annual repeatColo n cancer screening Last colonoscop y 05/06/15 WNL, 10 yr repeat due 2024.LMP/B irth control - Menopausal since age 51.STI screening Hep C neg (2015). Declines comprehens damir screening including HIV.Substa nce use/alcoho l - Social alcohol intake (weekends) . No drug/MJ use. Annual wellness exam in 1 year. Counseling 780803582 Z71 .9 Cardiovasc ular risk reduction was discussed including benefits and risks of aspirin, exercise goals, healthy eating and healthy weight . Discussion greater than 7.5 minutes. Depression screening 171 425057 Z13.31 Depression screening tool administer ed, entered into EMR, scored and discussed, time greater than 7.5 minutes. PHQ-9 0/27, neg for active depression . Repeat screening in 1 year and PRN. Screening for alcohol abuse 395402897 Z13.39 Alcohol abuse screening tool administer ed, entered into EMR, scored and discussed, time greater than 7.5 minutes. Score 2/12, neg for alcohol misuse. Repeat screening in 1 year and PRN. Active or passive immunization 322916138 Z23 Immunized for seasonal flu. Discussed shingles vaccine, ordered. Psoriatic arthritis 1563 08886 L40.50 Uncontroll ed. Was better controlled with Otezla but seems her insurance is no longer covering this. Humira ineffectiv e so this was stopped. Intolerant of oral steroids - resulted in hallucinat ions.Follo wed by jonny patel (Dr Escalante), although needs to establish with velmaatidorian patel now that she is leaving [facility]. Obesity 103991878 E66.01 Z68.37 Morbid obesity given BMI >35 w/ comorbidit ies (HTN). BMI 37.6, weight fairly stable.We discussed ways to help with weight: resume regular exercise, think about where she can improve in diet. Consider Weight Watchers or our Shared Medical Appointmen ts here for weight loss (10wk program). Referral sent for prescribe the Y per her request. Screening mammography of bilateral breasts [id number] 18310 Z12.31 Last mammogram 01/28/21 WNL BiRads1, overdue for annual repeat, ordered. Essential hypertension 35715747 I10 Stable, BP at goal <130/80. Continues on lisinopril and HCTZ.Sia nue self-care, efforts to increase activity and lose weight, recommend low-salt diet. Consider home BP monitoring . DM visit q6 mos, f/u sooner PRN. Prediabetes 993693050 R7 3.03 A1c 6.2, up from 6.1. FBG now down from [address] referral, declined for now. Did not tolerate metformin due to GI SE.Continu e weight loss efforts, avoid simple carbs and concentrat ed sweets. Will continue to monitor. DM visit in 6 mos. Major depr essive disorder 382370838 F32.0 Mild depression , currently in remission, PHQ-9 0. Continues on low-dose sertraline with good effect, still feels like this is helpful and she would like to continue - needs rf.Discuss ed that the best outcomes, with lowest chance of remission occurs with a combinatio n of medication , counseling and good self-care: healthy eating, adequate sleep, avoiding negative psychoacti ve substances [like alcohol, caffeine] and regular exercise. F/u PRN. Hearing loss 22214296 H9 1.93 Subjective . Long hx of loud noise exposures. Asking people to repeat themselves . Will send referral to audiology for baseline hearing evaluation . [id number] Sabra Williamson MD , [facility], OFF[facility] [address] [facility] [place] [address] 11/02/2022 08:16:03 11/02/2022 09:09:42 Morbid obesity 500804949 E66.01 Z68.37 BMI 37.9. Weight stable, down a small amt per our scale but she reports she has put back on about 5lbs. We discussed ways to help with weight: resume regular exercise, think about where she can improve in diet. Consider Weight Watchers or our Shared Medical Appointmen ts here for weight loss (10wk program). 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 Prediabetes 894794499 R7 3.03 A1c 6.1, back down from 6.2. FBG stable at 101. Offered RD referral, declined for now. Did not tolerate metformin due to GI SE.Continu e weight loss efforts, avoid simple carbs and concentrat ed sweets. Will continue to monitor. DM visit in 6 mos. Essential hypertension 39886843 I10 Stable, BP at goal <130/80. Continues on lisinopril and HCTZ.Sia nue self-care, efforts to increase activity and lose weight, recommend low-salt diet. Consider home BP monitoring . DM visit q6 mos, f/u sooner PRN. Psoriatic arthritis 1563 32569 L40.50 Stable, continues on Otezla w/ benefit, needs rf. Reports that even taking once/day is better than being off entirely. ESR and CRP remain elevated but are trending down.Humir a ineffectiv e so this was stopped. Intolerant of oral steroids - resulted in hallucinat ions.Pendi ng new rheumatolo gy referral to [facility] rheum, former pt of Dr Escalante. Major depr essive disorder 365066180 F33.0 Mild recurrent depression . Continues on low-dose sertraline with good effect, still feels like this is helpful.Di scussed that the best outcomes, with lowest chance of remission occurs with a combinatio n of medication , counseling and good self-care: healthy eating, adequate sleep, avoiding negative psychoacti ve substances [like alcohol, caffeine] and regular exercise. F/u PRN. Backache 867747940 M54.9 Chronic and recurrent back pain related to her large chest, tamy bailey pursuing a breast reduction. Unclear if this would be covered by her insurance or a separate expense.El ects for [facility] breast center over [facility] due to location proximity. [id number] Sabra Williamson MD , [facility], OFFICE [address] [facility] [place] [address] 05/06/2023 11:18:49 05/06/2023 12:36:37 Adult health examination 474384964 Z00.00 Last PAP: 06/2019, nilm/HPV neg, repea 06/2024Las t Colonoscop y: 04/2015, rec 10 yr repeat, so do 2024Last mammogram: 08/2022, birads will repeat 08/2024Visi on: wears glasses, last visit last yearDental : follows regularlyD erm: has followed in the pastProxy: 05/2015 - Aminata Whitten and Salvador Dunlap on tdap and flu, discussed Shingrix, she will get from the pharmacyF/ u in 6 months for MM and for annual [place] in 1 year Screening for alcohol abuse 523022307 Z13.39 Alcohol use screening tool administer ed. AUDIT-C: 09/26. Encouraged to decrease use Allergic rhinitis 312291 04 J30.9 Stable with zyrtec 10mg daily, will use flonase occasional ly Essential hypertension 93360122 I10 BP at goal of <130/80, soft today on both arms. Taking HCTZ 25mg and lisinopril 5mg, advised to decrease HCTZ to 12.5mg (1/2 tab) and continue monitoring BP at home. 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 Will take an aspirin before long drives or flight Low back pain 276652775 M54.50 Reports tolerable at this time Impaired f asting glycemia 067813462 R73.01 A1c 6.3. FBG stable at 100. Did not tolerate metformin due to GI SE.Suspect s related to increased ETOH use in the summer and not being as active.Con tinue weight loss efforts, avoid simple carbs and concentrat ed sweets. Will continue to monitor. DM visit in 6 mos. Gastroesop hageal reflux disease 450977280 K21.9 Stable, taking OTC pepcid PRN as needed Major depr essive disorder 657734039 F32.9 PHQ-9: 027Mild recurrent depression . Continues on low-dose sertraline 12.5mg with good effect, still feels like this is helpful. Microscopic colitis 2357 52566 K52.839 No sxs. On SSZ for arthritis, possibly helping. Low dairy diet is helpful Pain of mu ltiple joints 74072105 M25.50 Following with rheumatolo gy as above Osteitis 627591515 M86.8 X8 MRI 02/2022 - injury after vaulting on pogo stick. Symptoms have improved, no longer a concern Psoriasis 9681977 L40.50 Has patches on elbows, clearing on left knee Psoriatic arthritis 1563 36902 L40.50 Stable, continues on Otezla w/ benefit, needs rf. Reports that even taking once/day is better than being off entirely. ESR and CRP remain elevated.H umira ineffectiv e so this was stopped. Intolerant of oral steroids - resulted in hallucinat ions.Follo wing with Dr. Catalan at [facility] Rheumatolo gy Rosacea 463412612 L71.9 Notices on right cheek lately, notices more with ETOH. Declined consistent medication Blepharitis 43342129 H01 .009 Of right eye as dx by optho, wears eye mask at night Intermitte nt palpitations 100634616 R00.2 x 3 months, intermitte nt without a specific pattern. Episodes can last up to 45 min, not associated with pain or SOB. Improves with coughing.R eports symptoms have improved with decreased caffeine intake.No recent TSH.Will obtain EKG today: NSR, no St/Twave abnormalit ies suggestive of ischemiaDi scussed holter, patient declined today but will notify us if symptoms persisting and she would like further workup. Red flag symptoms reviewed Large tonsils 164793658 J35.1 3+ on exam, reports since childhood. Was advised to have sleep study by optho. Unsure if she snores but feels rested when waking up.Uses nose strips occasional ly.Will refer to sleep med [id number] Sabra Williamson MD FP, [facility], OFFICE [address] [facility] [place] [address] 04/02/2024 11:28:10 04/02/2024 12:26:48 Allergic rhinitis 44388090 J30.9 Stable with zyrtec 10mg daily, will use flonase occasional ly Blepharitis 77149043 H01 .009 Of right eye as dx by ophtho, wears eye mask at night. Was told there may be improvemen t with ADRIANNA Essential hypertension 52935704 I10 BP at goal of <130/80. Dizziness improved with decreasing HCTZ.Sia nue HCTZ 12.5mg and lisinopril 5mg daily Factor II deficiency 739 33696 D68.2 Familial. Will take an aspirin before long drives or flight Gastroesop hageal reflux disease 238223170 K21.9 Stable, taking OTC pepcid PRN as needed Impaired f asting glycemia 005097416 R73.01 Labs 10/2023: A1C 6.1, down from 6.3 prior. FBG stable at 101.Did not tolerate metformin in the past due to GI SE.Suspect s related to increased ETOH use in the summer and not being as active.Rec heck with next labs Intermitte nt palpitations 048164808 R00.2 Resolved with decreasing HCTZ dose Large tonsils 319877011 J35.1 Awaiting appointmen t with ENT, no establishe d with sleep med and awaiting CPAP Low back pain 090187268 M54.50 UnstableNo tices by the end of her twice daily walks with her new dogTaking 2 tabs aleve BID along with Otezla per rheum. Reports pain was well managed with sulfasalaz ine in the pastAdvise d to f/u with rheum, consider gabapentin in the futureCont inue working with chiro and massage Microscopic colitis 2357 32696 K52.839 Resolved with lactose free diet Obstructiv e sleep apnea syndrome 80529108 G47.33 Per sleep study 11/2023 ordered by sleep med.Has not obtained CPAP yet. Awaiting appointmen t with ENT as well Psoriasis 9037448 L40.50 Improving Psoriatic arthritis 1563 28099 L40.50 Stable, continues on Otezla with ? benefit, needs. Reports that even taking once/day is better than being off entirely.E SR and CRP remain elevated.H umira ineffectiv e so this was stopped. Intolerant of oral steroids - resulted in hallucinat ions.Back pain has persisted despite taking 2 aleve BID since December per rheumDoes not want opiates. Discussed trial of gabapentin Will discuss sulfasalaz ine with rheum as this was effective in the past.Farrukh arce with Dr. Catalan at [facility] Rheumatolo gy Rosacea 191679230 L71.9 Notices on right cheek lately, notices more with ETOH.Reque sting refill of metronidaz oleWill refill Moderate r ecurrent major depression 56422829 F33.1 Mild recurrent depression . Continues on low-dose sertraline 12.5mg with good effect, still feels like this is helpful.Re inforced we are here to support Active or passive immunization 259347936 Z23 [id number] Sabra Williamson MD , [facility], [address] [place] [address] 07/03/2024 08:02:01 07/03/2024 09:17:58 Blepharitis 70306883 H01.009 Of right eye as dx by ophtho, improved with drops Essential hypertension 22746286 I10 BP at goal of <130/80. Dizziness improved with decreasing HCTZ.Given excellent BP control, will decrease lisinopril to 2.5mg daily.Cont inue HCTZ 12.5mg as wellBMP stable Factor II deficiency 739 44675 D68.2 Familial. Will take an aspirin before long drives or flight Impaired f asting glycemia 596498138 R73.01 Labs 06/2024: A1C 6.0%, decreased from prior. FBG 98Congratu lated on improvemen t!Did not tolerate metformin in the past due to GI SE.? related to ETOH use, which occurs more with higher stress levels. Feels she is in a better place now Large tonsils 865916124 J35.1 Has seen ENT, was told she is fineDiagno sed with ADRIANNA as below Low back pain 094127305 M54.50 Improving with monthly chiro and massageNot [...] and massage Moderate r ecurrent major depression 58906450 F33.1 Stable.Mil d recurrent depression with likely SAD. Continues on low-dose sertraline 12.5mg with good effect, still feels like this is helpful.Re inforced we are here to support Obstructiv e sleep apnea syndrome 45833223 G47.33 Per sleep study 11/2023 ordered by sleep med.Now using CPAP, settings recently titrated Psoriatic arthritis 1563 [address] Catalan at [facility] Rheumatolo [place], continues on Otezla with ? benefit, needs. [...] this was effective in the past. Rosacea 948800012 L71.9 Stable with metronidaz ole Screening for malignant neoplasm of cervix 140391870 Z12.4 Screening mammography 24 897841 Z12.31 [id number] Sabra Williamson MD , [facility], [address] [place] [address] 01/01/2025 13:51:51 01/01/2025 17:11:55 Adult health examination 914500945 Z00.00 Last PAP: 06/2024: NILM/HPV neg, repeat @age 63Last Colonoscop y: 04/2015, rec 10 yr repeat, due 04/2025. Prefers stool kitLast mammogram: 08/2024: Birads 1Vision: wears glasses, follows regularlyD ental: follows regularlyP christian: 05/2015 - Aminata Whitten and Vicenta Dunlap UTDF/u in 6 months for MM and for annual [place] in 1 year Screening for alcohol abuse 334689856 Z13.39 Alcohol use screening tool administer ed. AUDIT-C: 10/27 - discussed at length, comes in waves, doesn't feel dependent Allergic rhinitis 717136 04 J30.9 Stable with zyrtec 10mg daily, will use flonase occasional ly Essential hypertension 84808432 I10 BP at goal of <130/80. Current meds: HCTZ 12.5mg daily and lisinopril 2.5mg dailyGiven excellent BP control, will stop HCTZ. 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 Will take an aspirin before long drives or flight Gastroesop hageal reflux disease 702785317 K21.9 Stable, taking OTC pepcid 2x week - noticing when she only has coffee in the mornings (1/2 decaf) and worse with cheaper coffees. Impaired f asting glycemia 801257606 R73.01 Labs 12/2024: A1C in process6.0 %, decreased from prior. FBG 108Congrat ulated on improvemen t!Did not tolerate metformin in the past due to GI SE.? related to ETOH use, which occurs more with higher stress levels. Feels she is in a better place nowRefer to GLP-1 SMA as below Intermitte nt palpitations 823869364 R00.2 Resolved with decreasing HCTZ dose Large tonsils 724733530 J35.1 Has seen ENT, was told she is fineDiagno sed with ADRIANNA as below Low back pain 637178935 M54.50 Unstable with monthly chiro and massage. Denies radiculopa thy, numbness/t inglingInj ured while using a pogo stick a few years ago, fell backward onto cement floor.Hx T7 fracture in accident in the past Now with continuous back pain across her lower back feels like a band, will be sharp at times.Impa cting her ability to get out of bed. Can only go down stairs one step at a time. In the morning, takes 20 min to feel more lubricated .CT in 2021 in [place] - will request records. Taking 2 tabs aleve BID along with Otezla per rheum. Reports pain was well managed with sulfasalaz ine in the past Plan:Sia nue chiro/mass ageCheck lumbar xrayWill try MJ gummies, will also send PRN muscle relaxer (cyclobenz aprine)Mino l refer to [facility] Red flag symptoms reviewed Discussed indication s for new prescripti on, risks and benefits of medication , common side effects and how to manage, and reasons to notify prescriber of adverse effects or discontinu ation. Microscopic colitis 2357 21043 K52.839 Resolved with lactose free diet Moderate r ecurrent major depression 69809971 F33.1 Stable.PHQ -9: 08/13Mild recurrent depression with likely SAD. Continues on low-dose sertraline 12.5mg with good effect, still feels like this is helpful.Re inforced we are here to support Obstructiv e sleep apnea syndrome 95813729 G47.33 Per sleep study 11/2023 ordered by sleep med.Now using CPAP, settings recently titrated Psoriasis 3932363 L40.50 follows with rheum as below Psoriatic arthritis 1563 88001 L40.50 Following with [facility] Rheumatolo [facility], will be meeting new rheum Dr. Joseph as prior left 01/2025Stab le, continues on Otezla with ? benefit, needs. Reports that even taking once/day is better than being off entirely.E SR and CRP remain elevated, Humira ineffectiv e so this was stopped. Intolerant of oral steroids - resulted in hallucinat ions.Back pain has persisted despite taking 2 aleve BID since December per rheum - see above, does have some improvemen t with chiro and massage. Does not want opiates. Consider gabapentin Will discuss sulfasalaz ine with rheum as this was effective in the past. Rosacea 131537341 L71.9 Stable with metronidaz ole - continue Screening for malignant neoplasm of colon 396431598 Z12.11 You were given a stool kit today for Colorectal Cancer screening. Please review the instructio ns and return the kit to our office within 7 days. The kits so check the date before submitting the sample. Contact our office with any questions or concerns. Obesity 459126639 E66.81 2 Discussed at length, has very stressful job and working to drink water and move more but limited by weight and back painWill be swimming more this summerRefe rred to GLP-1 SMA Heart murmur 69231553 R0 1.1 Hx rheumatic feverMurmu r on exam, denies hx murmur2/6 systolicRe d flag symptoms reviewedCo nsider TTE in the future Health Concerns Section Related Observation LastModified by Organization Detai ls LastModified Time None Recorded Concern Status LastModified by Organization Details LastModified Time None Recorded Advance Directives Directive None Recorded Payers Insurance Date Sequence Insurance Name Policy Number Policy Garcia Covered Member ID Garcia Member ID Guarantor Name 02/09/2023 1 [facility] GIC - NAVIGATOR (POS) [id number] Chelly Morales [id number] Chelly Morales 01/08/2025 1 [facility] [employer] (POS) Chelly Morales [id number] Chelly Morales 10/15/2022 [employer] - [facility] (VISION) [id number] Chelly Morales [id number] Chelly Morales 10/27/2021 1 [facility] Chelly Morales [id number] Chelly Morales 10/27/2021 1 [facility] (HMO) [id number] Chelly Morales [id number] Chelly Morales 11/13/2013 [facility] [employer] Chelly Morales [id number] Chelly Morales 10/27/2021 1 [facility] (PPO) [id number] Chelly Morales [id number] Chelly Morales Notes Date Note Type Note Provider Name and Address Organization Details Recorded Time 3 text/html [facility] HypertensionReported bypatient.Duration:ASCVD 10-year risk (2.8%) Context:No ischemic heart disease; No kidney disease; No history of CVA; No congestive heart failure; No history of transient ischemic attacks; No peripheral vascular disease; No history of diabetes Control:Treated with diet and exercise; Treated with medications; Patient understands medications are to lower blood pressure Compliance:Compliant with medications; Compliant with diet; Compliant with exercise; Compliant with follow-up visits Barriers to CareNo identified barriers to care Self Care:not doing home bp monitoring Associated Symptoms:No chest pain; No shortness of breath; No edema; No fatigue; No palpitations; No decline in exercise capacity; No snoring Chelly is a 56-year-old woman who presents for a medical management visit. She has the following current problems/concerns: OBESITY/PREDIABETES:Has been working a lot recently. Diet has been horrendous recently Was down to 192lbs, has re-gained a few lbs recently.Did the Prescribe the Y in July. Could only get in the pool a few times which was frustrating for her.Going to be opening her pool next week which will help.Hoping to lose some weight, working on portion control.Strong fhx of T2DM.Previously stopped taking metformin due to abdominal cramping/ GI SE. Not interested in Ozempic/injections. PSORIATIC ARTHRITIS:Took her off the Humira. Didn't help at all.Hasn't scheduled w/ new rheum office yet, called them in June and they were waiting on insurance approval. Approval in our chart dated 08/09/22, she agrees to call them later today. DEPRESSION:Mood is good on very low-dose sertraline. Would like to continue. HTN: Patient presents for follow-up of their hypertension. Taking medications daily as prescribed. Side Effects: None Low salt diet: yes Caffeine intake: Heavy, has started 1/2 decaff Alcohol consumption: Rare, 1 night weekly, 1-2 drinks Doesn't Smoke (former smoker, quit 2000) Denies any new shortness of breath, cough, dizziness, chest pain, nausea, vomiting, leg swelling or weakness. An independent historian contributed to the patient's information for this visit: no. Patient is able to manage his medications BRENNON Sainz-Olive [address] [place] [address], [phone], [facility] 11/02/2022 09:00:33 3 text/html Risk Assessment and Lifestyle Change Counseling 50-64Reported bypatient.Coronary Artery Disease Risk Assessment:Family History of Coronary Artery Disease; No personal history of diabetes; No history of peripheral vascular disease, AAA, or carotid disease; No personal history of coronary artery disease Breast Cancer Risk Assessment:No family history of breast cancer; No history of breast cancer or dcis Colon Cancer Risk Assessment:No family history of colon polyps or cancer; No history of adenomatous colon polyps Lung Cancer Risk Assessment:Never smoked; No asbestos exposure Fracture Risk Assessment:No unexplained fracture Safety Risk Assessment:No evidence of abuse/neglect Diet:Counseled about appropriate portion size; Counseled about eating a diet low in trans and saturated fats and high in fiber, fruits and vegetables; Counseled about appropriate calcium intake and good dietary sources of calcium.; Counseled about the importance of maintaining a positive calcium balance and taking 1000 iu Vitamin D daily.; Counseled about decreasing carbohydrates; Counseled about decreasing salt in diet; Discussed the value of a Mediterranean diet , and eating more fruits and vegetables Exercise counseling:Discussed the importance of daily physical activity; Discussed the importance of weight bearing exercise Safety:Counseled about protecting skin from the sun and lowering the risk of skin cancer; Counseled about avoiding excessive and unsafe alcohol intake; Counseled about use of helmets for high velocity activiities; Counseled about home safety including use of smoke detectors, CO detectors, keeping home water temperature less than 120; Counseled about use of seat belts Patient is reporting intermittent palpitations.No particular pattern to these episodes, can happen at restReports that she can sometimes get them to stop by coughing. Patient additionally reports that sometimes she notes a irregular pulse on these occasions.Symptom onset x 3 months.Has had odd sensations recently where she felt things were tipped overHas not associated with SOB or painEpisodes last up to 45 min Additionally patient has noted an area of numbness to left lateral side of knee. Diet: lactose intolerant, mostly veggies and proteinDrinks water, a bit of tart kim juice and cranberries. No sodaExercise: Swims in the summer, has tried the Y but timing is difficultETOH: Drinks in spurts, sometimes not at all but 1 drink a few times/weekDrug Use: Denies, no MJ or tobaccoSexually Active: no, no concern for STIs. LMP 10 years Last PAP: 06/2019, nilm/HPV neg, repea 06/2024Last Colonoscopy: 04/2015, rec 10 yr repeat, so do 2024Last mammogram: 08/2022, birads will repeat 08/2024Vision: wears glasses, last visit last yearDental: follows regularlyDerm: has followed in the pastProxy: 05/2015 - Aminata Whitten and Germán, siblings Health Goals: Wants to lose 10 lbs prior to trip in December with her sisters in [place] BALTA Dow, NUVIA [address] [place] [address], [place], [phone], [facility] 05/06/2023 13:09:49 4 text/html Here for RAJAT Saw rheum in December, put on 2 Aleve BID, along with OtezlaNow walking 30 min BID with new dogLower back is very painful, will walk through the painHas lost some weightNot able to exercise as much because of pain Reports when she took sulfasalazine in the past, her pain resolved Awaiting ENT appointment next month BPs at home 120s/70s No further palpitations since decreasing HCTZ BALTA Dow NP [address] [place], [id number], [facility] 04/02/2024 12:21:21 4 text/html Here for RAJAT CPAP is working well, settings recently titrated Work has been stressful, has 2-3 years left [place] her siblings for a few weeks. Since getting her puppy over 1 year ago, has been walking 2-3 times/day, is moving much more BALTA Dow NP [address] [place], [id number], [facility] 07/03/2024 08:43:26 5 text/html Risk Assessment and Lifestyle Change Counseling 50-64Reported bypatient.Coronary Artery Disease Risk Assessment:Family History of Coronary Artery Disease; No personal history of diabetes; No history of peripheral vascular disease, AAA, or carotid disease; No personal history of coronary artery disease Breast Cancer Risk Assessment:No family history of breast cancer; No history of breast cancer or dcis Colon Cancer Risk Assessment:No family history of colon polyps or cancer; No history of adenomatous colon polyps Lung Cancer Risk Assessment:Never smoked; No asbestos exposure Fracture Risk Assessment:No unexplained fracture Safety Risk Assessment:No evidence of abuse/neglect Diet:Counseled about appropriate portion size; Counseled about eating a diet low in trans and saturated fats and high in fiber, fruits and vegetables; Counseled about appropriate calcium intake and good dietary sources of calcium.; Counseled about the importance of maintaining a positive calcium balance and taking 1000 iu Vitamin D daily.; Discussed the value of a Mediterranean diet , and eating more fruits and vegetables Exercise counseling:Discussed the importance of daily physical activity; Discussed the importance of weight bearing exercise Safety:Counseled about protecting skin from the sun and lowering the risk of skin cancer; Counseled about avoiding excessive and unsafe alcohol intake; Counseled about use of helmets for high velocity activiities; Counseled about home safety including use of smoke detectors, CO detectors, keeping home water temperature less than 120; Counseled about use of seat belts C/o severe back pain. Working with chiro and massageReports pain is limiting her physical activityReports band along her lower back that is very painfulWill have days in which pain is tolerable, but other days that pain is debilitating? if related to weight gainXray of left hip by chiro - hasn't seen the results Now having nodules of DIPs of both hands - similar to older siblings hands Lives with 1 dogWorks as associate professor of art history of allied health at [employer] [facility] and neighborsDiet: lactose intolerant, mostly veggies and protein, minimal carbsDrinks water, a bit of tart kim juice and cranberry diluted. No sodaExercise: Swims in the summer, has tried the [facility] but timing is difficult. Likes resistance trainingETOH: Increased in the last 6 months related - comes home from work and drinks 1-2 drinks when feels stressful. Sometimes doesn'tDrug Use: Denies, no MJ or tobacco but considering gummies for pain/stress reliefSexually Active: no, no concern for STIs. LMP 11 years Last PAP: 06/2024: NILM/HPV neg, repeat @age 63Last Colonoscopy: 04/2015, rec 10 yr repeat, due 04/2025. Prefers stool kitLast mammogram: 08/2024: Birads 1Vision: wears glasses, follows regularlyDental: follows regularlyProxy: 05/2015 - Catherine and Germán, siblings Health Goals: Wants to lose 10 lbs prior to trip in December with her sisters in [place] BALTA Dow, NUVIA [address] [place] [address], [place], [phone], [facility] 01/01/2025 15:06:33 OBGyn Episode No OBEpisode recorded.
== END 2025-01-29 16:09 | disposition home or self-care (01) ==
LOC: HO.RHE 15:00
PROVIDERS: PCP Nurse Practitioner Family; Visit Provider Student in an Organized Health Care Education/Training Program
DX: L40.50 Arthropathic psoriasis, unspecified (principal); M15.9 Polyosteoarthritis, unspecified
CPT/HCPCS: 99214